=== PATIENT | female | born 1940 | race Caucasian/White ===

== ENCOUNTER 2018-12-25 21:13 | Inpatient (IN) ==
[2018-12-25] MEDS ORDERED: SODIUM CHLORIDE 0.9% 1000ML 2,000 ML IV ONE (21:28)
[2018-12-25] MEDS ORDERED: LEVOFLOXACIN/D5W 750 MG/150 ML BAG IV SCH (21:30)
[2018-12-25 21:55] LABS: Basophils # (auto) 0.02 K/uL (0-0.2); Basophils % (auto) 0.2 %; Eosinophils # (auto) 0.15 K/uL (0-0.5); Eosinophils % (auto) 1.1 %; Hematocrit (blood only) 33.1 % (37-47); Hemoglobin 11.2 g/dL (12.0-16.0); Immature Granulocytes # (auto) 0.03 K/uL (0.00-0.02); Immature Granulocytes % (auto) 0.2 %; Lymphocytes # (auto) 0.44 K/uL (1.2-3.4); Lymphocytes % (auto) 3.3 %; Mean Corpuscular Hgb Conc 33.8 g/dL (32-36); Mean Corpuscular Volume 89.7 fL (80-100); Mean Platelet Volume 9.7 fL (7.4-10.4); Monocytes # (auto) 0.75 K/uL (0.11-0.59); Monocytes % (auto) 5.7 %; Neutrophils # (auto) 11.85 K/uL (1.4-6.5); Neutrophils % (auto) 89.5 %; Platelet Count 284 K/uL (130-400); RDW Coefficient of Variation 13.5 % (11.5-14.5); RDW Standard Deviation 44.6 fL (36.4-46.3); Red Blood Count 3.69 M/uL (4.2-5.4); White Blood Count 13.24 K/uL (4.8-10.8)
--- NOTE | 2018-12-25 21:55 | XRay Report ---
XR chest 1V portable CLINICAL HISTORY: Sepsis COMPARISON STUDY: Chest radiograph October 26, 2015. FINDINGS: There is no pneumothorax or pleural effusion. There is consolidation or evidence for pulmon deyanira edema. There is extensive mitral annular calcification. Mild cardiomegaly is noted. IMPRESSION: No acute cardiopulmonary findings. Electronically signed by: Frank Beal M.D. 12/25/2018 9:54 PM
[2018-12-25 22:10] LABS: Partial Thromboplastin Ratio 0.9; Partial Thromboplastin Time 24.1 Seconds (21.0-31.0); Prothrombin Time 9.7 Seconds (9.0-12.0)
[2018-12-25 22:11] LABS: Alanine Aminotransferase 54 U/L (12-78); Albumin Level 2.9 gm/dl (3.4-5.0); Aspartate Aminotransferase 77 U/L (15-37); BUN Creatinine Ratio 23.9 (10-20); Blood Urea Nitrogen 39 mg/dl (7-18); Calcium 8.4 mg/dl (8.5-10.1); Carbon Dioxide 23 mmol/L (21-32); Chloride 94 mmol/L (98-107); Est GFR (African American) 33.9; Est GFR (Non-African American) 29.2; Glucose 136 mg/dl (70-99); Potassium 3.7 mmol/L (3.5-5.1); Sodium 127 mmol/L (136-145)
[2018-12-25 22:11] LABS: iSTAT Hemoglobin 11.6 g/dl (12.0-16.0); iSTAT Ionized Calcium 1.08 mmol/l (1.12-1.32)
[2018-12-25 22:14] LABS: Albumin Globulin Ratio 0.7 (0.9-2); Alkaline Phosphatase 91 U/L (45-117); Bilirubin,Total 0.5 mg/dl (0.2-1); Globulin 4.3 gm/dl (2.5-4.0); Total Protein 7.2 gm/dl (6.4-8.2)
[2018-12-25] MEDS ORDERED: IOVERSOL 100ml IV PRN (22:31)
--- NOTE | 2018-12-25 22:58 | CT Scan Report ---
CT ANGIOGRAPHY OF THE CHEST, PULMONARY EMBOLUS PROTOCOL CLINICAL HISTORY: Hypoxia. Tachycardia. COMPARISON STUDY: Chest CT October 25, 2015. TECHNIQUE: Following IV administration of 94 mL of Optiray-320, helical axial images of the chest wer e obtained utilizing the pulmonary embolus protocol. Maximal intensity projections and sagittal and coronal reformats were viewed on an independent 3D workstation. IV contrast was administered without complication. Automated exposure control was utilized for the study. A dose lowering technique was utilized adhering to the principles of ALARA. CT DOSE: 186.32 mGy.cm FINDINGS: No central or lobar pulmonary emboli are identified. The segmental and subsegmental pulmon deyanira arteries are suboptimally assessed due to respiratory motion. The heart is moderately enlarged. T here is extensive mitral annular calcification. There is no pericardial effusion. Mildly enlarged sub carinal lymph node is similar to CT of October 25, 2015. The lungs are suboptimally assessed given r espiratory motion. There are scattered tree-in-bud nodules predominantly within the lower lobes and r ight middle lobe. There is minimal bronchiectasis. No pneumothorax or pleural effusion is noted. Calc ified granulomas within the liver and spleen are incidentally noted. IMPRESSION: 1. Exam moderately compromised by respiratory motion. No central or lobar pulmonary emboli. 2. Lungs suboptimally assessed given significant respiratory motion artifact. Mild bilateral lower lo be, right middle lobe and lingular opacities which favor an infectious process such as an atypical my cobacterial infection. 3. Moderate cardiomegaly. Electronically signed by: Frank Beal M.D. 12/25/2018 10:56 PM
[2018-12-25] MEDS ORDERED: cefTRIAXone SODIUM 1,000 MG/50 ML BAG IV STA (23:09)
[2018-12-25] MEDS ORDERED: ACETAMINOPHEN 500 MG TAB PO STA (23:09)
--- NOTE | 2018-12-26 00:02 | History & Physical Report ---
Date of Service December 26, 2018 Assessment & Plan (1) Multifocal pneumonia: CT scan this admission, was read similarly to CT scan from admission 2015 , with concerns regarding possibility of atypical mycobacterial infection. At that time, pulmonary was consulted, but did not want bronchoscopy performed at that time. We will consult pulmonology again this time, and she and family are aware that if she does not respond completely to the treatment begun, that a bronchoscopy would be in order to find out the exact cause, and treat appropriately. Placed on ceftriaxone 1 g IV daily, levofloxacin 500 mg IV every 24 hours Duonebs every 4 hours while awake and every 2 hours when necessary. Solu-Medrol 40 mg IV every 8 hours. Present on Admission?: Yes (2) Sepsis: Sepsis with mild hypotension-- Responded to initial 2 L of normal saline fluid bolus by the ED. Then additional 500 mL's normal saline and 25 g of albumin IV. Present on Admission?: Yes (3) Hypotension: As above Present on Admission?: Yes (4) Hyponatremia: Likely secondary to hydrochlorothiazide, which will be held. Rehydration as noted above, and then retest in the a.m. Present on Admission?: Yes (5) Acute kidney injury: Likely related in part to decreased overall oral intake due to illness. We will hold lisinopril/HCTZ as it is a likely contributor in this setting. Present on Admission?: Yes History of Present Illness Chief Complaint: The patient presents to the emergency department with symptoms of generalized weakness and a cough that began a few months ago. Her family who is with her reports that she almost fell over when she was trying to walk due to generalized weakness. Primary Care Provider: Joellen Kolb MD The patient is an 78-year-old female who presents to the emergency department with worsening generalized weakness that began with an intermittent cough a few months ago, but worsened considerably over the past days. She has been treated recently with antibiotics and prednisone, but her symptoms have been persistent and progressive. She had a similar episode happened in 2014, when she was admitted to this hospital. Allergies Allergy/AdvReac Type Severity Reaction Status Date / Time Penicillins AdvReac Unknown GI SYMPTOMS Verified 12/25/18 22:48 Home Medications Home Medications Medication Instructions Recorded Confirmed Type amlodipine 2.5 mg PO DAILY 12/25/18 12/25/18 History aspirin [Aspir-81] 81 mg PO DAILY 12/25/18 12/25/18 History lisinopril-hydrochlorothiazide 1 tab PO DAILY 12/25/18 12/25/18 History lovastatin 40 mg PO DAILY 12/25/18 12/25/18 History metoprolol succinate 50 mg PO DAILY 12/25/18 12/25/18 History ranitidine HCl 150 mg PO HS 12/25/18 12/25/18 History Past Med/Surg History Medical History Heart murmur (Chronic) High blood pressure (Chronic) High cholesterol (Chronic) Family History Other No pertinent family history Social History Current Living Situation: Family Other Information That Helps Us Care for You: No Feels Safe at Home: Yes Safety Concerns: Feels Safe At This Time Smoking Status: Never smoker Do You Dip or Chew Tobacco: No Second Hand Exposure: No Tobacco Cessation Education Requested by Patient: No Hx Alcohol Use: No Hx Substance Use: No Beliefs That Will Affect Care: None Preferred Language: Sergio Reid Communication Ability: Effective Hospice Nurse Required: No Review of Systems The patient denies chest pain, palpitations, lower extremity swelling, sore throat, sweats, weight change, nausea, vomiting, diarrhea , constipation, abdominal pain, pelvic pain, blood in urine or stool, dysuria, urinary frequency or urgency, headache, memory loss, loss of consciousness, rash, abnormal bruising or bleeding, focal weakness, numbness or tingling in arms or legs, generalized arthralgias or myalgias, back or neck pain, or night sweats. The review of systems is otherwise negative other than for that already noted above, and at least 10 systems have been reviewed. Physical Exam 2 Vital Signs (Past 24 Hours): Last Vital Signs Temp 36.9 C 12/25/18 23:42 Pulse 113 H 12/25/18 23:45 Resp 32 H 12/25/18 23:45 BP 96/66 L 12/25/18 23:45 Pulse Ox 95 12/25/18 23:45 Physical Exam: The patient is awake, alert and oriented �3, normocephalic and atraumatic, lying in bed and in no acute distress. HEENT--PERRL, EOMI, mucous membranes and oropharynx dry. Neck--supple. No JVD. No bruits. Thyroid normal, trachea midline, no adenopathy. Heart--normal S1 and S2. No murmurs, rubs or gallops. Lungs--decreased breath sounds overall, few coarse breath sounds Abdomen--normal bowel sounds and soft. Nontender. Nondistended. Extremities--no cyanosis or clubbing. No edema. There are good distal pulses b/ l. Dermatologic--normal skin turgor, normal color, no abnormal lymph nodes, no rash. Neurologic--cranial nerves II through XII grossly intact. Rheumatologic--normal range of motion. Psychiatric--normal affect. Results & Data Laboratory Results Laboratory Results WBC 13.24 K/uL (4.8-10.8) H 12/25/18 21:32 RBC 3.69 M/uL (4.2-5.4) L 12/25/18 21:32 Hgb 11.2 g/dL (12.0-16.0) L 12/25/18 21:32 POC Hgb 11.6 g/dl (12.0-16.0) L 12/25/18 21:54 Hct 33.1 % (37-47) L 12/25/18 21:32 POC Hct 34 % (37-47) L 12/25/18 21:54 MCV 89.7 fL (80-100) 12/25/18 21:32 MCH 30.4 pg (25-34) 12/25/18 21:32 MCHC 33.8 g/dL (32-36) 12/25/18 21:32 RDW Std Deviation 44.6 fL (36.4-46.3) 12/25/18 21:32 RDW Coeff of [place] 13.5 % (11.5-14.5) 12/25/18 21:32 Plt Count 284 K/uL (130-400) 12/25/18 21:32 MPV 9.7 fL (7.4-10.4) 12/25/18 21:32 Immature Gran % (Auto) 0.2 % 12/25/18 21:32 Neut % (Auto) 89.5 % 12/25/18 21:32 Lymph % (Auto) 3.3 % 12/25/18 21:32 [place] % (Auto) 5.7 % 12/25/18 21:32 Eos % (Auto) 1.1 % 12/25/18 21:32 Baso % (Auto) 0.2 % 02/18/19 21:32 Immature Gran # (Auto) 0.03 K/uL (0.00-0.02) H 12/25/18 21:32 Neut # (Auto) 11.85 K/uL (1.4-6.5) H 12/25/18 21:32 Lymph # (Auto) 0.44 K/uL (1.2-3.4) L 12/25/18 21:32 [place] # (Auto) 0.75 K/uL (0.11-0.59) H 12/25/18 21:32 Eos # (Auto) 0.15 K/uL (0-0.5) 12/25/18 21:32 Baso # (Auto) 0.02 K/uL (0-0.2) 12/25/18 21:32 PT 9.7 Seconds (9.0-12.0) 12/25/18 21:32 INR 1.0 (0.9-1.1) 12/25/18 21:32 APTT 24.1 Seconds (21.0-31.0) 12/25/18 21:32 PTT Ratio 0.9 12/25/18 21:32 POC Sodium 127 mEq/L (135-144) L 12/25/18 21:54 Sodium 127 mmol/L (136-145) L 12/25/18 21:32 POC Potassium 3.8 mEq/L (3.3-5.0) 12/25/18 21:54 Potassium 3.7 mmol/L (3.5-5.1) 12/25/18 21:32 POC Chloride 95 mEq/L (101-112) L 12/25/18 21:54 Chloride 94 mmol/L (98-107) L 12/25/18 21:32 Carbon Dioxide 23 mmol/L (21-32) 12/25/18 21:32 POC Total CO2 21 mEq/l (24-31) L 12/25/18 21:54 Anion Gap 9.0 (3-11) 12/25/18 21:32 POC Anion Gap 17.0 mmol/L (16-25) 12/25/18 21:54 POC BUN 33 mg/dl (7-18) H 12/25/18 21:54 BUN 39 mg/dl (7-18) H 12/25/18 21:32 Creatinine 1.64 mg/dl (0.6-1.2) H 12/25/18 21:32 POC Creatinine 1.6 mg/dl (0.6-1.3) H 12/25/18 21:54 Est Cr Clr Drug Dosing Not Reportable 12/25/18 21:32 Est GFR ( Amer) 33.9 12/25/18 21:32 Est GFR (Non-Af Amer) 29.2 12/25/18 21:32 BUN/Creatinine Ratio 23.9 (10-20) H 12/25/18 21:32 Glucose 136 mg/dl (70-99) H 12/25/18 21:32 POC Glucose (other) 140 mg/dl (70-99) H 12/25/18 21:54 Osmolality 278 mOsm/kg (280-300) L 12/25/18 21:32 Lactate 1.7 mmol/L (0.4-2.0) 12/25/18 21:32 Calcium 8.4 mg/dl (8.5-10.1) L 12/25/18 21:32 POC Ioniz Calcium [place] 1.08 mmol/l (1.12-1.32) L 12/25/18 21:54 Phosphorus 3.0 mg/dl (2.5-4.9) 12/25/18 21:32 Total Bilirubin 0.5 mg/dl (0.2-1) 12/25/18 21:32 AST 77 U/L (15-37) H 12/25/18 21:32 ALT 54 U/L (12-78) 12/25/18 21:32 Alkaline Phosphatase 91 U/L (45-117) 12/25/18 21:32 Troponin I 0.130 ng/ml (0-0.045) H* 12/25/18 21:32 Total Protein 7.2 gm/dl (6.4-8.2) 12/25/18 21:32 Albumin 2.9 gm/dl (3.4-5.0) L 12/25/18 21:32 Globulin 4.3 gm/dl (2.5-4.0) H 12/25/18 21:32 Albumin/Globulin Ratio 0.7 (0.9-2) L 12/25/18 21:32 Urine Color Yellow 12/26/18 01:45 Urine Appearance Clear (Clear) 12/26/18 01:45 Urine pH 5.0 (4.5-7.5) 12/26/18 01:45 Ur Specific [place] > 1.045 (1.000-1.030) H 12/26/18 01:45 Urine Protein Negative (Negative) 12/26/18 01:45 Urine Glucose (UA) Negative (Negative) 12/26/18 01:45 Urine Ketones Negative (Negative) 12/26/18 01:45 Urine Blood Negative (Negative) 12/26/18 01:45 Urine Nitrite Negative (Negative) 12/26/18 01:45 Urine Bilirubin Negative (Negative) 12/26/18 01:45 Urine Urobilinogen Negative (Negative) 12/26/18 01:45 Ur Leukocyte Esterase Negative (Negative) 12/26/18 01:45 Urine Osmolality 471 mOsm/kg (500-800) L 12/26/18 01:45 Influenza Type A Ag Neg for Influ A (Neg) 12/25/18 21:38 Influenza Type B Ag Neg for Influ B (Neg) 12/25/18 21:38 Diagnostic Findings [place], [place] [phone] XRay Report Patient: ELIZABEHT HERRERAAdmit Date: 12/25/18 MR#: [id number]: [address] Acct ID:[id number]: Date: 1940City Zip: [place] [address] Age: 78Location: ED Sex: F Room/Bed: Att Phy: Diagnosis: WEAK AND COUGHING Jamilah Phy: Joellen Kolb MDService Date: 12/25/18 Fam Phy: Interpreting Phy: Frank Beal MD Admit Phy: Ordering Phy: Raciel Foote DO cc: ~ XR chest 1V portable CLINICAL HISTORY: Sepsis COMPARISON STUDY: Chest radiograph October 26, 2015. FINDINGS: There is no pneumothorax or pleural effusion. There is consolidation or evidence for pulmonary edema. There is extensive mitral annular calcification. Mild cardiomegaly is noted. IMPRESSION: No acute cardiopulmonary findings. Electronically signed by: Frank Beal M.D. 12/25/2018 9:54 PM Dictated: 12/25/[id number] Transcribed: 12/25/182151 [place], [place] [phone] CT Scan Report Patient: ELIZABETH HERRERAAdmit Date: 12/25/18 MR#: [id number]: [address] Acct ID:[id number]: Date: 1940City Zip: [place] [address] Age: 78Location: ED Sex: F Room/Bed: Att Phy: Diagnosis: WEAK AND COUGHING Jamilah Phy: Kennedi Lucgirish MDService Date: 12/25/18 Fam Phy: Interpreting Phy: Frank Beal MD Admit Phy: Ordering Phy: Raciel Foote, cc: ~ CT ANGIOGRAPHY OF THE CHEST, PULMONARY EMBOLUS PROTOCOL CLINICAL HISTORY: Hypoxia. Tachycardia. COMPARISON STUDY: Chest CT October 25, 2015. TECHNIQUE: Following IV administration of 94 mL of Optiray-320, helical axial images of the chest were obtained utilizing the pulmonary embolus protocol. Maximal intensity projections and sagittal and coronal reformats were viewed on an independent 3D workstation. IV contrast was administered without complication. Automated exposure control was utilized for the study. A dose lowering technique was utilized adhering to the principles of ALARA. CT DOSE: 186.32 mGy.cm FINDINGS: No central or lobar pulmonary emboli are identified. The segmental and subsegmental pulmonary arteries are suboptimally assessed due to respiratory motion. The heart is moderately enlarged. There is extensive mitral annular calcification. There is no pericardial effusion. Mildly enlarged subcarinal lymph node is similar to CT of October 25, 2015. The lungs are suboptimally assessed given respiratory motion. There are scattered tree-in-bud nodules predominantly within the lower lobes and right middle lobe. There is minimal bronchiectasis. No pneumothorax or pleural effusion is noted. Calcified granulomas within the liver and spleen are incidentally noted. IMPRESSION: 1. Exam moderately compromised by respiratory motion. No central or lobar pulmonary emboli. 2. Lungs suboptimally assessed given significant respiratory motion artifact. Mild bilateral lower lobe, right middle lobe and lingular opacities which favor an infectious process such as an atypical mycobacterial infection. 3. Moderate cardiomegaly. Electronically signed by: Frank Beal M.D. 12/25/2018 10:56 PM Dictated: 12/25/[id number] Transcribed: 12/25/188 Code Status & VTE Plan Code Status Full code VTE Prophylaxis Plan VTE Prophylaxis will be ordered: Yes _ (1) Sepsis Sepsis type: sepsis due to unspecified organism Qualified Code(s): A41.9 - Sepsis, unspecified organism
[2018-12-26] MEDS ORDERED: SODIUM CHLORIDE 0.9% 1000ML 500 ML IV ONE (01:02)
[2018-12-26] MEDS ORDERED: ALBUMIN 25% 50 ML IV ONE (01:03)
[2018-12-26] MEDS ORDERED: ALBUMIN HUMAN 25% 12.5 GM/50 ML VIAL IV ONE (01:15)
--- NOTE | 2018-12-26 01:27 | Emergency Department Note ---
Entered by Lanny Roman acting as a scribe for History of Present Illness General Chief complaint: Weakness Stated complaint: WEAK AND COUGHING Source: patient History of Present Illness Onset (ago): month(s) (a few months ago) Location: chest, upper extremity and lower extremity Pain Consistency: + other (worsening) Quality: + other (weakness and cough) Associated symptoms: + cough and + other (Positive runny nose, ear pain. Negative abdominal pain, urinary symptoms); no chest pain The patient is a 78 year old female who presents to the Emergency Room with complaints of weakness beginning a few months ago. She reports she is weak and has a cough but every time she completes a course of medications, her cough returns. She notes her cough has worsened and she has a runny nose and right ear pain. Pt denies chest pain, abdominal pain, or urinary symptoms. Her last normal BM was yesterday. No other exacerbating or remitting factors. She does note that she feels extremely weak. She denies any belly pain dysuria urgency or frequency. No nausea vomiting. Home Medications Home Medications Medication Instructions Recorded Confirmed Type amlodipine 2.5 mg PO DAILY 12/25/18 12/25/18 History aspirin [Aspir-81] 81 mg PO DAILY 12/25/18 12/25/18 History lisinopril-hydrochlorothiazide 1 tab PO DAILY 12/25/18 12/25/18 History lovastatin 40 mg PO DAILY 12/25/18 12/25/18 History metoprolol succinate 50 mg PO DAILY 12/25/18 12/25/18 History ranitidine HCl 150 mg PO HS 12/25/18 12/25/18 History Allergies Allergy/AdvReac Type Severity Reaction Status Date / Time Penicillins AdvReac Unknown GI SYMPTOMS Verified 12/25/18 22:48 Past Med/Surg History Medical History Heart murmur (Chronic) High blood pressure (Chronic) High cholesterol (Chronic) Family History Other No pertinent family history Social History Feels Safe at Home: Yes Smoking Status: Never smoker Review of Systems See HPI for pertinent positives & negatives. and A total of 10 systems reviewed and were otherwise negative Physical Exam Vital Signs Vital Signs - 24 hr 12/25/18 21:15 12/25/18 21:35 12/25/18 22:12 Temperature 38.1 C H Temperature Source Oral Sepsis Recent Fever Within 48 Hours Yes Sepsis New/Unexplained Change in Mental Status Yes Sepsis Action Taken by Nursing No Action Required Pulse Rate 118 H 113 H Respiratory Rate 21 27 H Respiratory Effort / Characteristics Non-Labored Spontaneous Respiratory Depth Normal Blood Pressure 96/60 L 94/52 L Blood Pressure Mean 72 66 Pulse Oximetry 89 L 93 95 Oxygen Delivery Method Room Air Room Air Room Air 12/25/18 22:15 12/25/18 23:13 12/25/18 23:15 Temperature Temperature Source Sepsis Recent Fever Within 48 Hours Sepsis New/Unexplained Change in Mental Status Sepsis Action Taken by Nursing Pulse Rate 112 H 113 H 113 H Respiratory Rate 32 H 25 H 29 H Respiratory Effort / Characteristics Respiratory Depth Blood Pressure 86/55 L 95/55 L 94/53 L Blood Pressure Mean 65 68 66 Pulse Oximetry 95 96 95 Oxygen Delivery Method Room Air Room Air Room Air 12/25/18 23:30 12/25/18 23:42 12/25/18 23:45 Temperature 36.9 C Temperature Source Oral Sepsis Recent Fever Within 48 Hours Sepsis New/Unexplained Change in Mental Status Sepsis Action Taken by Nursing Pulse Rate 113 H 113 H Respiratory Rate 30 H 32 H Respiratory Effort / Characteristics Respiratory Depth Blood Pressure 98/59 L 96/66 L Blood Pressure Mean 72 76 Pulse Oximetry 94 95 Oxygen Delivery Method Room Air Room Air 12/26/18 00:00 12/26/18 00:15 12/26/18 00:20 Temperature Temperature Source Sepsis Recent Fever Within 48 Hours Sepsis New/Unexplained Change in Mental Status Sepsis Action Taken by Nursing Pulse Rate 114 H 112 H 108 H Respiratory Rate 30 H 32 H 23 Respiratory Effort / Characteristics Respiratory Depth Blood Pressure 84/52 L 79/44 L 63/43 L Blood Pressure Mean 62 55 49 Pulse Oximetry 98 95 96 Oxygen Delivery Method Room Air Room Air Room Air 12/26/18 00:22 12/26/18 00:26 12/26/18 00:27 Temperature Temperature Source Sepsis Recent Fever Within 48 Hours Sepsis New/Unexplained Change in Mental Status Sepsis Action Taken by Nursing Pulse Rate 110 H 107 H 107 H Respiratory Rate 29 H 24 29 H Respiratory Effort / Characteristics Respiratory Depth Blood Pressure 78/43 L 76/44 L 73/42 L Blood Pressure Mean 54 54 52 Pulse Oximetry 95 97 97 Oxygen Delivery Method Room Air Room Air Room Air 12/26/18 00:31 12/26/18 00:45 Temperature Temperature Source Sepsis Recent Fever Within 48 Hours Sepsis New/Unexplained Change in Mental Status Sepsis Action Taken by Nursing Pulse Rate 107 H 106 H Respiratory Rate 28 H 29 H Respiratory Effort / Characteristics Respiratory Depth Blood Pressure 82/50 L 73/43 L Blood Pressure Mean 60 53 Pulse Oximetry 98 98 Oxygen Delivery Method Room Air Room Air GENERAL: Laying in bed, alert, disheveled, non-toxic EYE EXAM: normal conjunctiva. OROPHARYNX: no exudate, no erythema, lips, buccal mucosa, and tongue normal and mucous membranes are moist NECK: supple, no nuchal rigidity, no adenopathy, non-tender LUNGS: Clear to auscultation. Normal chest wall mechanics. Coarse at the bases. HEART: Positive systolic ejection murmur, S1 normal and S2 normal ABDOMEN: abdomen soft, non-tender, normo-active bowel, sounds, no masses, no rebound or guarding. BACK: Back is symmetrical on inspection and there is no deformity, no midline tenderness, no CVA tenderness. SKIN: no rashes and no bruising UPPER EXTREMITIES: upper extremities are grossly normal. LOWER EXTREMITIES: No pitting edema. NEURO EXAM: Normal sensorium, cranial nerves II-XII grossly intact, normal speech, no gross weakness of arms, no gross weakness of legs. Course ED COURSE: Vital signs were reviewed and showed hypotensive The patients medical record was reviewed The above diagnostic studies were performed and reviewed. ED treatments and interventions as stated above. 2123: The patient was evaluated in room C2. A complete history and physical examination was performed. 2155: Previous echo reviewed. EF of 50% with moderate to severe . 2356: I reviewed the patient's case with Dr. Fuentes [facility] Hospitalist. He will evaluate the patient for further management. 2300: Upon reevaluation, the patient is feeling slightly better. I discussed my findings with the patient and she understands and agrees with the treatment plan. Based on the patients age, coexisting illnesses, exam and lab findings the decision to treat as an inpatient was made. The patient remained stable while under my care. The patient will be evaluated for further management. Consultations Consultation #1: I reviewed the patient's case with Dr. Fuentes, [facility] Hospitalist. He will evaluate the patient for further management. Time: 23:56 Administered Medications Levofloxacin/Dextrose (Levaquin/D5w) 750 mg in 150 mls @ 100 mls/hr IV Q24H [facility] Stop: 12/27/18 21:29 Last Infusion: 12/26/18 00:23 Dose: 0 mls/hr Admin: 12/25/18 22:14 Dose: 100 mls/hr Sodium Chloride (Nss 1000ml) 500 mls @ 999 mls/hr IV .Q31M ONE Stop: 12/26/18 01:32 Last Admin: 12/26/18 01:10 Dose: 999 mls/hr Albumin Human (Albumin 25%) 50 mls @ 50 mls/hr IV ONE ONE Stop: 12/26/18 02:02 Last Admin: 12/26/18 01:18 Dose: 50 mls/hr Ioversol (Optiray 320 100ml) 94 ml IV ONCE PRN PRN Reason: Interaction Checking Stop: 12/29/18 22:30 Last Admin: 12/25/18 22:31 Dose: 94 ml Discontinued Medications Acetaminophen (Tylenol) 1,000 mg PO NOW STA Stop: 12/25/18 23:10 Last Admin: 12/25/18 23:38 Dose: Not Given Sodium Chloride (Nss 1000ml) 2,000 mls @ 999 mls/hr IV .Q2H1M ONE Stop: 12/25/18 23:28 Last Infusion: 12/26/18 00:54 Dose: 0 mls/hr Admin: 12/25/18 22:13 Dose: 999 mls/hr Ceftriaxone Sodium (Rocephin) 1,000 mg in 50 mls @ 100 mls/hr IV NOW STA Stop: 12/25/18 23:38 Last Infusion: 12/26/18 00:14 Dose: 0 mls/hr Admin: 12/25/18 23:38 Dose: 100 mls/hr Medical Decision Making Differential Diagnosis Differential diagnosis includes etiologies such as sepsis, UTI, pneumonia, metabolic, electrolyte abnormalities, cardiac sources, intracerebral event, toxicologic, neurologic, as well as others were entertained. Medical Records Attestation: I reviewed the patient's medical records. Home Medications Current Medication List: was personally reviewed by me Laboratory Data Attestation: I reviewed the patient's lab results. Result diagrams: 12/25/18 21:32 12/25/18 21:32 Lab Results 12/25/18 12/25/18 12/25/18 Range/Units 21:32 21:32 21:32 WBC 13.24 H (4.8-10.8) K/uL RBC 3.69 L (4.2-5.4) M/uL Hgb 11.2 L (12.0-16.0) g/dL POC Hgb (12.0-16.0) g/dl Hct 33.1 L (37-47) % POC Hct (37-47) % MCV 89.7 (80-100) fL MCH 30.4 (25-34) pg MCHC 33.8 (32-36) g/dL RDW Std Deviation 44.6 (36.4-46.3) fL RDW Coeff of Savanna 13.5 (11.5-14.5) % Plt Count 284 (130-400) K/uL MPV 9.7 (7.4-10.4) fL Immature Gran % (Auto) 0.2 % Neut % (Auto) 89.5 % Lymph % (Auto) 3.3 % Tyler % (Auto) 5.7 % Eos % (Auto) 1.1 % Baso % (Auto) 0.2 % Immature Gran # (Auto) 0.03 H (0.00-0.02) K/uL Neut # (Auto) 11.85 H (1.4-6.5) K/uL Lymph # (Auto) 0.44 L (1.2-3.4) K/uL Tyler # (Auto) 0.75 H (0.11-0.59) K/uL Eos # (Auto) 0.15 (0-0.5) K/uL Baso # (Auto) 0.02 (0-0.2) K/uL PT 9.7 (9.0-12.0) Seconds INR 1.0 (0.9-1.1) APTT 24.1 (21.0-31.0) Seconds PTT Ratio 0.9 POC Sodium (135-144) mEq/L Sodium 127 L (136-145) mmol/L POC Potassium (3.3-5.0) mEq/L Potassium 3.7 (3.5-5.1) mmol/L POC Chloride (101-112) mEq/L Chloride 94 L (98-107) mmol/L Carbon Dioxide 23 (21-32) mmol/L POC Total CO2 (24-31) mEq/l Anion Gap 9.0 (3-11) POC Anion Gap (16-25) mmol/L POC BUN (7-18) mg/dl BUN 39 H (7-18) mg/dl Creatinine 1.64 H (0.6-1.2) mg/dl POC Creatinine (0.6-1.3) mg/dl Est Cr Clr Drug Dosing Not Reportable Est GFR ( Amer) 33.9 Est GFR (Non-Af Amer) 29.2 BUN/Creatinine Ratio 23.9 H (10-20) Glucose 136 H (70-99) mg/dl POC Glucose (other) (70-99) mg/dl Osmolality (280-300) mOsm/kg Lactate (0.4-2.0) mmol/L Calcium 8.4 L (8.5-10.1) mg/dl POC Ioniz Calcium Cintia (1.12-1.32) mmol/l Total Bilirubin 0.5 (0.2-1) mg/dl AST 77 H (15-37) U/L ALT 54 (12-78) U/L Alkaline Phosphatase 91 (45-117) U/L Total Protein 7.2 (6.4-8.2) gm/dl Albumin 2.9 L (3.4-5.0) gm/dl Globulin 4.3 H (2.5-4.0) gm/dl Albumin/Globulin Ratio 0.7 L (0.9-2) Influenza Type A Ag (Neg) Influenza Type B Ag (Neg) 12/25/18 12/25/18 12/25/18 Range/Units 21:32 21:32 21:38 WBC (4.8-10.8) K/uL RBC (4.2-5.4) M/uL Hgb (12.0-16.0) g/dL POC Hgb (12.0-16.0) g/dl Hct (37-47) % POC Hct (37-47) % MCV (80-100) fL MCH (25-34) pg MCHC (32-36) g/dL RDW Std Deviation (36.4-46.3) fL RDW Coeff of Savanna (11.5-14.5) % Plt Count (130-400) K/uL MPV (7.4-10.4) fL Immature Gran % (Auto) % Neut % (Auto) % Lymph % (Auto) % Tyler % (Auto) % Eos % (Auto) % Baso % (Auto) % Immature Gran # (Auto) (0.00-0.02) K/uL Neut # (Auto) (1.4-6.5) K/uL Lymph # (Auto) (1.2-3.4) K/uL Tyler # (Auto) (0.11-0.59) K/uL Eos # (Auto) (0-0.5) K/uL Baso # (Auto) (0-0.2) K/uL PT (9.0-12.0) Seconds INR (0.9-1.1) APTT (21.0-31.0) Seconds PTT Ratio POC Sodium (135-144) mEq/L Sodium (136-145) mmol/L POC Potassium (3.3-5.0) mEq/L Potassium (3.5-5.1) mmol/L POC Chloride (101-112) mEq/L Chloride (98-107) mmol/L Carbon Dioxide (21-32) mmol/L POC Total CO2 (24-31) mEq/l Anion Gap (3-11) POC Anion Gap (16-25) mmol/L POC BUN (7-18) mg/dl BUN (7-18) mg/dl Creatinine (0.6-1.2) mg/dl POC Creatinine (0.6-1.3) mg/dl Est Cr Clr Drug Dosing Est GFR ( Amer) Est GFR (Non-Af Amer) BUN/Creatinine Ratio (10-20) Glucose (70-99) mg/dl POC Glucose (other) (70-99) mg/dl Osmolality 278 L (280-300) mOsm/kg Lactate 1.7 (0.4-2.0) mmol/L Calcium (8.5-10.1) mg/dl POC Ioniz Calcium Cintia (1.12-1.32) mmol/l Total Bilirubin (0.2-1) mg/dl AST (15-37) U/L ALT (12-78) U/L Alkaline Phosphatase (45-117) U/L Total Protein (6.4-8.2) gm/dl Albumin (3.4-5.0) gm/dl Globulin (2.5-4.0) gm/dl Albumin/Globulin Ratio (0.9-2) Influenza Type A Ag Neg for Influ A (Neg) Influenza Type B Ag Neg for Influ B (Neg) 12/25/18 Range/Units 21:54 WBC (4.8-10.8) K/uL RBC (4.2-5.4) M/uL Hgb (12.0-16.0) g/dL POC Hgb 11.6 L (12.0-16.0) g/dl Hct (37-47) % POC Hct 34 L (37-47) % MCV (80-100) fL MCH (25-34) pg MCHC (32-36) g/dL RDW Std Deviation (36.4-46.3) fL RDW Coeff of Savanna (11.5-14.5) % Plt Count (130-400) K/uL MPV (7.4-10.4) fL Immature Gran % (Auto) % Neut % (Auto) % Lymph % (Auto) % Tyler % (Auto) % Eos % (Auto) % Baso % (Auto) % Immature Gran # (Auto) (0.00-0.02) K/uL Neut # (Auto) (1.4-6.5) K/uL Lymph # (Auto) (1.2-3.4) K/uL Tyler # (Auto) (0.11-0.59) K/uL Eos # (Auto) (0-0.5) K/uL Baso # (Auto) (0-0.2) K/uL PT (9.0-12.0) Seconds INR (0.9-1.1) APTT (21.0-31.0) Seconds PTT Ratio POC Sodium 127 L (135-144) mEq/L Sodium (136-145) mmol/L POC Potassium 3.8 (3.3-5.0) mEq/L Potassium (3.5-5.1) mmol/L POC Chloride 95 L (101-112) mEq/L Chloride (98-107) mmol/L Carbon Dioxide (21-32) mmol/L POC Total CO2 21 L (24-31) mEq/l Anion Gap (3-11) POC Anion Gap 17.0 (16-25) mmol/L POC BUN 33 H (7-18) mg/dl BUN (7-18) mg/dl Creatinine (0.6-1.2) mg/dl POC Creatinine 1.6 H (0.6-1.3) mg/dl Est Cr Clr Drug Dosing Est GFR ( Amer) Est GFR (Non-Af Amer) BUN/Creatinine Ratio (10-20) Glucose (70-99) mg/dl POC Glucose (other) 140 H (70-99) mg/dl Osmolality (280-300) mOsm/kg Lactate (0.4-2.0) mmol/L Calcium (8.5-10.1) mg/dl POC Ioniz Calcium Cintia 1.08 L (1.12-1.32) mmol/l Total Bilirubin (0.2-1) mg/dl AST (15-37) U/L ALT (12-78) U/L Alkaline Phosphatase (45-117) U/L Total Protein (6.4-8.2) gm/dl Albumin (3.4-5.0) gm/dl Globulin (2.5-4.0) gm/dl Albumin/Globulin Ratio (0.9-2) Influenza Type A Ag (Neg) Influenza Type B Ag (Neg) Imaging Data Radiologist's Impression: Radiology results as stated below per my review and the radiologist's interpretation: XR chest 1V portable CLINICAL HISTORY: Sepsis COMPARISON STUDY: Chest radiograph October 26, 2015. FINDINGS: There is no pneumothorax or pleural effusion. There is consolidation or evidence for pulmonary edema. There is extensive mitral annular calcification. Mild cardiomegaly is noted. IMPRESSION: No acute cardiopulmonary findings. Electronically signed by: Frank Beal M.D. 12/25/2018 9:[address] ANGIOGRAPHY OF THE CHEST, PULMONARY EMBOLUS PROTOCOL CLINICAL HISTORY: Hypoxia. Tachycardia. COMPARISON STUDY: Chest CT October 25, 2015. TECHNIQUE: Following IV administration of 94 mL of Optiray-320, helical axial images of the chest were obtained utilizing the pulmonary embolus protocol. Maximal intensity projections and sagittal and coronal reformats were viewed on an independent 3D workstation. IV contrast was administered without complication. Automated exposure control was utilized for the study. A dose lowering technique was utilized adhering to the principles of ALARA. CT DOSE: 186.32 mGy.cm FINDINGS: No central or lobar pulmonary emboli are identified. The segmental and subsegmental pulmonary arteries are suboptimally assessed due to respiratory motion. The heart is moderately enlarged. There is extensive mitral annular calcification. There is no pericardial effusion. Mildly enlarged subcarinal lymph node is similar to CT of October 25, 2015. The lungs are suboptimally assessed given respiratory motion. There are scattered tree-in-bud nodules predominantly within the lower lobes and right middle lobe. There is minimal bronchiectasis. No pneumothorax or pleural effusion is noted. Calcified granulomas within the liver and spleen are incidentally noted. IMPRESSION: 1. Exam moderately compromised by respiratory motion. No central or lobar pulmonary emboli. 2. Lungs suboptimally assessed given significant respiratory motion artifact. Mild bilateral lower lobe, right middle lobe and lingular opacities which favor an infectious process such as an atypical mycobacterial infection. 3. Moderate cardiomegaly. Electronically signed by: Frank Beal M.D. 12/25/2018 10:56 PM ECG Data Attestation: I personally reviewed and interpreted this ECG as follows: Indication: weakness Rate (beats per minute): 116 Rhythm: sinus tachycardia Findings: + Q waves (septal), + T-wave inversion (high lateral) and + left axis deviation Comparison ECG Date: from (10/25/15) Change: the following changes noted (High lateral and left axis deviation are old. Septal Q waves are new. ) Blood Pressure Blood Pressure Findings: Low blood pressure Blood Pressure Disposition: further management by hospitalist LINDA Alex Patient is an 78-year-old female who presents the ER for weakness. Upon presentation she is found to be hypotensive, tachycardic febrile and tachypneic. Systolic blood pressures are in the 70s. Heart rates in the low 120s with a respiratory rate of 30. Labs were obtained and showed a leukocytosis of 13,000. No significant anemia. INR was unremarkable. BMP with hyponatremia at 127. Creatinine was elevated at 1.6. Mild transaminitis. Influenza a and B was negative. Chest x-ray was unremarkable. CT of the chest confirms a multifocal pneumonia. She was treated with IV Levaquin and IV Rocephin. Patient was given 2 L IV normal saline. Previous echo was reviewed with an EF of 30% and moderate to severe left ear. Patient and family were updated at bedside. Patient was admitted to the hospitalist with sepsis secondary to pneumonia. Systolic blood pressures did improve to the high 90s. At one point it did drop into the 60s but was responsive to fluids and trended up into the low 90s. Impression & Plan Sepsis, Pneumonia Critical Care Time I have personally spent 35 minutes of critical care time in the direct management of this patient. This includes bedside care, interpretation of diagnostic studies, and testing, discussion with consultants, patient, and family members, and other required patient management activities. This 35 minutes is in excess of all separately billable procedures. Critical Care Time: Yes Total Critical Care Time: 35 Discharge Plan Visit Data Chief Complaint: Weakness Stated Complaint: WEAK AND COUGHING ED Provider: Raciel Foote Discharge Problem: Sepsis, Pneumonia Patient Disposition: Being Evaluated by Hospitalist Sepsis Evaluation Sepsis screening result: Possible Severe Sepsis Risk Current stage of sepsis: severe sepsis Focused Exam Vital Signs Temp Pulse Resp BP Pulse Ox 12/26/18 00:45 106 H 29 H 73/43 L 98 12/26/18 00:31 107 H 28 H 82/50 L 98 12/26/18 00:27 107 H 29 H 73/42 L 97 12/26/18 00:26 107 H 24 76/44 L 97 12/26/18 00:22 110 H 29 H 78/43 L 95 12/26/18 00:20 108 H 23 63/43 L 96 12/26/18 00:15 112 H 32 H 79/44 L 95 12/26/18 00:00 114 H 30 H 84/52 L 98 12/25/18 23:45 113 H 32 H 96/66 L 95 12/25/18 23:42 36.9 C 12/25/18 23:30 113 H 30 H 98/59 L 94 12/25/18 23:15 113 H 29 H 94/53 L 95 12/25/18 23:13 113 H 25 H 95/55 L 96 12/25/18 22:15 112 H 32 H 86/55 L 95 12/25/18 22:12 113 H 27 H 94/52 L 95 12/25/18 21:35 93 12/25/18 21:15 38.1 C H 118 H 21 96/60 L 89 L The scribe's documentation has been prepared under my direction and personally reviewed by me in its entirety. I confirm that the note above accurately reflects all work, treatment, procedures, and medical decision making performed by me.
[2018-12-26 01:55] LABS: Appearance Urine Clear (Clear); Bilirubin Urine Negative (Negative); Color Urine Yellow; Glucose Urine UA Negative (Negative); Ketones Urine Negative (Negative); Leukocyte Esterase Urine Negative (Negative); Nitrite Urine Negative (Negative); Protein Urine Negative (Negative); Specific Gravity Urine > 1.045 (1.000-1.030); Urobilinogen Urine Negative (Negative)
[2018-12-26] MEDS ORDERED: ACETAMINOPHEN 325 MG TAB PO PRN (01:56)
[2018-12-26] MEDS ORDERED: ACETAMINOPHEN 1000 MG/100 ML IV IV PRN (01:56)
[2018-12-26] MEDS: methylPREDNISolone 40 MG in SYRINGE 0 ML IV SCH ×3 (02:46→18:00)
[2018-12-26] MEDS ORDERED: methylPREDNISolone 40 MG in SYRINGE 0 ML IV SCH (05:30)
[2018-12-26] MEDS ORDERED: LEVOFLOXACIN/D5W 500 MG/100 ML BAG IV SCH (05:30)
[2018-12-26 06:51] LABS: Basophils # (auto) 0.01 K/uL (0-0.2); Basophils % (auto) 0.1 %; Eosinophils # (auto) 0.07 K/uL (0-0.5); Eosinophils % (auto) 0.9 %; Hematocrit (blood only) 26.8 % (37-47); Hemoglobin 8.8 g/dL (12.0-16.0); Immature Granulocytes # (auto) 0.02 K/uL (0.00-0.02); Immature Granulocytes % (auto) 0.2 %; Lymphocytes # (auto) 0.63 K/uL (1.2-3.4); Lymphocytes % (auto) 7.7 %; Mean Corpuscular Hgb Conc 32.8 g/dL (32-36); Mean Corpuscular Volume 90.2 fL (80-100); Mean Platelet Volume 9.5 fL (7.4-10.4); Monocytes # (auto) 0.76 K/uL (0.11-0.59); Monocytes % (auto) 9.3 %; Neutrophils % (auto) 81.8 %; Platelet Count 217 K/uL (130-400); RDW Coefficient of Variation 13.7 % (11.5-14.5); RDW Standard Deviation 45.3 fL (36.4-46.3); Red Blood Count 2.97 M/uL (4.2-5.4); White Blood Count 8.19 K/uL (4.8-10.8)
[2018-12-26 07:07] LABS: INR 1.1 (0.9-1.1); Partial Thromboplastin Ratio 1.1; Partial Thromboplastin Time 29.4 Seconds (21.0-31.0); Prothrombin Time 11.1 Seconds (9.0-12.0)
[2018-12-26 07:20] LABS: RBC Morphology Unremarkable
[2018-12-26] MEDS: ALBUT/IPRATROP 3MG/0.5MG NEB 3 ML VIAL NEB SCH ×4 (07:26→19:04)
[2018-12-26] MEDS: HEPARIN SOD 5,000 UNIT/0.5 ML VIAL SQ SCH ×2 (08:09→21:55)
[2018-12-26] MEDS: ASPIRIN 81 MG ECTAB PO SCH (08:10)
[2018-12-26] MEDS: LOVASTATIN 20 MG TAB PO SCH (08:10)
[2018-12-26] MEDS ORDERED: LISINOPRIL/HCTZ 20/12.5MG 1 TAB TAB PO SCH (09:00)
[2018-12-26] MEDS ORDERED: AMLODIPINE BESYLATE 5 MG TAB PO SCH (09:00)
[2018-12-26] MEDS ORDERED: METOPROLOL SUCC 50MG EXT REL TAB PO SCH (09:00)
--- NOTE | 2018-12-26 14:44 | History & Physical Bridge Note ---
Date of Service December 26, 2018 History & Physical Bridge Note Patient seen and examined this morning. Feeling much better. Feels she is breathing better as well. No major complaints. Still tachycardic, but BP is stable. Continue abx; await pulmonology consult.
[2018-12-26] MEDS ORDERED: COUGH DROP (SUGAR FREE) LOZ 24 LOZ/1 BOX BUCCAL ONE (18:07)
[2018-12-26] MEDS ORDERED: COUGH DROP (SUGAR FREE) LOZ 24 LOZ/1 BOX BUCCAL PRN (21:59)
[2018-12-26] MEDS: LEVOFLOXACIN/D5W 500 MG/100 ML BAG IV SCH (22:14)
[2018-12-26] MEDS ORDERED: cefTRIAXone SODIUM 1,000 MG/50 ML BAG IV SCH (23:00)
[2018-12-27 02:07] LABS: Hematocrit (blood only) 27.9 % (37-47); Hemoglobin 9.5 g/dL (12.0-16.0); Immature Granulocytes # (auto) 0.02 K/uL (0.00-0.02); Immature Granulocytes % (auto) 0.3 %; Lymphocytes # (auto) 0.39 K/uL (1.2-3.4); Lymphocytes % (auto) 5.4 %; Mean Platelet Volume 9.5 fL (7.4-10.4); Monocytes # (auto) 0.15 K/uL (0.11-0.59); Monocytes % (auto) 2.1 %; Neutrophils # (auto) 6.66 K/uL (1.4-6.5); Neutrophils % (auto) 92.2 %; Platelet Count 262 K/uL (130-400); RDW Coefficient of Variation 13.9 % (11.5-14.5); RDW Standard Deviation 45.5 fL (36.4-46.3); White Blood Count 7.22 K/uL (4.8-10.8)
[2018-12-27 02:12] LABS: Mean Corpuscular Hgb Conc 34.1 g/dL (32-36)
[2018-12-27] MEDS: methylPREDNISolone 40 MG in SYRINGE 0 ML IV SCH ×3 (02:19→12:25)
[2018-12-27 02:22] LABS: BUN Creatinine Ratio 25.4 (10-20); Calcium 7.8 mg/dl (8.5-10.1); Creatinine Clr Calc Pharmacy 19.3 ml/min; Est GFR (African American) 33.9; Est GFR (Non-African American) 29.2; Magnesium 2.2 mg/dl (1.8-2.4); Potassium 3.8 mmol/L (3.5-5.1)
[2018-12-27 02:30] LABS: Phosphorus 4.1 mg/dl (2.5-4.9); Troponin I 0.823 ng/ml (0-0.045)
[2018-12-27 06:50] LABS: Basophils # (auto) 0.01 K/uL (0-0.2); Basophils % (auto) 0.1 %; Hematocrit (blood only) 28.3 % (37-47); Hemoglobin 9.4 g/dL (12.0-16.0); Immature Granulocytes # (auto) 0.02 K/uL (0.00-0.02); Immature Granulocytes % (auto) 0.2 %; Lymphocytes # (auto) 0.44 K/uL (1.2-3.4); Lymphocytes % (auto) 4.9 %; Mean Corpuscular Hgb Conc 33.2 g/dL (32-36); Mean Corpuscular Volume 89.8 fL (80-100); Mean Platelet Volume 9.7 fL (7.4-10.4); Monocytes # (auto) 0.29 K/uL (0.11-0.59); Monocytes % (auto) 3.3 %; Neutrophils # (auto) 8.15 K/uL (1.4-6.5); Neutrophils % (auto) 91.5 %; Platelet Count 281 K/uL (130-400); RDW Coefficient of Variation 13.8 % (11.5-14.5); RDW Standard Deviation 45.6 fL (36.4-46.3); Red Blood Count 3.15 M/uL (4.2-5.4); White Blood Count 8.91 K/uL (4.8-10.8)
[2018-12-27 07:00] LABS: Prothrombin Time 10.6 Seconds (9.0-12.0)
[2018-12-27] MEDS: ALBUT/IPRATROP 3MG/0.5MG NEB 3 ML VIAL NEB SCH (07:14)
[2018-12-27 07:17] LABS: BUN Creatinine Ratio 26.8 (10-20); Calcium 8.2 mg/dl (8.5-10.1); Creatinine Clr Calc Pharmacy 21.2 ml/min; Est GFR (African American) 38.1; Est GFR (Non-African American) 32.8; Magnesium 2.4 mg/dl (1.8-2.4); Potassium 3.6 mmol/L (3.5-5.1)
[2018-12-27 07:23] LABS: Troponin I 0.898 ng/ml (0-0.045)
[2018-12-27] MEDS: HEPARIN SOD 5,000 UNIT/0.5 ML VIAL SQ SCH ×2 (08:09→20:49)
[2018-12-27] MEDS: LOVASTATIN 20 MG TAB PO SCH (08:09)
[2018-12-27] MEDS: ASPIRIN 81 MG ECTAB PO SCH (08:10)
[2018-12-27] MEDS ORDERED: ALBUT/IPRATROP 3MG/0.5MG NEB 3 ML VIAL NEB PRN (10:22)
--- NOTE | 2018-12-27 10:39 | Cardiology Consultation ---
Date of Consultation December 27, 2018 Assessment & Plan (1) V-tach: The rhythm recorded on telemetry is wide-complex, but I think the nature of this arrhythmia is unclear. She has frequent atrial ectopy and obvious episodes of Kofi's phenomenon with beats conducted aberrantly. The wide- complex rhythm seen last evening was certainly irregular. I think there is a reasonable chance that this represents aberrant conduction rather than true ventricular tachycardia. This diagnosis is also supported by the relatively narrow nature of the QRS complex as well as the relatively rapid intrinsicoid deflection. The morphology of this wide-complex rhythm is identical to aberrantly conducted beats is seen at other times on telemetry. Certainly given her advanced age and comorbidities she has an element of coronary artery disease she does not appear to have symptoms associated with coronary artery disease in a preliminary review of her echocardiogram performed today reveals preserved LV systolic function. While she may have episodes of dizziness at times, she is known to have long-standing palpitations and has never experienced syncope. I did have a discussion with her regarding possible additional evaluation as well as possible interventions for heart disease including valve surgery, coronary interventions and device therapy. At this point she does not appear to be interested in more aggressive therapies given her absence of symptoms. I think the most reasonable intervention currently is simply resumption of her beta-blockade. We can continue to monitor on telemetry while she is admitted. I do not believe that her antibiotic therapy played a role in the arrhythmia identified. (2) Aortic stenosis: Long Standing Hx appears to be stable -Last echo 09/18/2018 showed NL LV function with EF of 65-70% LVH Grade II Diastolic dysfunction moderate to Severe Valvular Mild MS Mod MR no significant changes since previous echo 06/27/2017 -Blood Pressure control -Resume home BP meds upon resolution of YANG Additional echocardiogram pending. (3) Hypertension: Pressures have been reasonable -Resume home BP meds upon resolution of YANG Supervising Physician Co-Signing Physician Notes I saw and examined the patient at the bedside and agree with the documentation provided by Briefly, the patient was admitted for weakness and felt to have evidence of a pulmonary infection. She has a history of valvular heart disease. On telemetry monitoring overnight she was noted to have a wide- complex rhythm. She has been noted to have frequent atrial ectopy and atrial arrhythmias as well. She was not symptomatic with this rhythm which occurred during the or the morning hours. She did not describe symptoms of coronary disease or valvular heart disease to me during interview today. She appears to be a relatively sedentary individual who is limited by an element of fatigue more than any other symptom. She did report very rare episodes of chest discomfort at rest. These appear to be quite random and long-standing. They are relatively fleeting and she has no exertional symptoms History of Present Illness Reason for Consultation: V-Tach Attending Physician: Henri Sanchez MD History of Present Illness Admission HPI: The patient is an 78-year-old female who presents to the emergency department on 12/25 with worsening generalized weakness that began with an intermittent cough a few months ago, but worsened considerably over the past days. She has been treated recently with antibiotics and prednisone, but her symptoms have been persistent and progressive. She had a similar episode happened in 2014, when she was admitted to this hospital. Pt was started on on ceftriaxone 1 g IV daily, levofloxacin 500 mg IV every 24 hours, Duonebs every 4 hours while awake and every 2 hours when necessary and Solu-Medrol 40 mg IV every 8 hours.She improved throughout the night on this regimen and continued to improve the following day 12/26. During the evening of 12/26 she had episode of V-Tach and cardiology was consulted. Patient is sitting up in her chair watching the snow during the exam. She reports episode of v-tach was asyx, specfically denying chest pain, pressure, funny feeling in neck or left arm, upset stomach, n/v, and diaphoresis. She follows with Dr. Davis as an out pt. She relayed she does not understand what everyone is excited about as she has been " having these spells for 18 years". Upon further questioning she endorsed a long history of chest pressure, " I have been having pressure for years". She states it comes and comes and occurs both with activity and at rest. She endorses having these symptoms of the day [employer] however has not experienced them during this admission. She states from a cardiac standpoint she has been asyx since admission. Family history is positive for a CVA on her mothers side. 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 She lives in [place] alone in a trailer, however recently she has been living with her Family members as she has not been feeling well. Telemetry this morning showed Sinus PAC, Sinus Arrythmia, Sinus Tach, HR 110-120, large T waves Of Note: The nurse spoke to the pt's family and relayed that the patient is very stoic and often will down play symptoms. Family member stated prior to admission pt had 2 episodes where she had to stop moving and brace herself on the wall, they state it was not related to her breathing. Allergies Allergy/AdvReac Type Severity Reaction Status Date / Time Penicillins AdvReac Unknown GI SYMPTOMS Verified 12/25/18 22:48 Home Medications Home Medications Medication Instructions Recorded Confirmed Type amlodipine 2.5 mg PO DAILY 12/25/18 12/25/18 History aspirin [Aspir-81] 81 mg PO DAILY 12/25/18 12/25/18 History lisinopril-hydrochlorothiazide 1 tab PO DAILY 12/25/18 12/25/18 History lovastatin 40 mg PO DAILY 12/25/18 12/25/18 History metoprolol succinate 50 mg PO DAILY 12/25/18 12/25/18 History ranitidine HCl 150 mg PO HS 12/25/18 12/25/18 History Patient History Medical History Heart murmur (Chronic) High blood pressure (Chronic) High cholesterol (Chronic) Family History Other No pertinent family history Social History Current Living Situation: Family Other Information That Helps Us Care for You: No Feels Safe at Home: Yes Safety Concerns: Feels Safe At This Time Smoking Status: Never smoker Do You Dip or Chew Tobacco: No Second Hand Exposure: No Tobacco Cessation Education Requested by Patient: No Hx Alcohol Use: No Hx Substance Use: No Beliefs That Will Affect Care: None Preferred Language: [place] Tongan Communication Ability: Effective Eye Glass Frame Polisher Required: No Review of Systems Positive: Weakness, N/V on Tuesday [employer], Night time diaphoresis, chest pressure at rest, Heart murmur, Negative: Orthopnea, change in bowel or bladder habits, blood in stool, melena, abd pain, sensory changes, pain 12 point ros negative except as above Physical Exam 2 Vital Signs (Past 24 Hours): Last Vital Signs Temp 36.4 C L 12/27/18 07:22 Pulse 100 H 12/27/18 07:22 Resp 18 12/27/18 07:22 BP 108/60 12/27/18 07:22 Pulse Ox 99 12/27/18 07:22 Physical Exam: General: Short , well nourished, 78 year old female sitting up in chair HEENT: EOMI, visual nieto normal by confrontation Neck: - JVD, Trachea midline, normal to visual inspection, -for bruits, r+ radiation of cardiac murmur Cards: Tachycardia, with a holosystolic grade 3/6 murmur heard loudest at the right sternal border radiating to the carotids Resp: Left lower lobe not moving good air, course breath sounds, otherwise CTAB/ L Abd: NL BS, soft nontender, nondistended MSK: Moved all 4 extremities Skin: warm, dry, intact, well perfused Neuro: AAOx3 Results & Data Laboratory Results 12/27/18 12/27/18 12/27/18 Range/Units 06:11 06:11 06:11 WBC 8.91 (4.8-10.8) K/uL RBC 3.15 L (4.2-5.4) M/uL Hgb 9.4 L (12.0-16.0) g/dL Hct 28.3 L (37-47) % MCV 89.8 (80-100) fL MCH 29.8 (25-34) pg MCHC 33.2 (32-36) g/dL RDW Std Deviation 45.6 (36.4-46.3) fL RDW Coeff of [place] 13.8 (11.5-14.5) % Plt Count 281 (130-400) K/uL MPV 9.7 (7.4-10.4) fL Immature Gran % (Auto) 0.2 % Neut % (Auto) 91.5 % Lymph % (Auto) 4.9 % Talbot % (Auto) 3.3 % Eos % (Auto) 0.0 % Baso % (Auto) 0.1 % Immature Gran # (Auto) 0.02 (0.00-0.02) K/uL Neut # (Auto) 8.15 H (1.4-6.5) K/uL Lymph # (Auto) 0.44 L (1.2-3.4) K/uL Talbot # (Auto) 0.29 (0.11-0.59) K/uL Eos # (Auto) 0.00 (0-0.5) K/uL Baso # (Auto) 0.01 (0-0.2) K/uL PT 10.6 (9.0-12.0) Seconds INR 1.0 (0.9-1.1) Sodium 135 L (136-145) mmol/L Potassium 3.6 (3.5-5.1) mmol/L Chloride 105 (98-107) mmol/L Carbon Dioxide 20 L (21-32) mmol/L Anion Gap 10.0 (3-11) BUN 40 H (7-18) mg/dl Creatinine 1.49 H (0.6-1.2) mg/dl Est Cr Clr Drug Dosing 21.2 ml/min Est GFR ( Amer) 38.1 Est GFR (Non-Af Amer) 32.8 BUN/Creatinine Ratio 26.8 H (10-20) Glucose 151 H (70-99) mg/dl Calcium 8.2 L (8.5-10.1) mg/dl Phosphorus (2.5-4.9) mg/dl Magnesium 2.4 (1.8-2.4) mg/dl Troponin I 0.898 H* (0-0.045) ng/ml 12/27/18 12/27/18 12/26/18 Range/Units 01:45 01:45 18:00 WBC 7.22 (4.8-10.8) K/uL RBC 3.10 L (4.2-5.4) M/uL Hgb 9.5 L (12.0-16.0) g/dL Hct 27.9 L (37-47) % MCV 90.0 (80-100) fL MCH 30.6 (25-34) pg MCHC 34.1 (32-36) g/dL RDW Std Deviation 45.5 (36.4-46.3) fL RDW Coeff of Savanna 13.9 (11.5-14.5) % Plt Count 262 (130-400) K/uL MPV 9.5 (7.4-10.4) fL Immature Gran % (Auto) 0.3 % Neut % (Auto) 92.2 % Lymph % (Auto) 5.4 % Talbot % (Auto) 2.1 % Eos % (Auto) 0.0 % Baso % (Auto) 0.0 % Immature Gran # (Auto) 0.02 (0.00-0.02) K/uL Neut # (Auto) 6.66 H (1.4-6.5) K/uL Lymph # (Auto) 0.39 L (1.2-3.4) K/uL Talbot # (Auto) 0.15 (0.11-0.59) K/uL Eos # (Auto) 0.00 (0-0.5) K/uL Baso # (Auto) 0.00 (0-0.2) K/uL PT (9.0-12.0) Seconds INR (0.9-1.1) Sodium 133 L (136-145) mmol/L Potassium 3.8 (3.5-5.1) mmol/L Chloride 104 (98-107) mmol/L Carbon Dioxide 21 (21-32) mmol/L Anion Gap 8.0 (3-11) BUN 42 H (7-18) mg/dl Creatinine 1.64 H (0.6-1.2) mg/dl Est Cr Clr Drug Dosing 19.3 ml/min Est GFR ( Amer) 33.9 Est GFR (Non-Af Amer) 29.2 BUN/Creatinine Ratio 25.4 H (10-20) Glucose 190 H (70-99) mg/dl Calcium 7.8 L (8.5-10.1) mg/dl Phosphorus 4.1 D (2.5-4.9) mg/dl Magnesium 2.2 (1.8-2.4) mg/dl Troponin I 0.823 H* 1.580 H* (0-0.045) ng/ml Medications Administered Current Inpatient Medications Acetaminophen (Ofirmev) 1,000 mg IV Q8H PRN PRN Reason: Pain or Fever Stop: 01/25/19 01:55 Acetaminophen (Tylenol) 650 mg PO Q4H PRN PRN Reason: Pain or Fever Stop: 01/25/19 01:55 Albuterol (Duoneb) 3 ml NEB QIDR PRN PRN Reason: Shortness Of Breath Or Wheezing Stop: 01/25/19 07:59 Aspirin (Ecotrin Ectab) 81 mg PO DAILY JAZIEL Stop: 01/25/19 08:59 Last Admin: 12/27/18 08:10 Dose: 81 mg Heparin Sodium (Porcine) (Heparin Sodium (Porcine)) 5,000 units SQ Q12 JAZIEL Stop: 01/25/19 08:59 Last Admin: 12/27/18 08:09 Dose: 5,000 units Levofloxacin/Dextrose (Levaquin/D5w) 500 mg in 100 mls @ 100 mls/hr IV Q24H JAZIEL Stop: 12/31/18 22:59 Last Infusion: 12/26/18 23:22 Dose: Infused Ceftriaxone Sodium (Rocephin) 1,000 mg in 50 mls @ 100 mls/hr IV Q24H JAZIEL Stop: 12/31/18 23:29 Last Infusion: 12/27/18 00:33 Dose: Infused Methylprednisolone 40 mg/ (Syringe) 0.64 mls @ 1.5 mls/min IV Q8H JAZIEL Stop: 01/25/19 02:29 Last Admin: 12/27/18 02:19 Dose: 1.5 mls/min Ioversol (Optiray 320 100ml) 94 ml IV ONCE PRN PRN Reason: Interaction Checking Stop: 12/29/18 22:30 Last Admin: 12/25/18 22:31 Dose: 94 ml Lovastatin (Mevacor) 40 mg PO DAILY JAZIEL Stop: 01/25/19 08:59 Last Admin: 12/27/18 08:09 Dose: 40 mg Menthol (Nice) 1 rosa BUCCAL PRN PRN PRN Reason: Sore Throat Stop: 01/25/19 21:58 Last Admin: 12/26/18 22:04 Dose: 1 rosa Metoprolol Succinate (Toprol Xl) 50 mg PO QAM JAZIEL Stop: 01/26/19 10:16 Ranitidine HCl (Zantac) 150 mg PO HS JAZIEL Stop: 01/25/19 20:59 Last Admin: 12/26/18 21:52 Dose: 150 mg Resident Activity Tracking Resident Involvement: Resident Care Provided Care Provided: Adult Hospital Medicine
[2018-12-27] MEDS: METOPROLOL SUCC 50MG EXT REL TAB PO SCH (12:25)
--- NOTE | 2018-12-27 15:46 | Hospitalist Progress Note ---
Date of Service December 27, 2018 Assessment & Plan (1) V-tach: Overnight had periods of atrial tachycardia, and one run of ~20 seconds of NSVT. Completely asymptomatic. - Echo ordered - Per prelim report from cardiology, shows good EF and no major valvular issues. - Seen by cardiology - Appreciate recs; could consider further testing, but patient prefers minimal testing/procedures, so will hold off and can discuss with Dr. Davis outpatient. (2) NSTEMI (non-ST elevated myocardial infarction): Troponin peaked on 12/26 at 1.6. Patient had no chest pain. EKGs when she is in atrial tachycardia do show some lateral ST depressions. As above, patient prefers minimal testing, so defer further work up at this time. - Continue ASA 81mg daily - Continue statin, beta-neelima (3) Multifocal pneumonia: CT chest on 12/25 showed multifocal pneumonia with concerns for atypical mycobacterial infection. Similar to CT chest in 2014. At that time, pulmonary was consulted, but did not want bronchoscopy performed at that time. - Initially on ceftriaxone and levofloxacin. Ceftrixone discontinued on 12/27 as it does not provide additional coverage. - Duonebs standing and PRN - Initially on Solu-Medrol; switched to prednisone on 12/27 (4) Acute kidney injury: Baseline Cr is ~0.8. On admission, up to 1.6. Likely pre-renal vs. ATN from hypotension. - Recieved IV fluids; now BP normal. - Trend Cr (5) Sepsis: Sepsis with mild hypotension. Improved with IV fluids and antibiotics. - Resolved by 12/27 (6) Hypotension: As above (7) Hyponatremia: Likely secondary to hydrochlorothiazide. - Holding HCTZ - Given IV fluids initially. - By 12/27, had resolved. (8) DVT prophylaxis: Heparin 5000 units Q12h Subjective 78yo F w/ hx of HTN and likely CAD who presents with pneumonia and hypotension. This morning she is feeling well. No major complaints. No further shortness of breath and cough has greatly improved. Reports no fevers/chills, chest pain, shortness of breath, abdominal pain, nausea, or vomiting. Physical Exam 2 Vital Signs (Past 24 Hours): Last Vital Signs Temp 36.7 C 12/27/18 11:02 Pulse 98 H 12/27/18 11:02 Resp 17 12/27/18 11:02 BP 97/52 L 12/27/18 11:02 Pulse Ox 97 12/27/18 11:02 Constitutional: WD/WN, vitals as above Eyes: EOM intact bilaterally; no conjunctival abnormality ENMT: external ear and nose normal, oropharynx normal Neck: trachea midline, no thyromegaly normal visual inspection Respiratory: normal respiratory effort, lungs clear to auscultation no respiratory distress Cardiovascular: RRR, no murmur, no edema Gastrointestinal (Abdomen): Inspection/Auscultation: abdomen normal to inspection; abdomen not distended Musculoskeletal: no cyanosis or clubbing, extremities motor strength 5/5 Skin: no rashes, warm and dry Neurologic: moves all extremities and awake Psychiatric: Orientation: alert, oriented to person and cooperative _ (1) Sepsis Sepsis type: sepsis due to unspecified organism Qualified Code(s): A41.9 - Sepsis, unspecified organism
[2018-12-27] MEDS ORDERED: CHLORASEPTIC 1.4% SOLN 180 ML BTL MT PRN (16:59)
[2018-12-27] MEDS: LEVOFLOXACIN/D5W 500 MG/100 ML BAG IV SCH (20:49)
[2018-12-27] MEDS: FLUTICASONE PROPIONATE NA SPR 16 GM BTL SCH (20:52)
[2018-12-28 05:55] LABS: Immature Granulocytes # (auto) 0.06 K/uL (0.00-0.02); Immature Granulocytes % (auto) 0.5 %; Lymphocytes # (auto) 0.67 K/uL (1.2-3.4); Lymphocytes % (auto) 5.4 %; Mean Corpuscular Hgb Conc 33.3 g/dL (32-36); Mean Corpuscular Volume 90.6 fL (80-100); Mean Platelet Volume 9.3 fL (7.4-10.4); Monocytes # (auto) 0.82 K/uL (0.11-0.59); Monocytes % (auto) 6.6 %; Neutrophils # (auto) 10.92 K/uL (1.4-6.5); Neutrophils % (auto) 87.5 %; Platelet Count 333 K/uL (130-400); RDW Coefficient of Variation 14.3 % (11.5-14.5); RDW Standard Deviation 47.5 fL (36.4-46.3); Red Blood Count 2.98 M/uL (4.2-5.4); White Blood Count 12.47 K/uL (4.8-10.8)
[2018-12-28 06:05] LABS: Prothrombin Time 10.6 Seconds (9.0-12.0)
[2018-12-28 06:35] LABS: BUN Creatinine Ratio 27.1 (10-20); Calcium 8.2 mg/dl (8.5-10.1); Creatinine Clr Calc Pharmacy 23.1 ml/min; Est GFR (African American) 42.1; Est GFR (Non-African American) 36.3; Magnesium 2.4 mg/dl (1.8-2.4); Potassium 4.3 mmol/L (3.5-5.1)
[2018-12-28] MEDS: LOVASTATIN 20 MG TAB PO SCH (07:46)
[2018-12-28] MEDS: ASPIRIN 81 MG ECTAB PO SCH (07:46)
[2018-12-28] MEDS: METOPROLOL SUCC 50MG EXT REL TAB PO SCH (07:46)
[2018-12-28] MEDS: FLUTICASONE PROPIONATE NA SPR 16 GM BTL SCH (07:47)
[2018-12-28] MEDS: HEPARIN SOD 5,000 UNIT/0.5 ML VIAL SQ SCH (07:47)
[2018-12-28] MEDS ORDERED: predniSONE 20 MG TAB PO SCH (09:00)
--- NOTE | 2018-12-28 17:24 | Discharge Summary ---
Date of Service December 28, 2018 Admission HPI Per Admitting Provider The patient is an 78-year-old female who presents to the emergency department with worsening generalized weakness that began with an intermittent cough a few months ago, but worsened considerably over the past days. She has been treated recently with antibiotics and prednisone, but her symptoms have been persistent and progressive. She had a similar episode happened in 2014, when she was admitted to this hospital. Principal Diagnosis Multifocal pneumonia Discharge Exam Constitutional WD/WN, vitals as above Eyes EOM intact bilaterally; no conjunctival abnormality ENMT external ear and nose normal, oropharynx normal Neck trachea midline, no thyromegaly normal visual inspection Respiratory normal respiratory effort, lungs clear to auscultation no respiratory distress Cardiovascular RRR, no murmur, no edema Gastrointestinal (Abdomen) Inspection/Auscultation: abdomen normal to inspection; abdomen not distended Musculoskeletal no cyanosis or clubbing, extremities motor strength 5/5 Skin no rashes, warm and dry Neurologic moves all extremities and awake Psychiatric Orientation: alert, oriented to person and cooperative Discharge Data Allergies Allergy/AdvReac Type Severity Reaction Status Date / Time Penicillins AdvReac Unknown GI SYMPTOMS Verified 12/25/18 22:48 Consultations 12/25/18 23:09 ED Decision to Admit Stat 12/27/18 10:10 Consult Cardiology Routine Ordered Studies 12/25/18 22:01 CT angio chest PE protocol Stat Hospital Course (1) V-tach: Overnight on 12/27, she had periods of atrial tachycardia, and one run of ~20 seconds of NSVT. Completely asymptomatic. - Echo ordered - Showed EF 60-65% without wall motion abnormalities. Moderate and moderate/severe mitral stenosis. - Seen by cardiology - Appreciate recs; could consider further testing, but patient prefers minimal testing/procedures, so will hold off and can discuss with Dr. Davis as outpatient. (2) Hypotension: Normally has high blood pressure, but her BP was low-normal the entire hospital stay. She reports feeling weak for several weeks, and I wonder if her BP was low the entire time, partly due to iatrogenic hypotension. - On discharge, only continued the beta-neelima for her cardiac arrythemias. - Hold other HTN meds until seen by PCP. (3) NSTEMI (non-ST elevated myocardial infarction): Troponin peaked on 12/26 at 1.6. Patient had no chest pain. EKGs when she is in atrial tachycardia do show some lateral ST depressions. As above, patient prefers minimal testing, so defer further work up at this time. - Continue ASA 81mg daily - Continue statin, beta-neelima (4) Multifocal pneumonia: CT chest on 12/25 showed multifocal pneumonia with concerns for atypical mycobacterial infection. Similar to CT chest in 2014. At that time, pulmonary was consulted, but did not want bronchoscopy performed at that time. - Initially on ceftriaxone and levofloxacin. Ceftrixone discontinued on 12/27 as it does not provide additional coverage. - Duonebs standing and PRN - Initially on Solu-Medrol; switched to prednisone on 12/27 - Discharged on levofloxacin and steroids for 3 more days. (5) Acute kidney injury: Baseline Cr is ~0.8. On admission, up to 1.6. Likely pre-renal vs. ATN from hypotension. - Received IV fluids. - Cr was down to 1.37 on discharge, returning to normal. - Will need BMP in 1-2 weeks to ensure it has resolved. (6) Sepsis: Sepsis with mild hypotension. Improved with IV fluids and antibiotics. - Resolved by 12/27 (7) Hyponatremia: Likely secondary to hydrochlorothiazide. - Held HCTZ - Given IV fluids initially. - By 12/27, had resolved with Na up to 138. (8) DVT prophylaxis: Heparin 5000 units Q12h Total Time Total Time Spent Total Time Spent (In Minutes): 45 Total Time Includes: Examination of the Patient, Discharge Planning and Medication Reconciliation Discharge Plan Discharge Items Patient Disposition: Home - Self-Care Reason For Visit: MULTIFOCAL PNEUMONIA Discharge Diagnosis: Pneumonia, fast heart rate Discharge Goals: Decrease discomfort and Improve function Activity: Resume your previous activity Non-emergency contact: Primary Care Provider and Hiv/Aids Care Nurse Call non-emergency contact if: you have any medication questions, your symptoms worsen, your pain is unusual for you and your temperature is above 100.5 Follow-up/Referrals: Joellen Kolb MD [Primary Care Provider] - 01/01/19 10:00 am (Please, follow up at [facility] with Dr. Kolb on TuesdayJanuary 01 at 10:00 am. *If you need to change this appointment, call the office at [phone]. ) Diet: Heart Healthy Addtl Provider Instructions: Ms. Spence, You came to hospital with weakness that was caused by a pneumonia. Your blood pressure was quite low when you came to the hospital. We gave you antibiotics and fluids, and your blood pressure returned to normal and you felt much better. We are giving you 3 more days of antibiotics (to take 1 time per day). You may take this with your other medications as well. Take the first dose of the levofloxacin (antibiotic) tonight before bed, then the next 2 nights as well until it is gone. You can take the steroid in the morning or night, but only take it one time per day. Take all the medications until they are gone. We are having you hold your blood pressure medications except for your metoprolol because your blood pressure even after feeling very well is only 90/ 60. This is low enough that you don't need your two extra medications (the amlodipine and the lisinopril-hydrochlorothiazide). Please hold these until you see your primary doctor (Dr. Kolb) in the office. You had a rise in your troponin level and also had some funny heart rhythms while in the hospital. We had the heart doctors see you. In discussion with them , you did not want to have further testing, so we restarted your metoprolol and the rhythms reduced. Please follow up with Dr. Davis to help make sure your heart is doing well. Prescriptions: New prednisone 20 mg Tablet 20 mg PO DAILY Qty: 3 RF: 0 levofloxacin 500 mg tablet 500 mg PO DAILY 3 Days Qty: 3 RF: 0 Continue metoprolol succinate 50 mg Tablet Extended Release 24 Hr 50 mg PO DAILY RF: 0 ranitidine HCl 150 mg Tablet 150 mg PO HS RF: 0 aspirin [Aspir-81] 81 mg Tablet,Delayed Release (Dr/Ec) 81 mg PO DAILY RF: 0 lovastatin 40 mg Tablet 40 mg PO DAILY RF: 0 Discontinued lisinopril-hydrochlorothiazide 20-12.5 mg Tablet 1 tab PO DAILY RF: 0 amlodipine 2.5 mg Tablet 2.5 mg PO DAILY RF: 0 Stand-Alone Forms: My [facility] [facility]/Other Patient Handouts: Levofloxacin Oral tablet, Prednisone Oral tablet , Pneumonia Prevent, Pneumonia Tx, Pneumonia Dc Discharge Orders: Discharge Order (Routine); Ordered 12/28/18 Ordered By: Henri Sanchez Admission Data Admit Date/Time: 12/26/18 00:01 Attending Provider: Henri Sanchez Admit Provider: Primitivo Fuentes Primary Care Provider: Joellen Kolb Other Providers: Henri Sanchez ; Emigdio Calhoun Service: Telemetry Other Interventions: Discharge Summary Assessment (RN) Last Done: 12/28/18 11:27 DC Date/Time DO NOT enter until pt leaves facility: 12/28/18 15:39
== END 2018-12-28 15:39 | disposition home or self-care (01) ==
LOC: EDACCT# → ED 21:13 → 2S 12-26 00:01 → SUATTDRO 12-26 00:01 → 2S 12-26 01:18

== ENCOUNTER 2019-03-02 11:19 | Inpatient (IN) ==
--- NOTE | 2019-03-02 12:05 | XRay Report ---
XR chest 1V portable HISTORY: Short of breath. COMPARISON: Chest 02/21/2019. FINDINGS: The heart remains enlarged. Small bilateral pleural effusions, mild interstitial pulmonary edema, and bibasilar densities have progressed. No pneumothorax. Mitral calcifications are again note d. IMPRESSION: Interval progression of the mild pulmonary edema, small bilateral pleural effusions, and bibasilar op acities. Electronically signed by: Valeriy Clarke M.D. 03/02/2019 12:04 PM
[2019-03-02 12:28] LABS: Basophils # (auto) 0.04 K/uL (0-0.2); Basophils % (auto) 0.4 %; Eosinophils # (auto) 0.05 K/uL (0-0.5); Eosinophils % (auto) 0.5 %; Hematocrit (blood only) 35.9 % (37-47); Immature Granulocytes # (auto) 0.02 K/uL (0.00-0.02); Immature Granulocytes % (auto) 0.2 %; Lymphocytes # (auto) 1.11 K/uL (1.2-3.4); Lymphocytes % (auto) 12.2 %; Mean Corpuscular Hgb Conc 33.4 g/dL (32-36); Mean Corpuscular Volume 93.7 fL (80-100); Mean Platelet Volume 9.3 fL (7.4-10.4); Monocytes # (auto) 0.58 K/uL (0.11-0.59); Monocytes % (auto) 6.4 %; Neutrophils # (auto) 7.33 K/uL (1.4-6.5); Neutrophils % (auto) 80.3 %; Platelet Count 300 K/uL (130-400); RDW Coefficient of Variation 14.2 % (11.5-14.5); RDW Standard Deviation 48.3 fL (36.4-46.3); Red Blood Count 3.83 M/uL (4.2-5.4); White Blood Count 9.13 K/uL (4.8-10.8)
[2019-03-02 12:40] LABS: Partial Thromboplastin Ratio 0.9; Partial Thromboplastin Time 24.6 Seconds (21.0-31.0); Prothrombin Time 10.5 Seconds (9.0-12.0)
[2019-03-02 12:46] LABS: Alanine Aminotransferase 23 U/L (12-78); Albumin Level 3.3 gm/dl (3.4-5.0); Aspartate Aminotransferase 25 U/L (15-37); BUN Creatinine Ratio 25.4 (10-20); Blood Urea Nitrogen 20 mg/dl (7-18); Carbon Dioxide 25 mmol/L (21-32); Chloride 107 mmol/L (98-107); Creatinine Clr Calc Pharmacy 35.4 ml/min; Est GFR (African American) 81.4; Est GFR (Non-African American) 70.2; Glucose 102 mg/dl (70-99); Potassium 4.3 mmol/L (3.5-5.1); Sodium 139 mmol/L (136-145)
[2019-03-02 12:51] LABS: Albumin Globulin Ratio 0.8 (0.9-2); Alkaline Phosphatase 78 U/L (45-117); Bilirubin,Total 0.5 mg/dl (0.2-1); Globulin 3.9 gm/dl (2.5-4.0); Total Protein 7.2 gm/dl (6.4-8.2); Troponin I < 0.015 ng/ml (0-0.045)
[2019-03-02] MEDS ORDERED: LEVOFLOXACIN/D5W 750 MG/150 ML BAG IV SCH (13:15)
--- NOTE | 2019-03-02 14:17 | History & Physical Report ---
Date of Service March 02, 2019 Assessment & Plan (1) Acute respiratory failure with hypoxia: (2) Dyspnea: (3) Multifocal pneumonia: - Admit to med surg - Pt hypoxic at 87% on RA upon arrival to the ER, placed on supplemental O2 at 2L and sats improved. She does not wear home O2 at baseline. - Consult pulmonology for possible needs for repeat bronch. - Was recently completed by Dr. 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 - had been taking doxycline 100 mg Q12H x 10 days, and has 1 day left of the treatment. - Failure of outpatient tx with doxycycline, will continue on levaquin IV for now, received 1 dose in the ER. Allergic to pcns. Checking a MRSA swab. - Supportive care and pulmonary toilet: duonebs QID and Q2H prn, incentive spirometry, flutter - Sputum culture (4) CHF (congestive heart failure): - Stable - no signs of volume overload - Continue asa 81 mg, lovastatin 40 mg daily, metoprolol succinate 50 mg daily (5) NSTEMI (non-ST elevated myocardial infarction): - hx of such, stable (6) Aortic stenosis: - Loud, stable (7) Hypertension: - Cont antihypertensives as above. BP 140s/70s at bedside. (8) DVT prophylaxis: - teds, scds, lovenox sub q History of Present Illness Primary Care Provider: Joellen Kolb MD This is an 79 yo F with PMHx of CAD s/p NSTEMI Dec 2018, HTN, HLD, pulmonary HTN, moderate aortic stenosis, mitral stenosis, dwarfism, GERD, osteoporosis who presents with worsening shortness of breath. The patient was admitted in Dec for multifocal pneumonia and treated with ceftriaxone and levaquin and completed a course of steroids at that time. She then underwent bronchoscopy by Dr. Palomino on 02/14/19 for hemoptysis, and found moderate amount of milky white purulent secretions from all bibasilar segments of the right lower lobe. 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 She had been taking doxycline 100 mg Q12H x 10 days, and has 1 day left of the treatment. Pt notes that in the past 3 days specifically she in unable to participate in normal ADLs, including standing up to dry dishes, and becomes significantly short of breath within 10 steps. She denies fever, chills or sweats. Pt reports overall feeling of malaise and generalized fatigue. Allergi es Allergy/AdvReac Type Severity Reaction Status Date / Time acetaminophen [From Tylenol] AdvReac Intermediate Nausea Verified 03/02/19 12:30 Penicillins AdvReac Unknown GI SYMPTOMS Verified 03/02/19 12:30 Home Medications Home Medications Medication Instructions Recorded Confirmed Type aspirin [Aspir-81] 81 mg PO DAILY 12/25/18 03/02/19 History lovastatin 40 mg PO DAILY 12/25/18 03/02/19 History metoprolol succinate 50 mg PO DAILY 12/25/18 03/02/19 History ranitidine HCl 150 mg PO HS 12/25/18 03/02/19 History Breo Ellipta 1 inh INHALATION DAILY 02/14/19 03/02/19 History Vortex Holding Chamber 02/14/19 03/02/19 History doxycycline hyclate 100 mg PO BID 03/02/19 03/02/19 History Past Med/Surg History Medical History NSTEMI (non-ST elevated myocardial infarction) (Acute) Heart murmur (Chronic) High blood pressure (Chronic) High cholesterol (Chronic) Family History Other No pertinent family history Social History Preferred Language: Turkish Communication Ability: Effective Beliefs That Will Affect Care: None Current Living Situation: Family Feels Safe at Home: Yes Smoking Status: Never smoker Second Hand Exposure: No Hx Alcohol Use: No Hx Substance Use: No Review of Systems Review of Systems: Constitutional: No fever, sweats or chills Eyes: No diplopia, no worsening or blurred vision ENT: normal hearing, no trouble swallowing Respiratory: + cough, + chest heaviness, +minor sputum production, +dyspnea on exertion but not at rest. Cardiovascular: No chest pain, tightness or palpitations Abdomen: No pain, nausea, vomiting, diarrhea or constipation, last BM yesterday. Musculoskeletal: No joint pain, calf pain, swelling Neurologic: No weakness, numbness/tingling, or balance problems Psychiatric: No anxiety or depression Skin: No rash or itch Physical Exam Physical Exam: General: awake, alert, no apparent distress, + dwarfism Head: Normocephalic, atraumatic ENT: PERRL, EOMI, no pharyngeal exudate, mucous membranes moist Chest: On 2 L via NC with sats at 98%, + absent breath sounds bibasilarly, + crackles in LLL and RML, RUL, no wheezing of rales Cardiac: Regular rate and rhythm, no murmur, no JVD, normal peripheral pulses, good capillary refill Abdominal: NABS x 4 quadrants, soft, nontender to palpation, no rebound, guarding or tenderness Extremities: Normal inspection, no peripheral edema or erythema, calfs nontender to palpation Psych: Normal mood and affect Neuro: AAO x 3, strength intact bilaterally and related 5/5, no motor deficits, speech is clear, no peripheral sensory deficits Constitutional: WD/WN, vitals as above Eyes: normal visual nieto by confrontation and + anicteric sclerae Neck: normal visual inspection and trachea midline Respiratory: normal respiratory effort; no respiratory distress Auscultation: + crackles; no wheezes Cardiovascular: Rate/Rhythm: regular rate and regular rhythm Gastrointestinal (Abdomen): Inspection/Auscultation: abdomen not distended Percussion/Palpation: abdomen soft; abdomen nontender Musculoskeletal: Head/Neck/Chest: normocephalic and head atraumatic Neg for peripheral LE edema, + pedal pulses Skin: no rashes, warm and dry Neurologic: awake; not confused Speech / Cognition: normal speech Psychiatric: A+Ox3, euthymic affect Lymphatic: Exam as done by Veda López DO Results & Data Vital Signs (Past 12 Hours) Vital Signs Temp Pulse Pulse Resp BP BP Pulse Ox 03/02/19 13:00 76 25 H 162/99 H 96 03/02/19 11:51 98 03/02/19 11:35 86 L 03/02/19 11:30 37.0 C 100 H 22 194/99 H 86 L Diagnostic Findings XR chest 1V portable HISTORY: Short of breath. COMPARISON: Chest 02/21/2019. FINDINGS: The heart remains enlarged. Small bilateral pleural effusions, mild interstitial pulmonary edema, and bibasilar densities have progressed. No pneumothorax. Mitral calcifications are again noted. IMPRESSION: Interval progression of the mild pulmonary edema, small bilateral pleural effusions, and bibasilar opacities. ECG Additional Comments: 02-MAR-2019 11:25:34 [facility]-EDSTAT ROUTINE RETRIEVAL Sinus rhythm with Premature atrial complexes Septal infarct , age undetermined Abnormal ECG When compared with ECG of 27-DEC-2018 06:15, Premature ventricular complexes are no longer Present Septal infarct is now Present Nonspecific T wave abnormality has replaced inverted T waves in Lateral leads 25mm/s 10mm/mV 150Hz 9.0.8 12SL 241 KARI: 16 Unconfirmed Vent. rate 83 BPM CA interval 168 ms QRS duration 84 ms QT/QTc 370/434 ms P-R-T axes 0 -27 62 Code Status & VTE Plan Code Status DNR - discussed with pt and daughter at bedside. Supervising Physician Co-Signing Physician Notes Pt seen and examined by me. Denies chest pain. States her SOB is much better with the O2 in place. Tolerating PO without issue. Agree with HPI/ROS as noted by PA See above for my exam in PE section Agree with plan as outlined above PNA, failure of outpt tx Hypoxic on RA, stable on NC now Mild pleural effusions, likely related to post-bronch status and PNA Monitor for fluid overload Abx t/c ECHO for further management (1) CHF (congestive heart failure) Heart failure chronicity: unspecified Heart failure type: unspecified Qualified Code(s): I50.9 - Heart failure, unspecified (2) Dyspnea Dyspnea type: unspecified Qualified Code(s): R06.00 - Dyspnea, unspecified
[2019-03-02] MEDS ORDERED: ACETAMINOPHEN 325 MG TAB PO PRN (14:40)
[2019-03-02] MEDS ORDERED: ONDANSETRON INJ 2 MG/ML 2 ML VIAL IV PRN (14:40)
--- NOTE | 2019-03-02 17:26 | Emergency Department Note ---
Entered by Mati Muhammad acting as a scribe for Raciel Foote DO History of Present Illness General Chief complaint: Shortness of Breath/Dyspnea Source: patient History of Present Illness Provider complaint: Shortness of breath Onset (ago): day(s) 3 Location: chest Pain Consistency: + constant and + other (Worsening) Relieved By: + none Exacerbated By: + none Associated symptoms: + cough and + other (No abdominal pain); no chest pain and no nausea/vomiting The patient is an 79 year old female who presents to the Emergency Room with complaints of worsening shortness of breath that has been persistent over the past 3 days ago. The patient was recently diagnosed with pneumonia and placed on Doxycycline on February 21. The pneumonia was found during a lung procedure that she had done. The patient also notes she was supposed to have a breathing test done 5 days ago but she did not. The shortness of breath is worse with exertion and any movement, even moving around in bed. She denies any chest pain but does state her chest feels tight. She also denies any abdominal pain, nausea, vomiting, diarrhea, urinary symptoms, or fevers. She has a history of asthma and takes baby Aspirin daily. Home Medications Home Medications Medication Instructions Recorded Confirmed Type aspirin [Aspir-81] 81 mg PO DAILY 12/25/18 03/02/19 History lovastatin 40 mg PO DAILY 12/25/18 03/02/19 History metoprolol succinate 50 mg PO DAILY 12/25/18 03/02/19 History ranitidine HCl 150 mg PO HS 12/25/18 03/02/19 History Breo Ellipta 1 inh INHALATION DAILY 02/14/19 03/02/19 History Vortex Holding Chamber 02/14/19 03/02/19 History doxycycline hyclate 100 mg PO BID 03/02/19 03/02/19 History Allergies Allergy/AdvReac Type Severity Reaction Status Date / Time acetaminophen [From Tylenol] AdvReac Intermediate Nausea Verified 03/02/19 12:30 Penicillins AdvReac Unknown GI SYMPTOMS Verified 03/02/19 12:30 Past Med/Surg History Medical History NSTEMI (non-ST elevated myocardial infarction) (Acute) Heart murmur (Chronic) High blood pressure (Chronic) High cholesterol (Chronic) Family History Other No pertinent family history Social History Preferred Language: Kinyarwanda Communication Ability: Effective 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 and A total of 10 systems reviewed and were otherwise negative Physical Exam Vital Signs Vital Signs - 24 hr 03/02/19 11:30 03/02/19 11:35 03/02/19 11:51 Temperature 37.0 C Temperature Source Oral Sepsis Recent Fever Within 48 Hours No Sepsis New/Unexplained Change in Mental Status No Sepsis Action Taken by Nursing No Action Required Pulse Rate 100 H Pulse Rate [Left Finger] Respiratory Rate 22 Respiratory Effort / Characteristics Non-Labored Respiratory Depth Normal Respiratory Pattern Regular Blood Pressure 194/99 H Blood Pressure [Left Arm] Blood Pressure Mean 130 Blood Pressure Mean [Left Arm] Pulse Oximetry 86 L 86 L 98 Oxygen Delivery Method Room Air Room Air Nasal Cannula Oxygen Flow Rate 2 03/02/19 13:00 03/02/19 14:00 03/02/19 15:58 Temperature Temperature Source Sepsis Recent Fever Within 48 Hours Sepsis New/Unexplained Change in Mental Status Sepsis Action Taken by Nursing Pulse Rate Pulse Rate [Left Finger] 76 79 78 Respiratory Rate 25 H 22 20 Respiratory Effort / Characteristics Non-Labored Non-Labored Non-Labored Respiratory Depth Normal Normal Normal Respiratory Pattern Regular Regular Regular Blood Pressure Blood Pressure [Left Arm] 162/99 H 148/79 H 158/68 H Blood Pressure Mean Blood Pressure Mean [Left Arm] 120 102 98 Pulse Oximetry 96 99 96 Oxygen Delivery Method Nasal Cannula Nasal Cannula Nasal Cannula Oxygen Flow Rate 2 2 2 03/02/19 16:16 Temperature Temperature Source Sepsis Recent Fever Within 48 Hours Sepsis New/Unexplained Change in Mental Status Sepsis Action Taken by Nursing Pulse Rate Pulse Rate [Left Finger] Respiratory Rate Respiratory Effort / Characteristics Respiratory Depth Respiratory Pattern Blood Pressure Blood Pressure [Left Arm] Blood Pressure Mean Blood Pressure Mean [Left Arm] Pulse Oximetry 96 Oxygen Delivery Method Nasal Cannula Oxygen Flow Rate 2 GENERAL: Sitting up in bed on NC, alert, well appearing, well nourished, no distress, non-toxic EYE EXAM: normal conjunctiva. OROPHARYNX: no exudate, no erythema, lips, buccal mucosa, and tongue normal and mucous membranes are moist NECK: supple, no nuchal rigidity, no adenopathy, non-tender LUNGS: Wheezing at the bilateral bases. Normal chest wall mechanics HEART: Positive systolic injection murmur, S1 normal and S2 normal ABDOMEN: abdomen soft, non-tender, normo-active bowel, sounds, no masses, no rebound or guarding. BACK: Back is symmetrical on inspection and there is no deformity, no midline tenderness, no CVA tenderness. SKIN: no rashes and no bruising UPPER EXTREMITIES: upper extremities are grossly normal. LOWER EXTREMITIES: No pitting edema. NEURO EXAM: Normal sensorium, cranial nerves II-XII grossly intact, normal speech, no gross weakness of arms, no gross weakness of legs. Course ED COURSE: Vital signs were reviewed and showed hypertension The patients medical record was reviewed The above diagnostic studies were performed and reviewed. ED treatments and interventions as stated above. 1202: The patient was evaluated in room C10. A complete history and physical examination was performed. 1320: Upon reevaluation, the patient is resting in bed. I discussed my findings with the patient and she understands and agrees with the treatment plan. 1330: I spoke to Dr. Rene Oakes [facility] Hospitalist about the patient's case and s he is going to accept her for further evaluation. Based on the patients age, coexisting illnesses, exam and lab findings the decision to treat as an inpatient was made. The patient remained stable while under my care. The patient will be evaluated for further management. Consultations Consultation #1: I spoke to Dr. Rene Oakes [facility] Hospitalist about the patient's case and she is going to accept her for further evaluation. Time: 13:30 Administered Medications Levofloxacin/Dextrose (Levaquin/D5w) 750 mg in 150 mls @ 100 mls/hr IV Q24H JAZIEL Stop: 03/04/19 13:14 Last Infusion: 03/02/19 15:49 Dose: 0 mls/hr Documented by: [id number] Admin: 03/02/19 13:52 Dose: 100 mls/hr Documented by: [id number] Medical Decision Making Differential Diagnosis Differential diagnoses includes but is not limited to pneumonia, bronchitis, COPD/Asthma exacerbation, pneumothorax, pulmonary embolism, congestive heart failure, acute coronary syndrome Medical Records Attestation: I reviewed the patient's medical records. Home Medications Current Medication List: was personally reviewed by me Laboratory Data Attestation: I reviewed the patient's lab results. Result diagrams: 03/02/19 12:15 03/02/19 12:15 Lab Results 03/02/19 03/02/19 03/02/19 Range/Units 12:15 12:15 12:15 WBC 9.13 (4.8-10.8) K/uL RBC 3.83 L (4.2-5.4) M/uL Hgb 12.0 (12.0-16.0) g/dL Hct 35.9 L (37-47) % MCV 93.7 (80-100) fL MCH 31.3 (25-34) pg MCHC 33.4 (32-36) g/dL RDW Std Deviation 48.3 H (36.4-46.3) fL RDW Coeff of [place] 14.2 (11.5-14.5) % Plt Count 300 (130-400) K/uL MPV 9.3 (7.4-10.4) fL Immature Gran % (Auto) 0.2 % Neut % (Auto) 80.3 % Lymph % (Auto) 12.2 % Bertie % (Auto) 6.4 % Eos % (Auto) 0.5 % Baso % (Auto) 0.4 % Immature Gran # (Auto) 0.02 (0.00-0.02) K/uL Neut # (Auto) 7.33 H (1.4-6.5) K/uL Lymph # (Auto) 1.11 L (1.2-3.4) K/uL Bertie # (Auto) 0.58 (0.11-0.59) K/uL Eos # (Auto) 0.05 (0-0.5) K/uL Baso # (Auto) 0.04 (0-0.2) K/uL PT 10.5 (9.0-12.0) Seconds INR 1.0 (0.9-1.1) APTT 24.6 (21.0-31.0) Seconds PTT Ratio 0.9 Sodium 139 (136-145) mmol/L Potassium 4.3 (3.5-5.1) mmol/L Chloride 107 (98-107) mmol/L Carbon Dioxide 25 (21-32) mmol/L Anion Gap 7.0 (3-11) BUN 20 H (7-18) mg/dl Creatinine 0.79 (0.6-1.2) mg/dl Est Cr Clr Drug Dosing 35.4 ml/min Est GFR ( Amer) 81.4 Est GFR (Non-Af Amer) 70.2 BUN/Creatinine Ratio 25.4 H (10-20) Glucose 102 H (70-99) mg/dl Calcium 9.0 (8.5-10.1) mg/dl Total Bilirubin 0.5 (0.2-1) mg/dl AST 25 (15-37) U/L ALT 23 (12-78) U/L Alkaline Phosphatase 78 (45-117) U/L Troponin I < 0.015 (0-0.045) ng/ml Total Protein 7.2 (6.4-8.2) gm/dl Albumin 3.3 L (3.4-5.0) gm/dl Globulin 3.9 (2.5-4.0) gm/dl Albumin/Globulin Ratio 0.8 L (0.9-2) Imaging Data Radiologist's Impression: Radiology results as stated below per my review and the radiologist's interpretation: XR chest 1V portable HISTORY: Short of breath. COMPARISON: Chest 02/21/2019. FINDINGS: The heart remains enlarged. Small bilateral pleural effusions, mild interstitial pulmonary edema, and bibasilar densities have progressed. No pneumothorax. Mitral calcifications are again noted. IMPRESSION: Interval progression of the mild pulmonary edema, small bilateral pleural ef fusions, and bibasilar opacities. Electronically signed by: Valeriy Clarke M.D. 03/02/2019 12:04 PM ECG Data Attestation: I personally reviewed and interpreted this ECG as follows: Indication: SOB/dyspnea Rate (beats per minute): 83 Rhythm: normal sinus Findings: + other (Poor baseline in V4 and V5), + Q waves (Septal) and + left axis deviation Blood Pressure Blood Pressure Findings: Elevated blood pressure Blood Pressure Disposition: further management by hospitalist LINDA Narrative Patient is a 79-year-old female that presents the ER for shortness of breath which is been worsening over the past 72 hours. Patient was sent in by the PCP as she was found to be hypoxic. Upon presentation to the ER patient was 86% on room air. She is recently been treated for pneumonia. Labs were obtained and showed no significantly distress or anemia. INR was normal BMP along with LFTs bilirubin and troponin was negative. Chest x-ray with mild pulmonary edema. EKG showed no acute ischemia. Patient was up to the bedside. She was given a dose of IV Levaquin and admitted to the hospital for hypoxia with a fever at this point is likely secondary to CHF although could be from bronchitis. Impression & Plan Hypoxia, CHF (congestive heart failure), Dyspnea Discharge Plan Visit Data *Final* Discharge Date/Time: 03/02/19 16:16 Chief Complaint: Shortness of Breath/Dyspnea ED Provider: Raciel Foote Discharge Problem: Hypoxia, CHF (congestive heart failure), Dyspnea Patient Disposition: Admitted As Inpatient Discharge Instructions Interventions: ED Discharge Assessment Last Done: 03/02/19 16:16 Discharge Problem: CHF (congestive heart failure) Qualifiers: Heart failure type: unspecified Heart failure chronicity: unspecified Qualified Code(s): I50.9 - Heart failure, unspecified Dyspnea Qualifiers: Dyspnea type: unspecified Qualified Code(s): R06.00 - Dyspnea, unspecified The scribe's documentation has been prepared under my direction and personally reviewed by me in its entirety. I confirm that the note above accurately reflects all work, treatment, procedures, and medical decision making performed by me.
[2019-03-02] MEDS: ALBUT/IPRATROP 3MG/0.5MG NEB 3 ML VIAL NEB SCH ×3 (17:56→23:07)
[2019-03-02] MEDS: guaiFENesin 600 MG TABCR PO SCH (20:55)
[2019-03-02] MEDS ORDERED: ENOXAPARIN INJ 40 MG/0.4 ML SYR SQ SCH (21:00)
[2019-03-03] MEDS: ALBUT/IPRATROP 3MG/0.5MG NEB 3 ML VIAL NEB SCH ×6 (04:11→23:10)
[2019-03-03 06:53] LABS: Hematocrit (blood only) 35.4 % (37-47); Hemoglobin 11.6 g/dL (12.0-16.0); Mean Corpuscular Hgb Conc 32.8 g/dL (32-36); Mean Corpuscular Volume 94.1 fL (80-100); Mean Platelet Volume 9.8 fL (7.4-10.4); Platelet Count 294 K/uL (130-400); RDW Coefficient of Variation 14.3 % (11.5-14.5); Red Blood Count 3.76 M/uL (4.2-5.4); White Blood Count 7.59 K/uL (4.8-10.8)
[2019-03-03 07:26] LABS: BUN Creatinine Ratio 21.9 (10-20); Calcium 8.7 mg/dl (8.5-10.1); Creatinine Clr Calc Pharmacy 25.6 ml/min; Est GFR (African American) 55.8; Est GFR (Non-African American) 48.1; Potassium 4.4 mmol/L (3.5-5.1)
[2019-03-03 07:30] LABS: Albumin Globulin Ratio 0.8 (0.9-2); Bilirubin,Total 0.4 mg/dl (0.2-1)
[2019-03-03] MEDS: guaiFENesin 600 MG TABCR PO SCH ×2 (08:25→20:10)
[2019-03-03] MEDS: LOVASTATIN 20 MG TAB PO SCH (08:26)
[2019-03-03] MEDS: METOPROLOL SUCC 50MG EXT REL TAB PO SCH (08:26)
[2019-03-03] MEDS: ASPIRIN 81 MG ECTAB PO SCH (08:26)
--- NOTE | 2019-03-03 09:52 | Infectious Disease Consult ---
Date of Consultation March 03, 2019 Assessment & Plan (1) Pneumonia: 79-year-old female admitted with acute hypoxia, now much improved with bilateral changes on chest x-ray with previous BAL cultures positive for Aspergillus and CMV. I would not expect such rapid improvement with either CMV or aspergillus without specific, so findings on previous bronchoscopy of unclear significance. Patient is at risk for both infections because of prior steroid use, but suspect these are not pathogens in this case. Worry about possibility of fluid overload as cause given rapid clinical improvement. Patient will be continued on levofloxacin for now pending further culture results. Have ordered additional CMV studies. Will follow. (2) Aspergillosis: (3) CMV (cytomegalovirus) infection: History of Present Illness Reason for Consultation: Bilateral pneumonia, Aspergillus on recent bronchoscopy Attending Physician: Veda López DO History of Present Illness 79-year-old female with history of coronary artery disease status post MD, aortic stenosis, mitral insufficiency, pulmonary hypertension, congestive heart failure, who was hospitalized in December for pneumonia treated with ceftriaxone and levofloxacin. She continued with intermittent episodes of shortness of breath with abnormal x-ray, and earlier this month underwent bronchoscopy with findings of mucopurulent secretions with cultures positive for Aspergillus. CMV PCR also positive on bronchial fluid. Patient was given 10-day course of doxycycline. She is now readmitted with 1 to 2-day history of severely worsening shortness of breath with hypoxia. She was felt to have possible bilateral pneumonia and was started on levofloxacin. Patient has improved significantly since admission, breathing much improved. Patient has not had any significant fever, worsening sputum production, or chest pain. Has been off and on steroids for the past 6 months. Allergies Allergy/AdvReac Type Severity Reaction Status Date / Time acetaminophen [From Tylenol] AdvReac Intermediate Nausea Verified 03/02/19 12:30 Penicillins AdvReac Unknown GI SYMPTOMS Verified 03/02/19 12:30 Home Medications Home Medications Medication Instructions Recorded Confirmed Type aspirin [Aspir-81] 81 mg PO DAILY 12/25/18 03/02/19 History lovastatin 40 mg PO DAILY 12/25/18 03/02/19 History metoprolol succinate 50 mg PO DAILY 12/25/18 03/02/19 History ranitidine HCl 150 mg PO HS 12/25/18 03/02/19 History Breo Ellipta 1 inh INHALATION DAILY 02/14/19 03/02/19 History Vortex Holding Chamber 02/14/19 03/02/19 History doxycycline hyclate 100 mg PO BID 03/02/19 03/02/19 History Patient History Medical History NSTEMI (non-ST elevated myocardial infarction) (Acute) Heart murmur (Chronic) High blood pressure (Chronic) High cholesterol (Chronic) Family History Other No pertinent family history Social History Preferred Language: Sri Lankan Communication Ability: Effective 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 Beliefs That Will Affect Care: None Current Living Situation: Family Other Information That Helps Us Care for You: No Feels Safe at Home: Yes Safety Concerns: Feels Safe At This Time Smoking Status: Never smoker Second Hand Exposure: No Hx Alcohol Use: No Hx Substance Use: No Review of Systems Review of Systems: All systems reviewed & are unremarkable except as noted in HPI & below Physical Exam Constitutional: WD/WN, vitals as above comfortable; no acute distress Eyes: PERRL, conjunctivae normal, anicteric sclerae ENMT: external ear and nose normal, oropharynx normal Neck: trachea midline, no thyromegaly neck nontender Respiratory: normal respiratory effort and normal percussion; no respiratory distress and does not use accessory muscles Auscultation: + rales (Bibasilar) Cardiovascular: Rate/Rhythm: regular rate and regular rhythm Heart Sounds: normal S1, normal S2 and + murmur (Loud systolic); no gallop and no cardiac rub Vessels: normal peripheral pulses; no JVD Gastrointestinal (Abdomen): normal bowel sounds, soft, nontender, no hepatosplenomegaly Musculoskeletal: no cyanosis or clubbing, extremities motor strength 5/5 Spine: thoracic spine normal to inspection and lumbar spine normal to inspection; no cervical spinal tenderness Skin: no rashes, warm and dry normal turgor; no lesions Neurologic: patellar DTR's 2+ bilat, sensation intact no focal motor deficits Psychiatric: A+Ox3, euthymic affect Orientation: cooperative Lymphatic: no cervical or axillary lymphadenopathy no inguinal lymphadenopathy Results & Data Vital Signs (Past 12 Hours) Vital Signs Temp Pulse Resp BP BP Pulse Ox 03/03/19 07:31 95 H 18 95 03/03/19 07:00 36.7 C 93 H 18 148/82 H 92 03/03/19 04:14 92 H 16 94 03/03/19 00:17 37.0 C 96 H 20 124/71 92 03/02/19 23:07 89 16 97 Laboratory Results Short CBC 03/02/19 03/03/19 Range/Units 12:15 06:31 WBC 9.13 7.59 (4.8-10.8) K/uL Hgb 12.0 11.6 L (12.0-16.0) g/dL Hct 35.9 L 35.4 L (37-47) % Plt Count 300 294 (130-400) K/uL BMP 03/02/19 03/03/19 12:15 06:31 Sodium 139 139 Potassium 4.3 4.4 Chloride 107 109 H Carbon Dioxide 25 24 BUN 20 H 24 H Creatinine 0.79 1.08 Glucose 102 H 93 Calcium 9.0 8.7 Cardiac Enzymes 03/02/19 Range/Units 12:15 Troponin I < 0.015 (0-0.045) ng/ml Liver Function 03/02/19 03/03/19 Range/Units 12:15 06:31 Total Bilirubin 0.5 0.4 (0.2-1) mg/dl AST 25 23 (15-37) U/L ALT 23 18 (12-78) U/L Alkaline Phosphatase 78 71 (45-117) U/L Albumin 3.3 L 3.0 L (3.4-5.0) gm/dl Diagnostic Findings Microbiology 03/02/19 23:45 Sputum, Expectorated Gram Stain - Final XR chest 1V portable HISTORY: Short of breath. COMPARISON: Chest 02/21/2019. FINDINGS: The heart remains enlarged. Small bilateral pleural effusions, mild interstitial pulmonary edema, and bibasilar densities have progressed. No pneumothorax. Mitral calcifications are again noted. IMPRESSION: Interval progression of the mild pulmonary edema, small bilateral pleural effusions, and bibasilar opacities. Electronically signed by: Valeriy Clarke M.D. 03/02/2019 12:04 PM Dictated: 03/02/19 1203 Transcribed: 03/02/19 1203 (1) Pneumonia Laterality: bilateral Lung location: lower lobe of lung Pneumonia type: due to unspecified organism Qualified Code(s): J18.1 - Lobar pneumonia, unspecified organism
[2019-03-03] MEDS ORDERED: FUROSEMIDE 40 MG TAB PO ONE (09:54)
--- NOTE | 2019-03-03 10:07 | Pulmonary Consultation ---
Date of Consultation March 03, 2019 Assessment & Plan (1) Acute respiratory failure with hypoxia: Impression: 1. Pulmonary vascular congestion with CHF picture, cardiomegaly, pleural effusion right greater than left, in elderly patient who has been recently treated for pneumonia representing fluid overload. 2. It is difficult to determine if the patient has pneumonia or not, the patient was recently treated for community-acquired pneumonia. However, chest x-ray is compatible with CHF. 3. Right-sided pleural effusion which could be parapneumonic, however it favors fluid overload. 4. No evidence of aspergillus infection. 5. The presence CMV by PCR on bronchial fluid does not diagnosis CMV infection. Plan: 1. Lasix 40 mg p.o. now. 2. If the pleural fluid are not cleared by diuresis, thoracentesis would be helpful, discussed with the patient. 3. The patient is planned to have PFT, this should be delayed for 2 weeks until she feels better. 4. Change antibiotics to Levaquin p.o. and complete the course of 5 days only. 5. Obtain echocardiogram. 6. Obtain BNP and procalcitonin. Thank you History of Present Illness Reason for Consultation: Pneumonia Requesting Physician: Dr. López Attending Physician: Veda López, DO History of Present Illness Dear Dr. López: Thank you for the kind referral Mrs. Spence to pulmonary service. This is a 79-year-old female with a history of pneumonia been diagnosed recently by Dr. Hughes my colleague, underwent bronchoscopy for persistent infiltrate, the patient did have mucopurulent secretions in the lower lobes. The patient was treated with antibiotics at that time. The patient over the past 2 weeks, she has been having increasing orthopnea as well as dyspnea on exertion. She denies any chest pain per se. No increased swelling in her lower extremities. No nausea or vomiting no dysphagia no aspiration reported. No URI symptoms sore throat and she did not have GI symptoms or symptoms as well. No skin rash no dizziness or near syncopal episodes. The patient was admitted this time to the hospital, due to shortness of breath, and we were consulted due to persistent pneumonia on chest x-ray. In fact I reviewed the chest x-ray myself in addition to the CAT scan previously which showed development of pulmonary vascular congestion and bilateral pleural effusion. Allergies Allergy/AdvReac Type Severity Reaction Status Date / Time acetaminophen [From Tylenol] AdvReac Intermediate Nausea Verified 03/02/19 12:30 Penicillins AdvReac Unknown GI SYMPTOMS Verified 03/02/19 12:30 Home Medications Home Medications Medication Instructions Recorded Confirmed Type aspirin [Aspir-81] 81 mg PO DAILY 12/25/18 03/02/19 History lovastatin 40 mg PO DAILY 12/25/18 03/02/19 History metoprolol succinate 50 mg PO DAILY 12/25/18 03/02/19 History ranitidine HCl 150 mg PO HS 12/25/18 03/02/19 History Breo Ellipta 1 inh INHALATION DAILY 02/14/19 03/02/19 History Vortex Holding Chamber 02/14/19 03/02/19 History doxycycline hyclate 100 mg PO BID 03/02/19 03/02/19 History Patient History Medical History NSTEMI (non-ST elevated myocardial infarction) (Acute) Heart murmur (Chronic) High blood pressure (Chronic) High cholesterol (Chronic) Family History Other No pertinent family history Social History Preferred Language: Micronesian Communication Ability: Effective 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 Physical Exam Physical Exam: Vital signs are stable, O2 sat 95% on room air, diminished breath sounds at the right base, S1-S2 regular rate and rhythm, abdomen is benign, no edema. Oral mucosa is moist, neurologically she is intact. Results & Data Vital Signs (Past 12 Hours) Vital Signs Temp Pulse Resp BP BP Pulse Ox 03/03/19 07:31 95 H 18 95 03/03/19 07:00 36.7 C 93 H 18 148/82 H 92 03/03/19 04:14 92 H 16 94 03/03/19 00:17 37.0 C 96 H 20 124/71 92 03/02/19 23:07 89 16 97 Laboratory Results Labs were reviewed which showed no leukocytosis, stable hematocrit, earlier she did have leukocytosis. BMP is stable. Diagnostic Findings Chest x-ray showed pulmonary vascular congestion with bilateral pleural effusion, consistent with CHF. Previous work-up revealed CMV positive antibodies.
[2019-03-03] MEDS ORDERED: LEVOFLOXACIN/D5W 750 MG/150 ML BAG IV SCH (13:00)
--- NOTE | 2019-03-03 15:39 | Hospitalist Progress Note ---
Date of Service March 03, 2019 Assessment & Plan (1) Acute respiratory failure with hypoxia: The patient had 87% room air oxygen saturation on admission with air hunger. This has subsequently resolved. She is now 93% on room air Present on Admission?: Yes (2) Multifocal pneumonia: - Admit to med surg - Pt hypoxic at 87% on RA upon arrival to the ER, placed on supplemental O2 at 2L and sats improved. She does not wear home O2 at baseline. - Consult pulmonology for possible needs for repeat bronch. - Was recently completed by Dr. 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 - had been taking doxycline 100 mg Q12H x 10 days, and has 1 day left of the treatment. - Failure of outpatient tx with doxycycline, will continue on levaquin IV for now, received 1 dose in the ER. Allergic to pcns. Checking a MRSA swab. - Supportive care and pulmonary toilet: duonebs QID and Q2H prn, incentive spirometry, flutter - Sputum culture (3) CHF (congestive heart failure): This appears to be acute on chronic diastolic CHF. Lasix has been administered. We will monitor urine output. Appreciate infectious disease and pulmonary medicine consultation (4) NSTEMI (non-ST elevated myocardial infarction): - hx of such, stable (5) Aortic stenosis: - stable (6) Hypertension: - Cont antihypertensives as above. Stable (7) DVT prophylaxis: - teds, scds, lovenox sub q Subjective The patient is feeling much better. Pulmonary medicine consultation and infectious disease consultation entries noted. This may be acute exacerbation of diastolic CHF. Recent cardiac echo report reviewed. She has a normal ejection fraction with moderate aortic stenosis with moderately severe mitral stenosis and moderate MR. Severe left atrial enlargement. She has received 1 dose of oral Lasix. She denies any fever or productive cough. She currently is on Levaquin. Oxygen saturation is now 93% on room air. She was 87% on room air on admission. Review of Systems Review of Systems: All systems reviewed & are unremarkable except as noted in HPI & below Respiratory: + dyspnea; no sputum production Physical Exam Constitutional: no acute distress and not ill appearing Dwarfism Eyes: PERRL, conjunctivae normal, anicteric sclerae ENMT: external ear and nose normal, oropharynx normal Neck: trachea midline, no thyromegaly Respiratory: Bibasilar inspiratory rales. No rhonchi. No current wheezing. No dullness to percussion Cardiovascular: Grade 3/6 harsh systolic murmur consistent with aortic valve stenosis. Regular rhythm. Occasional premature beat Gastrointestinal (Abdomen): normal bowel sounds, soft, nontender, no hepatosplenomegaly Musculoskeletal: Endorses him Skin: no rashes, warm and dry Neurologic: CN's II-XI intact bilaterally; no focal motor deficits Results & Data Vital Signs (Past 12 Hours) Vital Signs Temp Pulse Resp BP Pulse Ox 03/03/19 15:07 87 18 93 03/03/19 15:00 36.7 C 94 H 18 105/70 96 03/03/19 11:16 92 H 18 95 03/03/19 07:31 95 H 18 95 03/03/19 07:00 36.7 C 93 H 18 148/82 H 92 03/03/19 04:14 92 H 16 94 Laboratory Results 03/03/19 06:31 03/03/19 06:31 (1) CHF (congestive heart failure) Heart failure chronicity: unspecified Heart failure type: unspecified Qualified Code(s): I50.9 - Heart failure, unspecified
[2019-03-03] MEDS ORDERED: ENOXAPARIN INJ 30 MG/0.3 ML SYR SQ SCH (21:00)
[2019-03-04] MEDS: ALBUT/IPRATROP 3MG/0.5MG NEB 3 ML VIAL NEB SCH ×2 (03:37→07:12)
[2019-03-04 07:08] LABS: Hematocrit (blood only) 33.8 % (37-47); Hemoglobin 11.1 g/dL (12.0-16.0); Mean Corpuscular Hgb Conc 32.8 g/dL (32-36); Mean Corpuscular Volume 93.1 fL (80-100); Mean Platelet Volume 9.4 fL (7.4-10.4); Platelet Count 275 K/uL (130-400); RDW Coefficient of Variation 14.4 % (11.5-14.5); RDW Standard Deviation 49.1 fL (36.4-46.3); Red Blood Count 3.63 M/uL (4.2-5.4); White Blood Count 6.22 K/uL (4.8-10.8)
[2019-03-04 07:35] LABS: BUN Creatinine Ratio 24.3 (10-20); Calcium 8.6 mg/dl (8.5-10.1); Creatinine Clr Calc Pharmacy 26.9 ml/min; Est GFR (Non-African American) 50.9; Potassium 4.2 mmol/L (3.5-5.1)
[2019-03-04] MEDS: guaiFENesin 600 MG TABCR PO SCH (08:12)
[2019-03-04] MEDS: ASPIRIN 81 MG ECTAB PO SCH (08:12)
[2019-03-04] MEDS: METOPROLOL SUCC 50MG EXT REL TAB PO SCH (08:12)
[2019-03-04] MEDS: LOVASTATIN 20 MG TAB PO SCH (08:12)
--- NOTE | 2019-03-04 11:01 | Discharge Summary ---
Date of Service March 04, 2019 Admission HPI Per Admitting Provider This is an 79 yo F with PMHx of CAD s/p NSTEMI Dec 2018, HTN, HLD, pulmonary HTN, moderate aortic stenosis, mitral stenosis, dwarfism, GERD, osteoporosis who presents with worsening shortness of breath. The patient was admitted in Dec for multifocal pneumonia and treated with ceftriaxone and levaquin and completed a course of steroids at that time. She then underwent bronchoscopy by Dr. Palomino on 02/14/19 for hemoptysis, and found moderate amount of milky white purulent secretions from all bibasilar segments of the right lower lobe. 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 She had been taking doxycline 100 mg Q12H x 10 days, and has 1 day left of the treatment. Pt notes that in the past 3 days specifically she in unable to participate in normal ADLs, including standing up to dry dishes, and becomes significantly short of breath within 10 steps. She denies fever, chills or sweats. Pt reports overall feeling of malaise and generalized fatigue. Admission Exam Per Admitting Provider Physical Exam: General: awake, alert, no apparent distress, + dwarfism Head: Normocephalic, atraumatic ENT: PERRL, EOMI, no pharyngeal exudate, mucous membranes moist Chest: On 2 L via NC with sats at 98%, + absent breath sounds bibasilarly, + crackles in LLL and RML, RUL, no wheezing of rales Cardiac: Regular rate and rhythm, no murmur, no JVD, normal peripheral pulses, good capillary refill Abdominal: NABS x 4 quadrants, soft, nontender to palpation, no rebound, guarding or tenderness Extremities: Normal inspection, no peripheral edema or erythema, calfs nontender to palpation Psych: Normal mood and affect Neuro: AAO x 3, strength intact bilaterally and related 5/5, no motor deficits, speech is clear, no peripheral sensory deficits Constitutional: WD/WN, vitals as above Eyes: normal visual nieto by confrontation and + anicteric sclerae Neck: normal visual inspection and trachea midline Respiratory: normal respiratory effort; no respiratory distress Auscultation: + crackles; no wheezes Cardiovascular: Rate/Rhythm: regular rate and regular rhythm Gastrointestinal (Abdomen): Inspection/Auscultation: abdomen not distended Percussion/Palpation: abdomen soft; abdomen nontender Musculoskeletal: Head/Neck/Chest: normocephalic and head atraumatic Neg for peripheral LE edema, + pedal pulses Skin: no rashes, warm and dry Neurologic: awake; not confused Speech / Cognition: normal speech Psychiatric: A+Ox3, euthymic affect Lymphatic: Exam as done by Veda López DO Principal Diagnosis Acute on chronic diastolic congestive heart failure, mild Acute hypoxemic respiratory failure Discharge Exam Constitutional no acute distress and not ill appearing Eyes PERRL, conjunctivae normal, anicteric sclerae ENMT external ear and nose normal, oropharynx normal Neck trachea midline, no thyromegaly Gastrointestinal (Abdomen) normal bowel sounds, soft, nontender, no hepatosplenomegaly Skin no rashes, warm and dry Neurologic CN's II-XI intact bilaterally; no focal motor deficits Discharge Data Allergies Allergy/AdvReac Type Severity Reaction Status Date / Time acetaminophen [From Tylenol] AdvReac Intermediate Nausea Verified 03/02/19 12:30 Penicillins AdvReac Unknown GI SYMPTOMS Verified 03/02/19 12:30 Consultations 03/02/19 13:30 ED Decision to Admit Stat 03/02/19 14:41 Consult Case Management - Discharge Planning Routine Consult Pulmonology Routine 03/03/19 08:10 Consult Infectious Diseases Routine 03/04/19 10:51 Consult [facility] tree killer Routine Hospital Course (1) Acute respiratory failure with hypoxia: The patient had 87% room air oxygen saturation on admission with air hunger. This has subsequently resolved. She is now 93% on room air (2) Multifocal pneumonia: Pneumonia has been ruled out (3) CHF (congestive heart failure): This appears to be acute on chronic diastolic CHF. She has improved with Lasix administration. She will be discharged with oral Lasix 40 mg daily. (4) NSTEMI (non-ST elevated myocardial infarction): - hx of such, stable. No evidence of regional wall motion abnormalities on cardiac echo. Normal ejection fraction. (5) Aortic stenosis: - stable (6) Hypertension: - Cont antihypertensives as above. Stable (7) DVT prophylaxis: - teds, scds, lovenox sub q Total Time Total Time Spent Total Time Spent (In Minutes): 40 minutes Total Time Includes: Examination of the Patient, Discharge Planning, Medication Reconciliation and Communication With Other Providers Discharge Plan Discharge Items Patient Disposition: Home - Self-Care Reason For Visit: ACUTE HYPOXIC RESPIRATORY FAILURE Discharge Diagnosis: Acute on chronic diastolic CHF, mild acute hypoxic respiratory failure Condition: Good Discharge Goals: Improve disease control, Improve function and Therapeutic intervention Activity: Resume your previous activity Non-emergency contact: Primary Care Provider Call non-emergency contact if: you have any medication questions Follow-up/Referrals: Joellen Kolb MD [Primary Care Provider] - Diet: Heart Healthy Addtl Provider Instructions: Take Lasix (furosemide)Once daily around noontime. Get a potassium level checked in 1 or 2 weeks Prescriptions: New furosemide [Lasix] 40 mg tablet 40 mg PO DAILY Qty: 30 RF: 0 Continued Vortex Holding Chamber Spacer RF: 0 Breo Ellipta 200-25 mcg/dose Blister With Device 1 inh INHALATION DAILY RF: 0 metoprolol succinate 50 mg Tablet Extended Release 24 Hr 50 mg PO DAILY RF: 0 ranitidine HCl 150 mg Tablet 150 mg PO HS RF: 0 aspirin [Aspir-81] 81 mg Tablet,Delayed Release (Dr/Ec) 81 mg PO DAILY RF: 0 lovastatin 40 mg Tablet 40 mg PO DAILY RF: 0 Discontinued doxycycline hyclate 100 mg Capsule 100 mg PO BID RF: 0 Stand-Alone Forms: [facility] Discharge Orders: Discharge Order (Routine); Ordered 03/04/19 Ordered By: Mati Luevano Admission Data Admit Date/Time: 03/02/19 14:40 Attending Provider: Mati Luevano Admit Provider: Veda López Primary Care Provider: Joellen Kolb Other Providers: Bayron Olson ; Veda López ; Yesi Christianson Service: Medical
--- NOTE | 2019-03-04 13:38 | Pulmonology Progress Note ---
Date of Service March 04, 2019 Assessment & Plan (1) Acute respiratory failure with hypoxia: Impression: 1. CHF exacerbation, most recent echo showed moderately severe MR and moderate aortic stenosis. 2. No evidence of pneumonia, procalcitonin is negative, and the findings on the chest x-ray consistent with CHF. 3. Right-sided pleural effusion greater than left-sided pleural effusion, almost certain related to decompensated CHF. 4. No evidence of aspergillus infection. 5. The presence CMV by PCR on bronchial fluid does not represent CMV infection. Plan: 1. Continue diuresis. 2. Discontinue antibiotics. 3. Reschedule PFT in 2 weeks, the patient has it scheduled for this coming week. 4. Patient can be discharged home. 5. Outpatient cardiology follow-up. Thank you, will follow as needed. Subjective No events overnight, the patient is following commands, answering questions, denies any symptoms of shortness of breath or cough, the patient was able to urinate approximately 1500 mL after receiving 20 mg of Lasix p.o. yesterday. Review of Systems Review of Systems: Asymptomatic this a.m., review of system including 10 sym ptoms were unremarkable. Physical Exam Physical Exam: Vital signs are stable, S1-S2 regular rate and rhythm, 93% on room air, systolic ejection murmur, diminished breath sounds at the right base. Abdomen is benign, no edema, neurologically she is intact. Results & Data Vital Signs (Past 12 Hours) Vital Signs Temp Pulse Resp BP BP Pulse Ox 03/04/19 12:50 36.5 C 112 H 18 124/71 133/81 93 03/04/19 07:14 112 H 18 93 03/04/19 07:00 36.5 C 104 H 18 133/81 94 03/04/19 03:37 93 H 16 97 Laboratory Results Labs showed stable CBC, BMP, Diagnostic Findings No new imaging.
--- OUTSIDE RECORDS SUMMARY | 2019-03-05 22:11 | External Medical Summary | Continuity of Care Document ---
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) Diarrhea (787.91) (R19.7) Osteoporosis (733.00) (M81.0) Impaired fasting glucose (790.21) (R73.01) Wheezing (786.07) (R06.2) Murmur (785.2) (R01.1) Acid reflux disease (530.81) (K21.9) Elevated serum creatinine (790.99) (R79.89) Acute bronchitis (466.0) (J20.9) Aortic stenosis (424.1) (I35.0) Dyslipidemia (272.4) (E78.5) Arrhythmia (427.9) (I49.9) Hypertension (401.9) (I10) Mild tricuspid insufficiency (397.0) (I07.1) Mitral insufficiency (424.0) (I34.0) Pulmonary hypertension (416.8) (I27.20) Dyspnea (786.09) (R06.00) Cough (786.2) (R05) Pneumonia (486) (J18.9) Dyspnea on exertion (786.09) (R06.09) Chest heaviness (786.59) (R07.89) CHF (congestive heart failure) (428.0) (I50.9) Allergies and Adverse Reactions Penicillins (Allergy) Reaction: Other Tylenol TABS (Allergy) Reaction: Nausea, Other Medications Breo Ellipta 200-25 MCG/INH Inhalation A erosol Powder Breath Activated; inhale 1 puff daily NENA Garcia Start: 17-Jan-2019 Quantity: 1 60 Inhaler Pack Refills: 3 Lisinopril-hydroCHLOROthiazide 20-12.5 MG Oral Tablet; TAKE 1 TABLET DAILY. Shira Kolb Start: 15-Dec-2018 Quantity: 90 Refills: 1 Vortex Valved Holding Chamber Device; TO USE WITH INHALER NENA Ortiz Start: 17-Jan-2019 Quantity: 1 Refills: 0 Aspir-Low 81 MG Oral Tablet Delayed Release; TAKE 1 TABLET D AILY. Start: 05-Dec-2018 Refills: 0 Metoprolol Succinate ER 50 MG Oral Table t Extended Release 24 Hour; TAKE 1 TABLET DAILY. Shira Kolb Start: 05-Dec-2018 Quantity: 30 Refills: 3 raNITIdine HCl - 150 MG Oral Tablet; TAKE 1 TABLET BY MOUTH AT BEDTIME. Shira Kolb Start: 05-Dec-2018 Quantity: 30 Refills: 4 Lovastatin 40 MG Oral Tablet; TAKE 1 TABLET DAILY D IRECTED. Shira Kolb Start: 20-Sep-2016 Quantity: 90 Refills: 2 Lasix 40 MG Oral Tablet; TAKE 1 TABLET DAILY DIRECTED. Start: 05-Mar-2019 Refills: 0 ProAir HFA 108 (90 Base) MCG/ACT Inhalat ion Aerosol Solution; INHALE 1 TO 2 PUFFS EVERY 4 TO 6 HOURS NEEDED FOR SHORTNESS OF BREATH NENA Garcia Start: 08-Sep-2018 Quantity: 1 8.5 GM Inhaler Refills: 0 Procedures Spirometry- Pre&Post, Lung Vol/CO (60mins) Date: 21-Feb-2019 Immunizations Immunizations not documented Family History Mother No pertinent family history (G26.89) (Z78.9) Status: Active Social History - Smoking Status Never smoker Plan of Treatment Planned Encounters Appointment; Favian Davis M.D. Start: 20-Apr-2019 10:00 R equest Planned Observations Planned Goals not documented Results Bronch Wash Cult + Gram Stain 14-Feb-2019 0:00 BRONCHAL WASH CULT & GRAM STAIN ORDERED PROCEDURE : Bronch Wash Culture/Gram Stain; Speciment : Bronch Wash,Left Lower Lobe GRAM STAIN RESULT\S\Gram Stain Result Moderate Polys No Organisms Seen Bronchoalveolar Lavage Culture : Aspergillus fumigatus NORMAL BROCK\S\Normal Brock Scant Normal Brock QUANTITY\S\Quantity Rare S\S\Sens No Sensitivities to Follow AFB Culture/Smear 14-Feb-2019 0:00 AFB CULTURE/SMEAR ORDERED PROCEDURE : AFB Culture/Smear; Speciment : Bronch Wash,Left Lower Lobe AFB Smear : SEE COMMENT AFB SMEAR RESULTS\S\AFB Smear Results No Acid-Fast Bacilli Seen Cytomegalovirus Quant. PCR Laboratory: [employer] Comments: [facility] ACCESSION NUMBER: [employer] [id number] 14-Feb-2019 0:00 CMV DNA PCR QUANT SOURCE Bronchial Wash CMV DNA QN REAL TIME Range: <200 IU/mL 2854 {IU/mL} (above high threshold) CMV DNA QUANTPCR 3.46 Range: <2.30 log IU/mL {log_IU/mL} (above high Comments: This t est was developed and its analytical performancecharacteristics have been determined by [employer], [place]. It hasnot been cleared or approved by the U.S. Food and Dr threshold) ugAdministration. Th is assay has been validated pursuantto the CLIA regulations and is used for clinicalpurposes.For additional information, please refer tohttp://education.Pinstripe/faq/CMVa ndEBVPCR(This link i s being provided for informational/educational purposes only.)THIS TEST WAS PERFORMED AT:[employer] [id number] ALVAREZ MD, PHD Aspergillus Antigen, BAL Laboratory: [employer] Comments: [employer] ACCESSION NUMBER: [employer] [id number] 14-Feb-2019 0:00 Aspergillus Ag Index, Range: <0.50 BAL 0.47 Aspergillus Ag, BAL Not Range: Not Dete cted Detected Comments: A negative result does not exclude invasiveaspergillosis. Follow-up testing may beindicated for high-risk patients.RESULT INTERPRETATION:An Index <0.50 is considered to be negative.An Index >=0.5 0 is considered to b e positive.A positive result for patients being treated withpiperacillin-tazobactam and other beta-lactamantibiotics such as amoxicillin-clavulanate may hang false positive due to red cross worker ss reactivity and sh ouldbe viewed in conjunction with all clinical findings.Positive results with this assay has also been reportedin patients infected with Penicillium marneffei andCryptococcus.THIS TE ST WAS PERFORMED AT: [facility] [place], [place] [address]URWXXZWMALICK ALVAREZ MD, PHD X-ray Chest, PA and Laboratory: [facility] Lateral Routine Diagnostic Imaging [address] [facility] 21-Feb-2019 9:59 CHEST 2 VIEWS ROUTINE [place], [place] [phone] XRay Report Patient: ELIZABETH HERRERA Admit Date: 02/21/19 MR#: [id number] Address1: [address] [place] [address] Acct ID:[id number] Address2: Date: 1940 [facility] Zip: [place] [address] Age: 79 Location: [facility] Sex: F Room/Bed: Att Phy: Veda Smith PA-C Diagnosis: R05 Jamilah Phy: Joellen Kolb MD Service Date : 02/21/19 Fam Phy: Interpreting Phy: Juan Miguel De Luna MD Admit Phy: Ordering Phy: Veda Smith PA-C cc: XR chest 2V routine CLINICAL HISTORY: Cough COMPARISON STUDY: December 25, 2018 FINDINGS: The heart remains enlarged. Since the prior study, the patient developed a right basilar consolidation. There are small pleural effusions right greater than left. IMPRESSION: 1. Stable cardiomegaly 2. Interval development of right basilar airspace opacity suspicious for a pneumonia. Clinical and radiographic follow-up is recommended 3. Small bilateral pleural effusions right greater than left. Electronically signed by: Juan Miguel De Luna M.D. 02/21/2019 10:00 AM Dictated: 02/21/1961 Transcribed: 02/21/1961 Quantiferon TB Gold Laboratory: [employer] Comments: [employer] ACCE SSION NUMBER: DIAGNOSTICS, [employer] [id number] 15-Feb-2019 14:10 Quantiferon TB Gold Plus Range: NEGATIV E NEGATIVE Comments: M.TUBERCUL OSIS INFECTION NOT LIKELYThe Nil tube value reflects the background interferon gammaresponse of the patient's blood sample. This value has beensubtracted from the patient's displayed TB and Mi togenresults.Lower t gomez expected results with the Miltogen tube preventfalse- negative Quantiferon readings by detecting a patientwith a potential immune suppressive condition and/orsuboptimal pre-analyt ical specimen handli ng.The TB1 Antigen tube is coated with the M.tuberculosis- specific antigens designed to elicit responsesfrom TB antigen primed CD4+ helper T-lymphocytes.The TB2 Antigen tube is coate d with the M.tubercu losis-specific antigens designed to elicit responsesfrom TB antigen primed CD4+ helper and CD8+ cytotoxicT-lymphocytes.For additional information, please refer to:http://education.OROS/f aq/204 (This link isbeing provided for information/educational purposes only.)In healthy persons who have a low likelihood both ofM.tuberculosis infection and of progession to active tuberculosis if infe cted, a single positive QFT resultshould not be taken as reliable evidence of M.tuberculosisinfection. Repeat testing, with either the initial test ora different test, may be conside red on a case-by-andrea e basis.The CDC advises that caution is warranted when using theassay in children aged <5 years (KJQT8381;59(RR-05):1-25). Quantiferon NIL 0.01 Range: IU/ML {IU/ML} Quantiferon Mitogen-NIL Range: IU/ML 7.44 {IU/ML} Quantiferon TB1-NIL 0.00 Range: IU/ML {IU/ML} Quantiferon TB2-NIL 0.00 Range: IU/ML {IU/ML} Comments: THIS TEST WAS PERFORMED AT:[facility] [address] [place] [address]PNETQVJOAQUÍN MI MD Aspergillus Antibodies, Laboratory: [facility] Comments: [employer] ACCESSION NUMBER: [place]. [employer] [id number] 15-Feb-2019 14:10 ASPERGILLUS NIGER Range: Negative Negative ASPERGILLUS FUMIGATUS Range: Negative Negative Comments: Interpreti ve Criteria: Negative: Antibody not detected Positive: Antibody detectedA positive result is represented by 1 or moreprecipitin bands, and may indicate fungus ball,allergic bronchopulmon deyanira aspergillosis (A BA) orinvasive aspergillosis. Generally, the appearanceof 3-4 bands indicates either fungus ball or GAYATHRI. ASPERGILLUS FLAVUS Range: Negative Negative Comments: THIS TEST WAS PERFORMED AT:[facility] [place], [place] [address]DPIARRBMALICK ALVAREZ MD, PHD FUNGITELL (1-3)-B-D-GLUCAN Laboratory: [employer] Comments: [facility] ACCESSION NUMBER: [employer] [id number] 15-Feb-2019 14:10 FUNGITELL Range: pg/mL (1-3)-B-D-GLUCAN <31 pg/mL FUNGITELL INT NEGATIVE Comments: REFEREN CE RANGE: <60 pg/mLThis assay is f or the presumptive diagnosi s offungal infections and shoul d be used inconjunction with o ther diagnostic procedures.(1->3)-be ta-D-glucan values of <60 pg/mL areconsidered negative and indicat e the presumptiveabsence o f fungal infection. Glucan va lues of >=60but <79 pg/mL are consid ered indeterminate, andgl ucan values of >=80 pg/mL are consi deredpositive and indicate the pre sumptive presence ofa fungal infection. This assay may not detect certain fungal species that do not produce orproduce low levels of (1->3)-ygqw-Q-wrzotf including: Cryptococcus, Absidi a, Mucor,Rhizopus, and the yeast phase of Blastomycesdermat itidis.Test Performed at:[facility] [address] [place], [place] [address] Martir Boston MD. Direct orTHIS TEST WAS PERFORMED AT:[facility] D [facility] INFECT[facility]OUS [id number] [address] [place], [place] [address]YeureTrista Boston MD Aspergillus Antigen, Serum Laboratory: [employer] Comments: [facility] ACCESSION NUMBER: [employer] [id number] 15-Feb-2019 14:10 Aspergillus Ag Index Range: <0.50 0.07 Aspergillus Antigen, Range: Not Detecte d Serum Not Detected Comments: A negative result does not exclude invasiveaspergillosis. Follow-up testing may beindicated for high-risk patients.RESULT INTERPRETATION:An Index <0.50 is considered to be negative.An Index >=0.5 0 is considered to b e positive.A positive result for patients being treated withpiperacillin-tazobactam and other beta-lactamantibiotics such as amoxicillin-clavulanate may hang false positive due to red cross worker ss reactivity and sh ouldbe viewed in conjunction with all clinical findings.Positive results with this assay has also been reportedin patients infected with Penicillium marneffei andCryptococcus.THIS TE ST WAS PERFORMED AT: [facility] [address] [id number] ALVAREZ MD, PHD Hypersensitivity Laboratory: [employer] Comments: [employer] ACCE SSION NUMBER: Pneumonitis [employer] [id number] 15-Feb-2019 14:10 Saccharomnospoa Rec Not Range: Not dete cted detected S VIRIDIS AB Not Range: Not detected detected T CANDIDUS AB Not Range: Not detected detected T SACCHARI AB Not Range: Not detected detected T VULGARIS AB Not Range: Not detected detected A FUMIGATUS AB Not Range: Not detected detected A PULLULANS IgG < 2.0 Range: < 13.6 mcg /mL {mcg/mL} ALTERNARIA TENUIS IgG < Range: < 13.6 m cg/mL 2.0 {mcg/mL} Cladosporium Herb IGG < Range: < 14.7 m cg/mL 2.0 {mcg/mL} Penicillium Notatum IGG Range: < 17.5 m cg/mL 3.8 {mcg/mL} Phoma SPP IGG < 2.0 Range: < 6.6 mcg/mL {mcg/mL} Trichoderma Viride IGG < Range: < 13.4 mcg/mL 2.0 {mcg/mL} Comments: A. pullula ns IgG, A. alternata (m6) IgG, Cladosporium herbarumIgG, Penicillium notatum IgG, Phoma spp IgG and Trichodermaviride IgG: This test(s) was performed using a kit that has not been clearedor ap proved by the FDA. T he analytical performancecharacteristics of this test have been determined by [employer], [place], [place]. This test should notbe used for diagnosis without conf irmation by other mt dicallyestablished means.THIS TEST WAS PERFORMED AT:[facility] at [address] [id number] SHEPARD MD FACP X-Ray Chest 1 View Laboratory: [facility] Portable (Pending) Diagnostic Imaging [address] [place] ELPIDIO 02-Mar-2019 12:03 X-Ray Chest 1 VW [facility] [phone] XRay Report Patient: ELIZABETH HERRERA Admit Date: 03/02/19 MR#: [id number] Address1: [address] Acct ID:[id number] Address2: Date: 1940 [facility] [address] Age: 79 Location: ED Sex: F Room/Bed: Att Phy: Diagnosis: SOB Jamilah Phy: Joellen Kolb MD Service Date : 03/02/19 Fam Phy: Interpreting Phy: Valeriy viramontes MD Admit Phy: Ordering Phy: Raciel Foote, cc: XR chest 1V portable HISTORY: Short of breath. COMPARISON: Chest 02/21/2019. FINDINGS: The heart remains enlarged. Small bilateral pleural effusions, mild interstitial pulmonary edema, and bibasilar densities have progressed. No pneumothorax. Mitral calcifications areagain noted. IMPRESSION: Interval progression of the mild pulmonary edema, small bilateral pleural effusions, and bibasilar opacities. Electronically signed by: Valeriy Clarke M.D. 03/02/2019 12:04 PM Dictated: 03/02/19 1203 Transcribed: 03/02/19 1203 Vital Signs 02-Mar-2019 9:26 Systolic 150 mm[Hg] Diastolic 84 mm[Hg] Respiration 18 /min O2 Saturation 90 % Heart Rate 83 /min 21-Feb-2019 8:25 Systolic 124 mm[Hg] Comments: Location: LUE; Position: Sitting Diastolic 76 mm[Hg] Comments: Location: LUE; Position: Sitting Respiration 16 /min O2 Saturation 95 % Comments: Source: RA Heart Rate 86 /min BSA Calculated 1.39 m2 BMI Calculated 28.81 kg/m2 Weight 119.5 lb Temperature 97.5 f Height 54 in Encounters Appointment; Carlie Granger CRNP 02-Mar-2019 9:30 Encounter Diagnosis: Problem not documented Appointment; Veda Garcia PA-C 21-Feb-2019 7:30 Encounter Diagnosis: Problem not documented Appointment; Favian Hughes M.D. 14-Feb-2019 10:00 Encounter Diagnosis: Problem not documented Appointment; Veda Garcia PA-C 29-Jan-2019 11:15 Encounter Diagnosis: Problem not documented Appointment; Favian Davis M.D. 23-Jan-2019 10:30 Encounter Diagnosis: Problem not documented Appointment; Veda Garcia PA-C 17-Jan-2019 8:30 Encounter Diagnosis: Problem not documented Appointment; Joellen Kolb M.D. 01-Jan-2019 10:00 Encounter Diagnosis: Problem not documented Appointment; Joellen Kolb M.D. 15-Dec-2018 12:00 Encounter Diagnosis: Problem not documented Appointment; Joellen Kobl M.D. 05-Dec-2018 13:00 Encounter Diagnosis: Problem not documented Appointment; Favian Davis M.D. 26-Sep-2018 14:15 Encounter Diagnosis: Problem not documented Appointment; Stress, Echocardiogram 1 18-Sep-2018 13:00 Encounter Diagnosis: Problem not documented Appointment; Mechelle Lopez PA-C 11-Sep-2018 14:45 Encounter Diagnosis: Problem not documented Appointment; Carlie Granger CRNP 08-Sep-2018 15:00 Encounter Diagnosis: Problem not documented Appointment; Omayra Bonilla CRNP 19-Jul-2018 9:30 Encounter Diagnosis: Problem not documented Appointment; Omayra Bonilla CRNP 23-Feb-2018 11:30 Encounter Diagnosis: Problem not documented Appointment; Echo/Stress, Echo/Stress 27-Jun-2017 13:45 Encounter Diagnosis: Problem not documented Appointment; Omayra Bonilla CRNP 07-Jun-2017 15:30 Encounter Diagnosis: Problem not documented Appointment; Omayra Bonilla CRNP 17-May-2017 13:00 Encounter Diagnosis: Problem not documented Appointment; Favian Davis M.D. 20-Apr-2019 10:00 Encounter Diagnosis: Problem not documented
[2019-03-06 18:06] LABS: CMV DNA Qnt Real Time PCR <200 IU/mL (<200); CMV DNA Quant PCR <2.30 log IU/mL (<2.30); CMV IgG Antibody >10.00 U/ML; CMV IgM Antibody <30.00 Au/mL
== END 2019-03-04 15:00 | disposition home or self-care (01) | DRG 189 ==
LOC: ED 11:19 → 4W 14:40 → SUATTDRO 14:40 → 4W 16:16

== ENCOUNTER 2019-10-15 02:18 | Inpatient (IN) ==
[2019-10-15] MEDS ORDERED: ALBUT/IPRATROP 3MG/0.5MG NEB 3 ML VIAL ONE (02:23)
[2019-10-15] MEDS ORDERED: ALBUT/IPRATROP 3MG/0.5MG NEB 3 ML VIAL INH STA (02:36)
[2019-10-15 02:54] LABS: Basophils # (auto) 0.02 K/uL (0-0.2); Basophils % (auto) 0.2 %; Hematocrit (blood only) 35.4 % (37-47); Hemoglobin 11.7 g/dL (12.0-16.0); Immature Granulocytes # (auto) 0.02 K/uL (0.00-0.02); Immature Granulocytes % (auto) 0.2 %; Lymphocytes # (auto) 0.47 K/uL (1.2-3.4); Lymphocytes % (auto) 4.5 %; Mean Corpuscular Hemoglobin 31.6 pg (25-34); Mean Corpuscular Hgb Conc 33.1 g/dL (32-36); Mean Corpuscular Volume 95.7 fL (80-100); Monocytes # (auto) 0.45 K/uL (0.11-0.59); Monocytes % (auto) 4.3 %; Neutrophils # (auto) 9.49 K/uL (1.4-6.5); Neutrophils % (auto) 90.8 %; Platelet Count 232 K/uL (130-400); RDW Coefficient of Variation 12.7 % (11.5-14.5); RDW Standard Deviation 44.3 fL (36.4-46.3); White Blood Count 10.45 K/uL (4.8-10.8)
[2019-10-15 03:04] LABS: Partial Thromboplastin Ratio 0.8; Prothrombin Time 9.9 Seconds (9.0-12.0)
[2019-10-15 03:16] LABS: Influenza A virus by PCR Neg for Influ A (Neg); Influenza B virus by PCR Neg for Influ B (Neg)
[2019-10-15 03:20] LABS: Albumin Level 3.4 gm/dl (3.4-5.0); BUN Creatinine Ratio 23.5 (10-20); Calcium 8.3 mg/dl (8.5-10.1); Creatinine Clr Calc Pharmacy 12.7 ml/min; Est GFR (African American) 39.7; Est GFR (Non-African American) 34.3; Magnesium 2.2 mg/dl (1.8-2.4); Potassium 4.3 mmol/L (3.5-5.1)
[2019-10-15 03:25] LABS: Albumin Globulin Ratio 0.9 (0.9-2); Bilirubin,Total 0.5 mg/dl (0.2-1); Total Protein 7.4 gm/dl (6.4-8.2); Troponin I 0.019 ng/ml (0-0.045)
[2019-10-15 03:27] LABS: pH VBG 7.34 (7.36-7.41)
[2019-10-15] MEDS ORDERED: methylPREDNISolone 125 MG/2 ML VIAL IV STA (03:36)
[2019-10-15] MEDS ORDERED: FUROSEMIDE 40 MG/4 ML VIAL IV STA (03:36)
[2019-10-15] MEDS ORDERED: levoFLOXacin 750 MG TAB PO ONE (03:53)
[2019-10-15] MEDS ORDERED: levoFLOXacin 250 MG TABLET PO ONE (03:59)
[2019-10-15 04:40] LABS: Appearance Urine Cloudy (Clear); Bacteria Urine Automated Negative (Negative); Bilirubin Urine Negative (Negative); Blood Urine Negative (Negative); Color Urine Yellow; Glucose Urine UA Negative (Negative); Ketones Urine Negative (Negative); Leukocyte Esterase Urine Negative (Negative); Nitrite Urine Negative (Negative); Protein Urine Negative (Negative); Specific Gravity Urine 1.014 (1.000-1.030); Urobilinogen Urine Negative (Negative); pH Urine 5.5 (4.5-7.5)
[2019-10-15] MEDS ORDERED: ALBUT/IPRATROP 3MG/0.5MG NEB 3 ML VIAL NEB PRN (04:52)
--- NOTE | 2019-10-15 05:39 | History & Physical Report ---
Date of Service October 15, 2019 Assessment & Plan (1) Acute respiratory failure with hypoxia: Admit tele improved with 2L nc She was given 20mgIV Lasix in the ED. I continued her usual 40mg po daily, but I do not feel that CHF is the major issue. BNP was 2844, but previously 7629. I will check a CT scan chest for further delineation. (2) Pneumonia: the CXR appears to have right pneumonia IV Levaquin given in the ED, I continued. Pulmonology consult DVT prophylaxis = SCDs and sub-q heparin (3) Bronchospasm: Solu-medrol 40mg IV Q 6 hours Duonebs prn Continue Breo Ellipta (4) GERD (gastroesophageal reflux disease): Pepcid in place of ranitidine (5) Hypertension: BPs are in the lower range of normal I will hold lisinopril for now. (6) Aortic stenosis: Systolic murmur is not new. Last echo in 12/26 showed EF 60-65% History of Present Illness 79 y/o female presented to the ED with a non-productive cough that started 24 hours prior and worsening SOB with exertion. Patient was found to have POX RA of 88% which improved to 96% with 2L nc. She declines having a fever, but does have a mild temp here to 37.6. She was given Levaquin, Lasix 20mg, and solumedrol in the ED. The patient reports feeling some better. No Chest pain, N/V/D, headache, or syncope. Primary Care Provider: Joellen Kolb MD Allergies Allergy/AdvReac Type Severity Reaction Status Date / Time acetaminophen [From Tylenol] AdvReac Intermediate Nausea Verified 10/15/19 02:35 Penicillins AdvReac Unknown GI SYMPTOMS Verified 10/15/19 02:35 Home Medications Home Medications Medication Instructions Recorded Confirmed Type aspirin [Aspir-81] 81 mg PO DAILY 12/25/18 10/15/19 History Breo Ellipta 1 inh INHALATION DAILY 02/14/19 10/15/19 History Vortex Holding Chamber 02/14/19 07/23/19 History furosemide [Lasix] 40 mg PO DAILY #30 tab 03/04/19 10/15/19 Rx ranitidine HCl 150 mg tablet 150 mg PO HS #30 tab 05/03/19 10/15/19 Rx albuterol sulfate 90 mcg/actuation 1 - 2 puffs INHALATION .COMPLEX 08/17/19 10/15/19 History aerosol inhaler PRN gm lisinopril 20 mg tablet 20 mg PO DAILY #90 tab 09/24/19 10/15/19 Rx lovastatin 40 mg tablet 40 mg PO DAILY #90 tab 09/24/19 10/15/19 Rx metoprolol succinate 50 mg 50 mg PO DAILY #90 tab 09/24/19 10/15/19 Rx tablet,extended release 24 hr Past Med/Surg History Medical History Acute respiratory failure with hypoxia Aortic stenosis Aspergillosis CHF (congestive heart failure) (Acute) CMV (cytomegalovirus) infection Heart murmur (Chronic) High blood pressure (Chronic) High cholesterol (Chronic) Hypertension Multifocal pneumonia NSTEMI (non-ST elevated myocardial infarction) NSTEMI (non-ST elevated myocardial infarction) (Acute) Pneumonia (Acute) Sepsis (Acute) V-tach Family History Uncle Myocardial infarction Other No pertinent family history Social History Preferred Language: Guyanese Communication Ability: Effective Carbonating Stone Cleaner Required: No Beliefs That Will Affect Care: None Current Living Situation: Family Feels Safe at Home: Yes Smoking Status: Never smoker Second Hand Exposure: No ; Hx Alcohol Use: No Hx Substance Use: No Review of Systems Review of Systems: All systems reviewed & are unremarkable except as noted in HPI & below Physical Exam Physical Exam: General- adult female, NAD Head- atraumatic Eyes- PERRL, EOMI, anicteric ENT- oropharynx clear Neck- supple, no JVD, no adenopathy, no thyromegaly. Lungs- + exp wheezes b/l with diffuse rhonchi, I do not appreciate any crackles. Heart- regular rhythm, no gallop, no rub appreciated, III/ holosystolic murmur. Abdomen- normal bowel sounds, soft, nontender. Extremities- no pretibial edema, no calf tenderness; peripheral pulses intact Neuro- alert, oriented x 3; prime broker II-XII grossly intact, Non-focal. Skin- warm & dry Results & Data Vital Signs (Past 12 Hours) Vital Signs Temp Pulse Pulse Resp BP Pulse Ox 10/15/19 05:00 121 H 22 110/59 L 96 10/15/19 04:27 117 H 27 H 104/50 L 96 10/15/19 04:07 116 H 25 H 97/50 L 96 10/15/19 02:45 116 H 24 94 10/15/19 02:41 88 L 10/15/19 02:40 115 H 25 H 93 10/15/19 02:25 37.6 C H 140 H 30 H 139/78 90 Laboratory Results Laboratory Results WBC 10.45 K/uL (4.8-10.8) 10/15/19 02:36 RBC 3.70 M/uL (4.2-5.4) L 10/15/19 02:36 Hgb 11.7 g/dL (12.0-16.0) L 10/15/19 02:36 Hct 35.4 % (37-47) L 10/15/19 02:36 MCV 95.7 fL (80-100) 10/15/19 02:36 MCH 31.6 pg (25-34) 10/15/19 02:36 MCHC 33.1 g/dL (32-36) 10/15/19 02:36 RDW Std Deviation 44.3 fL (36.4-46.3) 10/15/19 02:36 RDW Coeff of [place]anna 12.7 % (11.5-14.5) 10/15/19 02:36 Plt Count 232 K/uL (130-400) 10/15/19 02:36 MPV 10.0 fL (7.4-10.4) 10/15/19 02:36 Immature Gran % (Auto) 0.2 % 10/15/19 02:36 Neut % (Auto) 90.8 % 10/15/19 02:36 Lymph % (Auto) 4.5 % 10/15/19 02:36 Walker % (Auto) 4.3 % 10/15/19 02:36 Eos % (Auto) 0.0 % 10/15/19 02:36 Baso % (Auto) 0.2 % 10/15/19 02:36 Immature Gran # (Auto) 0.02 K/uL (0.00-0.02) 10/15/19 02:36 Neut # (Auto) 9.49 K/uL (1.4-6.5) H 10/15/19 02:36 Lymph # (Auto) 0.47 K/uL (1.2-3.4) L 10/15/19 02:36 Walker # (Auto) 0.45 K/uL (0.11-0.59) 10/15/19 02:36 Eos # (Auto) 0.00 K/uL (0-0.5) 10/15/19 02:36 Baso # (Auto) 0.02 K/uL (0-0.2) 10/15/19 02:36 PT 9.9 Seconds (9.0-12.0) 10/15/19 02:36 INR 1.0 (0.9-1.1) 10/15/19 02:36 APTT 23.0 Seconds (21.0-31.0) 10/15/19 02:36 PTT Ratio 0.8 10/15/19 02:36 VBG pH 7.34 (7.36-7.41) L 10/15/19 02:58 VBG pCO2 47 mmHg (38-50) 10/15/19 02:58 VBG pO2 34 mmHg 10/15/19 02:58 VBG HCO3 25 mmol/L 10/15/19 02:58 VBG O2 Saturation 64.0 % 10/15/19 02:58 VBG Base Excess -1.0 mEq/L 10/15/19 02:58 Barometric Pressure 734.4 mm/Hg 10/15/19 02:58 Sodium 139 mmol/L (136-145) 10/15/19 02:36 Potassium 4.3 mmol/L (3.5-5.1) 10/15/19 02:36 Chloride 104 mmol/L (98-107) 10/15/19 02:36 Carbon Dioxide 26 mmol/L (21-32) 10/15/19 02:36 Anion Gap 9.0 (3-11) 10/15/19 02:36 BUN 34 mg/dl (7-18) H 10/15/19 02:36 Creatinine 1.43 mg/dl (0.6-1.2) H 10/15/19 02:36 Est Cr Clr Drug Dosing 12.7 ml/min 10/15/19 02:36 Est GFR ( Amer) 39.7 10/15/19 02:36 Est GFR (Non-Af Amer) 34.3 10/15/19 02:36 BUN/Creatinine Ratio 23.5 (10-20) H 10/15/19 02:36 Glucose 161 mg/dl (70-99) H 10/15/19 02:36 Lactate 3.7 mmol/L (0.4-2.0) H* 10/15/19 02:58 Calcium 8.3 mg/dl (8.5-10.1) L 10/15/19 02:36 Magnesium 2.2 mg/dl (1.8-2.4) 10/15/19 02:36 Total Bilirubin 0.5 mg/dl (0.2-1) 10/15/19 02:36 AST 18 U/L (15-37) 10/15/19 02:36 ALT 15 U/L (12-78) 10/15/19 02:36 Alkaline Phosphatase 62 U/L (45-117) 10/15/19 02:36 Troponin I 0.019 ng/ml (0-0.045) 10/15/19 02:36 NT-Pro-B Natriuret Pep 2844 pg/ml (0-1800) H 10/15/19 02:36 Total Protein 7.4 gm/dl (6.4-8.2) 10/15/19 02:36 Albumin 3.4 gm/dl (3.4-5.0) 10/15/19 02:36 Globulin 4.0 gm/dl (2.5-4.0) 10/15/19 02:36 Albumin/Globulin Ratio 0.9 (0.9-2) 10/15/19 02:36 Urine Color Yellow 10/15/19 04:30 Urine Appearance Cloudy (Clear) A 10/15/19 04:30 Urine pH 5.5 (4.5-7.5) 10/15/19 04:30 Ur Specific Maynard 1.014 (1.000-1.030) 10/15/19 04:30 Urine Protein Negative (Negative) 10/15/19 04:30 Urine Glucose (UA) Negative (Negative) 10/15/19 04:30 Urine Ketones Negative (Negative) 10/15/19 04:30 Urine Blood Negative (Negative) 10/15/19 04:30 Urine Nitrite Negative (Negative) 10/15/19 04:30 Urine Bilirubin Negative (Negative) 10/15/19 04:30 Urine Urobilinogen Negative (Negative) 10/15/19 04:30 Ur Leukocyte Esterase Negative (Negative) 10/15/19 04:30 Urine WBC (Auto) 1-5 /hpf (0-5) 10/15/19 04:30 Urine RBC (Auto) 5-10 /hpf (0-4) H 10/15/19 04:30 U Hyaline Cast (Auto) 1-5 /lpf (0-5) 10/15/19 04:30 U Epithel Cells (Auto) 10-20 /lpf (0-5) H 10/15/19 04:30 Urine Bacteria (Auto) Negative (Negative) 10/15/19 04:30 Influenza Type A (PCR) Neg for Influ A (Neg) 10/15/19 02:40 Influenza Type B (PCR) Neg for Influ B (Neg) 10/15/19 02:40 Code Status & VTE Plan VTE Prophylaxis Plan VTE Prophylaxis will be ordered: Yes PG Care Time/CCT Total # of Minutes Spent Total Time Spent: 55 Total Time Spent with Patient: Total time spent is greater than 50% in coordination of care (as documented) at patient's floor/unit and/or counseling patient: (1) Pneumonia Laterality: bilateral Lung location: lower lobe of lung Pneumonia type: due to unspecified organism Qualified Code(s): J18.1 - Lobar pneumonia, unspecified organism
--- NOTE | 2019-10-15 06:16 | Emergency Department Note ---
Entered by Silvia Luna acting as a scribe for Edgar Dallas M.D. History of Present Illness General Chief complaint: Shortness of Breath/Dyspnea Stated complaint: breathing difficulty Time Seen by Provider: 10/15/19 02:25 Source: patient and family Mode of arrival: EMS History of Present Illness Onset (ago): hour(s) (just prior to arrival) Location: chest Severity: similar to prior episodes Pain Consistency: + other (worsening ) Quality: + other (shortness of breath) Relieved By: + medication (breathing treatment) Associated symptoms: + cough (productive with clear phlegm; several times with blood) and + nausea/vomiting (positive vomiting twice; negative current nausea); no chest pain Treatments prior to arrival: other (breathing treatment) The patient is a 79 year old female with PMHx of CHF, NSTEMI, HTN, aortic stenosis, V-Tach, Sepsis, and acute respiratory failure who presents to the Emergency Room with complaints of worsening shortness of breath that began just prior to arrival. The patient states that she had a productive cough with clear phlegm today, but states that this became worse this evening. The patient's family states that the patient coughed up blood several times. The patient's family states that the patient vomited twice, but denies nausea currently. The patient denies chest pain. The patient denies being on oxygen at home. She states that she has inhalers, but states that she did not use them this evening. The patient reports that she got a breathing treatment by EMS that she states relieved her symptoms. The patient states that this is similar to a prior episode in February, 8 months ago. The patient denies any recent antibiotic use. Home Medications Home Medications Medication Instructions Recorded Confirmed Type aspirin [Aspir-81] 81 mg PO DAILY 12/25/18 10/15/19 History Breo Ellipta 1 inh INHALATION DAILY 02/14/19 10/15/19 History Vortex Holding Chamber 02/14/19 07/23/19 History furosemide [Lasix] 40 mg PO DAILY #30 tab 03/04/19 10/15/19 Rx ranitidine HCl 150 mg tablet 150 mg PO HS #30 tab 05/03/19 10/15/19 Rx albuterol sulfate 90 mcg/actuation 1 - 2 puffs INHALATION .COMPLEX 08/17/19 10/15/19 History aerosol inhaler PRN gm lisinopril 20 mg tablet 20 mg PO DAILY #90 tab 09/24/19 10/15/19 Rx lovastatin 40 mg tablet 40 mg PO DAILY #90 tab 09/24/19 10/15/19 Rx metoprolol succinate 50 mg 50 mg PO DAILY #90 tab 09/24/19 10/15/19 Rx tablet,extended release 24 hr Allergies Allergy/AdvReac Type Severity Reaction Status Date / Time acetaminophen [From Tylenol] AdvReac Intermediate Nausea Verified 10/15/19 02:35 Penicillins AdvReac Unknown GI SYMPTOMS Verified 10/15/19 02:35 Past Med/Surg History Medical History Acute respiratory failure with hypoxia Aortic stenosis Aspergillosis CHF (congestive heart failure) (Acute) CMV (cytomegalovirus) infection Heart murmur (Chronic) High blood pressure (Chronic) High cholesterol (Chronic) Hypertension Multifocal pneumonia NSTEMI (non-ST elevated myocardial infarction) NSTEMI (non-ST elevated myocardial infarction) (Acute) Pneumonia (Acute) Sepsis (Acute) V-tach Family History Uncle Myocardial infarction Other No pertinent family history Social History Preferred Language: Urdu Communication Ability: Effective 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 and A total of 10 systems reviewed and were otherwise negative Physical Exam Vital Signs Vital Signs - 24 hr 10/15/19 02:25 10/15/19 02:40 10/15/19 02:41 Temperature 37.6 C H Temperature Source Oral Pulse Rate 140 H 115 H Pulse Rate [Right Finger] Pulse Rate from SpO2 Sensor 140 H Pulse Rhythm Regular Respiratory Rate 30 H 25 H Respiratory Effort / Characteristics Short of Breath Blood Pressure 139/78 Blood Pressure Mean 93 Pulse Oximetry 90 93 88 L Oxygen Delivery Method Room Air Nasal Cannula Nasal Cannula Oxygen Flow Rate 2 0 Sepsis Recent Fever Within 48 Hours No Sepsis Action Taken by Nursing No Action Required Oxygen Flow Rate - Titration 2 Pulse Oximetry Post Tiitration 94 10/15/19 02:45 10/15/19 04:07 10/15/19 04:27 Temperature Temperature Source Pulse Rate 116 H 117 H Pulse Rate [Right Finger] 116 H Pulse Rate from SpO2 Sensor 117 H 119 H Pulse Rhythm Respiratory Rate 24 25 H 27 H Respiratory Effort / Characteristics Non-Labored Blood Pressure 97/50 L 104/50 L Blood Pressure Mean 65 72 Pulse Oximetry 94 96 96 Oxygen Delivery Method Nasal Cannula Oxygen Flow Rate 2.5 Sepsis Recent Fever Within 48 Hours Sepsis Action Taken by Nursing Oxygen Flow Rate - Titration Pulse Oximetry Post Tiitration 10/15/19 05:00 10/15/19 06:04 Temperature 37.6 C H Temperature Source Pulse Rate 121 H 105 H Pulse Rate [Right Finger] Pulse Rate from SpO2 Sensor 121 H Pulse Rhythm Respiratory Rate 22 26 H Respiratory Effort / Characteristics Blood Pressure 110/59 L 95/62 L Blood Pressure Mean 75 73 Pulse Oximetry 96 97 Oxygen Delivery Method Nasal Cannula Nasal Cannula Oxygen Flow Rate 2 2 Sepsis Recent Fever Within 48 Hours Sepsis Action Taken by Nursing Oxygen Flow Rate - Titration Pulse Oximetry Post Tiitration GENERAL: Awake, alert, with audible wheezing in room HENT: Normocephalic, atraumatic. EYES: Normal conjunctiva. Sclera non-icteric. NECK: Supple. No nuchal rigidity. trachea midline. RESPIRATORY: Increased work of breathing. Right greater than left crackles. Audible wheezing. CARDIAC: Tachycardic rate. Normal rhythm. Extremities warm and well perfused. GI: Soft, non-distended. No tenderness to palpation. No rebound or guarding. MUSCULOSKELETAL: Atraumatic. 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 LOWER EXTREMITIES: Calves are equal size bilaterally and non-tender. Trace lower extremity pedal edema. NEURO: Normal sensorium. No sensory or motor deficits noted. No facial droop. SKIN: Warm and dry. No jaundice noted. Course Course 0230: Past medical records reviewed. The patient was evaluated in room B2. A complete history and physical exam was performed. 0335: I checked on and updated the patient on all results. 0425: I discussed the case with Dr. Artis-[facility] Hospitalist who accepts the patient for further evaluation. Administered Medications Discontinued Medications Albuterol (Duoneb) 3 ml INH NOW STA Stop: 10/15/19 02:37 Last Admin: 10/15/19 02:43 Dose: 3 ml Documented by: [id number] Furosemide (Lasix) 20 mg IV NOW STA Stop: 10/15/19 03:37 Last Admin: 10/15/19 03:50 Dose: 20 mg Documented by: [id number] Levofloxacin (Levaquin) 750 mg PO ONE ONE Stop: 10/15/19 03:54 Last Admin: 10/15/19 04:04 Dose: Not Given Documented by: [id number] Levofloxacin (Levaquin) Confirm Administered Dose 750 mg PO .STK-MED ONE Stop: 10/15/19 04:00 Last Admin: 10/15/19 04:02 Dose: 750 mg Documented by: [id number] Methylprednisolone (Solumedrol) 60 mg IV NOW STA Stop: 10/15/19 03:37 Last Admin: 10/15/19 03:51 Dose: 60 mg Documented by: [id number] Medical Decision Making Differential Diagnosis Differential diagnoses includes but is not limited to pneumonia, bronchitis, COPD/Asthma exacerbation, pneumothorax, pulmonary embolism, congestive heart failure, acute coronary syndrome Medical Records Attestation: I reviewed the patient's medical records. Home Medications Current Medication List: was personally reviewed by me Laboratory Data Attestation: I reviewed the patient's lab results. Result diagrams: 10/15/19 02:36 10/15/19 02:36 Lab Results 10/15/19 10/15/19 10/15/19 Range/Units 02:36 02:36 02:36 WBC 10.45 (4.8-10.8) K/uL RBC 3.70 L (4.2-5.4) M/uL Hgb 11.7 L (12.0-16.0) g/dL Hct 35.4 L (37-47) % MCV 95.7 (80-100) fL MCH 31.6 (25-34) pg MCHC 33.1 (32-36) g/dL RDW Std Deviation 44.3 (36.4-46.3) fL RDW Coeff of [place] 12.7 (11.5-14.5) % Plt Count 232 (130-400) K/uL MPV 10.0 (7.4-10.4) fL Immature Gran % (Auto) 0.2 % Neut % (Auto) 90.8 % Lymph % (Auto) 4.5 % [place] % (Auto) 4.3 % Eos % (Auto) 0.0 % Baso % (Auto) 0.2 % Immature Gran # (Auto) 0.02 (0.00-0.02) K/uL Neut # (Auto) 9.49 H (1.4-6.5) K/uL Lymph # (Auto) 0.47 L (1.2-3.4) K/uL [place] # (Auto) 0.45 (0.11-0.59) K/uL Eos # (Auto) 0.00 (0-0.5) K/uL Baso # (Auto) 0.02 (0-0.2) K/uL PT 9.9 (9.0-12.0) Seconds INR 1.0 (0.9-1.1) APTT 23.0 (21.0-31.0) Seconds PTT Ratio 0.8 VBG pH (7.36-7.41) VBG pCO2 (38-50) mmHg VBG pO2 mmHg VBG HCO3 mmol/L VBG O2 Saturation % VBG Base Excess mEq/L Barometric Pressure mm/Hg Sodium 139 (136-145) mmol/L Potassium 4.3 (3.5-5.1) mmol/L Chloride 104 (98-107) mmol/L Carbon Dioxide 26 (21-32) mmol/L Anion Gap 9.0 (3-11) BUN 34 H (7-18) mg/dl Creatinine 1.43 H (0.6-1.2) mg/dl Est Cr Clr Drug Dosing 12.7 ml/min Est GFR ( Amer) 39.7 Est GFR (Non-Af Amer) 34.3 BUN/Creatinine Ratio 23.5 H (10-20) Glucose 161 H (70-99) mg/dl Lactate (0.4-2.0) mmol/L Calcium 8.3 L (8.5-10.1) mg/dl Magnesium 2.2 (1.8-2.4) mg/dl Total Bilirubin 0.5 (0.2-1) mg/dl AST 18 (15-37) U/L ALT 15 (12-78) U/L Alkaline Phosphatase 62 (45-117) U/L Troponin I 0.019 (0-0.045) ng/ml NT-Pro-B Natriuret Pep 2844 H (0-1800) pg/ml Total Protein 7.4 (6.4-8.2) gm/dl Albumin 3.4 (3.4-5.0) gm/dl Globulin 4.0 (2.5-4.0) gm/dl Albumin/Globulin Ratio 0.9 (0.9-2) Urine Color Urine Appearance (Clear) Urine pH (4.5-7.5) Ur Specific [place] (1.000-1.030) Urine Protein (Negative) Urine Glucose (UA) (Negative) Urine Ketones (Negative) Urine Blood (Negative) Urine Nitrite (Negative) Urine Bilirubin (Negative) Urine Urobilinogen (Negative) Ur Leukocyte Esterase (Negative) Urine WBC (Auto) (0-5) /hpf Urine RBC (Auto) (0-4) /hpf U Hyaline Cast (Auto) (0-5) /lpf U Epithel Cells (Auto) (0-5) /lpf Urine Bacteria (Auto) (Negative) Influenza Type A (PCR) (Neg) Influenza Type B (PCR) (Neg) 10/15/19 10/15/19 10/15/19 Range/Units 02:40 02:58 02:58 WBC (4.8-10.8) K/uL RBC (4.2-5.4) M/uL Hgb (12.0-16.0) g/dL Hct (37-47) % MCV (80-100) fL MCH (25-34) pg MCHC (32-36) g/dL RDW Std Deviation (36.4-46.3) fL RDW Coeff of [place] (11.5-14.5) % Plt Count (130-400) K/uL MPV (7.4-10.4) fL Immature Gran % (Auto) % Neut % (Auto) % Lymph % (Auto) % [place] % (Auto) % Eos % (Auto) % Baso % (Auto) % Immature Gran # (Auto) (0.00-0.02) K/uL Neut # (Auto) (1.4-6.5) K/uL Lymph # (Auto) (1.2-3.4) K/uL [place] # (Auto) (0.11-0.59) K/uL Eos # (Auto) (0-0.5) K/uL Baso # (Auto) (0-0.2) K/uL PT (9.0-12.0) Seconds INR (0.9-1.1) APTT (21.0-31.0) Seconds PTT Ratio VBG pH 7.34 L (7.36-7.41) VBG pCO2 47 (38-50) mmHg VBG pO2 34 mmHg VBG HCO3 25 mmol/L VBG O2 Saturation 64.0 % VBG Base Excess -1.0 mEq/L Barometric Pressure 734.4 mm/Hg Sodium (136-145) mmol/L Potassium (3.5-5.1) mmol/L Chloride (98-107) mmol/L Carbon Dioxide (21-32) mmol/L Anion Gap (3-11) BUN (7-18) mg/dl Creatinine (0.6-1.2) mg/dl Est Cr Clr Drug Dosing ml/min Est GFR ( Amer) Est GFR (Non-Af Amer) BUN/Creatinine Ratio (10-20) Glucose (70-99) mg/dl Lactate 3.7 H* (0.4-2.0) mmol/L Calcium (8.5-10.1) mg/dl Magnesium (1.8-2.4) mg/dl Total Bilirubin (0.2-1) mg/dl AST (15-37) U/L ALT (12-78) U/L Alkaline Phosphatase (45-117) U/L Troponin I (0-0.045) ng/ml NT-Pro-B Natriuret Pep (0-1800) pg/ml Total Protein (6.4-8.2) gm/dl Albumin (3.4-5.0) gm/dl Globulin (2.5-4.0) gm/dl Albumin/Globulin Ratio (0.9-2) Urine Color Urine Appearance (Clear) Urine pH (4.5-7.5) Ur Specific [place] (1.000-1.030) Urine Protein (Negative) Urine Glucose (UA) (Negative) Urine Ketones (Negative) Urine Blood (Negative) Urine Nitrite (Negative) Urine Bilirubin (Negative) Urine Urobilinogen (Negative) Ur Leukocyte Esterase (Negative) Urine WBC (Auto) (0-5) /hpf Urine RBC (Auto) (0-4) /hpf U Hyaline Cast (Auto) (0-5) /lpf U Epithel Cells (Auto) (0-5) /lpf Urine Bacteria (Auto) (Negative) Influenza Type A (PCR) Neg for Influ A (Neg) Influenza Type B (PCR) Neg for Influ B (Neg) 10/15/19 Range/Units 04:30 WBC (4.8-10.8) K/uL RBC (4.2-5.4) M/uL Hgb (12.0-16.0) g/dL Hct (37-47) % MCV (80-100) fL MCH (25-34) pg MCHC (32-36) g/dL RDW Std Deviation (36.4-46.3) fL RDW Coeff of [place] (11.5-14.5) % Plt Count (130-400) K/uL MPV (7.4-10.4) fL Immature Gran % (Auto) % Neut % (Auto) % Lymph % (Auto) % [place] % (Auto) % Eos % (Auto) % Baso % (Auto) % Immature Gran # (Auto) (0.00-0.02) K/uL Neut # (Auto) (1.4-6.5) K/uL Lymph # (Auto) (1.2-3.4) K/uL [place] # (Auto) (0.11-0.59) K/uL Eos # (Auto) (0-0.5) K/uL Baso # (Auto) (0-0.2) K/uL PT (9.0-12.0) Seconds INR (0.9-1.1) APTT (21.0-31.0) Seconds PTT Ratio VBG pH (7.36-7.41) VBG pCO2 (38-50) mmHg VBG pO2 mmHg VBG HCO3 mmol/L VBG O2 Saturation % VBG Base Excess mEq/L Barometric Pressure mm/Hg Sodium (136-145) mmol/L Potassium (3.5-5.1) mmol/L Chloride (98-107) mmol/L Carbon Dioxide (21-32) mmol/L Anion Gap (3-11) BUN (7-18) mg/dl Creatinine (0.6-1.2) mg/dl Est Cr Clr Drug Dosing ml/min Est GFR ( Amer) Est GFR (Non-Af Amer) BUN/Creatinine Ratio (10-20) Glucose (70-99) mg/dl Lactate (0.4-2.0) mmol/L Calcium (8.5-10.1) mg/dl Magnesium (1.8-2.4) mg/dl Total Bilirubin (0.2-1) mg/dl AST (15-37) U/L ALT (12-78) U/L Alkaline Phosphatase (45-117) U/L Troponin I (0-0.045) ng/ml NT-Pro-B Natriuret Pep (0-1800) pg/ml Total Protein (6.4-8.2) gm/dl Albumin (3.4-5.0) gm/dl Globulin (2.5-4.0) gm/dl Albumin/Globulin Ratio (0.9-2) Urine Color Yellow Urine Appearance Cloudy A (Clear) Urine pH 5.5 (4.5-7.5) Ur Specific [place] 1.014 (1.000-1.030) Urine Protein Negative (Negative) Urine Glucose (UA) Negative (Negative) Urine Ketones Negative (Negative) Urine Blood Negative (Negative) Urine Nitrite Negative (Negative) Urine Bilirubin Negative (Negative) Urine Urobilinogen Negative (Negative) Ur Leukocyte Esterase Negative (Negative) Urine WBC (Auto) 1-5 (0-5) /hpf Urine RBC (Auto) 5-10 H (0-4) /hpf U Hyaline Cast (Auto) 1-5 (0-5) /lpf U Epithel Cells (Auto) 10-20 H (0-5) /lpf Urine Bacteria (Auto) Negative (Negative) Influenza Type A (PCR) (Neg) Influenza Type B (PCR) (Neg) Imaging Data Attestation: I personally reviewed and interpreted this imaging study as follows: My Impression: ONE VIEW CHEST X-RAY: Bibasilar right greater than left opacities. No pneumothorax. Possible pulmonary edema. ECG Data Attestation: I personally reviewed and interpreted this ECG as follows: Indication: + SOB/dyspnea Rate (beats per minute): 137 Rhythm: + sinus tachycardia ECG [place]: + Left axis deviation ECG ST segments: + ST depression (possible anterior); no ST elevation Blood Pressure Blood Pressure Findings: Low blood pressure Blood Pressure Disposition: further management by hospitalist Additional Comments: French miranda BPs. MDM Narrative Patient is an 79-year-old female with a history of CHF, aortic stenosis, pne umonia, atypical pneumonia, kidney dysfunction presenting here today with onset of fairly rapid shortness of breath this evening. Endorsed a little bit of cough last day. No fevers reported. No trauma. Denies chest pain. Vomited earlier. No significant leg edema. Has had some improved with DuoNeb prior to arrival. Patient desaturates below 89% on room air improved with oxygen. Afebrile here but 37.6. White blood cell count of 10. Lactate and blood cultures influenza testing was sent. Troponin and BNP were sent. EKG here appears per my interpretation to be more of a sinus tachycardia. X-ray appears similar. Some concern for fluid overload on here versus may be pneumonia given that there is more right than left opacities. Given additional DuoNeb here. No evidence of significant hypercarbia. BNP is elevated. Detectable but not abnormal troponin. Kidney function appears similar to last previous value. This could represents more of a fluid overload situation and I did give her some very small amount Lasix. Patient had significant improvement of symptoms on reevaluation. Heart rate was improving. Given this improvement I have a lower suspicion this represents acute PE. Question of some possible ST depressions initially on the EKG but again the patient is pain-free. History of reactive airway issues and no using home breo; small dose of steroid give. Given that the patient has a history of atypical pneumonias in the past with atypical airspace findings on her x-ray here and elevated lactate which could be related to just breathing treatments and her respiratory issues, but feel that empiric treatment with a dose of Levaquin was indicated. Questions is she has a pneumonia. Blood cultures were obtained. Discussed with the hospitalist for further management. Impression & Plan Pulmonary edema, Hypoxia, Shortness of breath, Pneumonia Discharge Plan Visit Data Chief Complaint: Shortness of Breath/Dyspnea Stated Complaint: breathing difficulty ED Provider: Edgar Dallas Discharge Problem: Pulmonary edema, Hypoxia, Shortness of breath, Pneumonia Patient Disposition: Being Evaluated by Hospitalist Forms Stand Alone Forms: [employer] Prescriptions Prescriptions: No Action ranitidine HCl 150 mg tablet 150 mg PO HS Qty: 30 RF: 4 lisinopril 20 mg tablet 20 mg PO DAILY Qty: 90 RF: 3 lovastatin 40 mg tablet 40 mg PO DAILY Qty: 90 RF: 3 metoprolol succinate 50 mg tablet extended release 24 hr 50 mg PO DAILY Qty: 90 RF: 3 albuterol sulfate 90 mcg/actuation HFA aerosol inhaler 1 - 2 puffs inhalation .COMPLEX PRN (Reason: Shortness Of Breath Or Wheezing) RF: 0 (DME) Vortex Holding Chamber Spacer RF: 0 Breo Ellipta 200-25 mcg/dose Blister With Device 1 inh INHALATION DAILY RF: 0 furosemide [Lasix] 40 mg tablet 40 mg PO DAILY Qty: 30 RF: 0 aspirin [Aspir-81] 81 mg Tablet,Delayed Release (Dr/Ec) 81 mg PO DAILY RF: 0 Referrals Referrals: Joellen Kolb MD [Primary Care Provider] - Discharge Problem: Pulmonary edema Qualifiers: Chronicity: acute Qualified Code(s): J81.0 - Acute pulmonary edema Pneumonia Qualifiers: Pneumonia type: due to unspecified organism Laterality: right Lung location: lower lobe of lung Qualified Code(s): J18.9 - Pneumonia, unspecified organism The scribe's documentation has been prepared under my direction and personally reviewed by me in its entirety. I confirm that the note above accurately reflects all work, treatment, procedures, and medical decision making performed by me.
[2019-10-15] MEDS ORDERED: ONDANSETRON INJ 2 MG/ML 2 ML VIAL IV PRN (07:08)
[2019-10-15] MEDS ORDERED: KETOROLAC TROMETHAMINE 15 MG/ML VIAL IV PRN (07:08)
--- NOTE | 2019-10-15 07:43 | XRay Report ---
XR chest 1V portable CLINICAL HISTORY: Dyspnea COMPARISON STUDY: Chest CT December 25, 2018. Chest radiograph March 02, 2019. FINDINGS: Cardiomegaly is unchanged. There is no pneumothorax. There is a suspected small right pleur al effusion. There are bibasilar opacities. There is no evidence for overt pulmonary edema. IMPRESSION: 1. Bibasilar opacities, right greater than left. The findings may reflect pneumonia or atelectasis. P ulmonary edema could appear similar but is considered less likely. 2. Cardiomegaly. Electronically signed by: Frank Beal M.D. 10/15/2019 7:42 AM
[2019-10-15] MEDS: BREO ~ ORDER AWAITING ACTION SCH ×3 (08:19→22:09)
[2019-10-15] MEDS: HEPARIN SOD 5,000 UNIT/0.5 ML VIAL SQ SCH ×2 (08:20→20:17)
[2019-10-15] MEDS: ASPIRIN 81 MG ECTAB PO SCH (08:20)
[2019-10-15] MEDS: FUROSEMIDE 40 MG TAB PO SCH (08:20)
[2019-10-15] MEDS: FAMOTIDINE 20 MG TAB PO SCH ×2 (08:20→20:17)
[2019-10-15] MEDS: METOPROLOL SUCC 50MG EXT REL TAB PO SCH (08:28)
--- NOTE | 2019-10-15 09:18 | CT Scan Report ---
CT chest wo con CT DOSE: 213.93 mGy.cm HISTORY: Dyspnea SOB/pneumonia TECHNIQUE: Multiaxial CT images of the chest were performed without contrast. A dose lowering techni que was utilized adhering to the principles of ALARA. COMPARISON: 12/25/2018 FINDINGS: Moderate atherosclerotic change and ectasia thoracic aorta. This is unaltered. Several small mediastinal nodes unchanged from the prior study. Diffuse parenchymal infiltrate right lung base as well as right middle lobe region. Trace pleural flu id left and to a lesser extent right base. The left lung is considered clear. IMPRESSION: 1. Parenchymal infiltrative change right middle lobe and inferior aspect right lower lobe. 2. Lungs otherwise appear clear. 3. Trace bilateral pleural effusions. The above report was generated using voice recognition software. It may contain grammatical, syntax or spelling errors. Electronically signed by: Andrei Woods M.D. 10/15/2019 9:16 AM
[2019-10-15] MEDS ORDERED: methylPREDNISolone 40 MG in SYRINGE 0 ML IV SCH (10:30)
--- NOTE | 2019-10-15 12:46 | Pulmonary Consultation ---
Date of Consultation October 15, 2019 Assessment & Plan (1) Hypoxia: Patient presented with hypoxia secondary to pneumonia. She is started on levofloxacin as well as methylprednisolone and has had considerable improvement. 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 At this point patient seems to be responding well to levofloxacin and methylprednisolone Would not treat for fungal infection at this time Titrate supplemental O2 off as tolerated No chronic supplemental O2 use at home Continue to follow clinically Laterality: right Lung location: lower lobe of lung Pneumonia type: due to unspecified organism Qualified Code(s): J18.9 - Pneumonia, unspecified organism (3) Pleural effusion: Very small bilateral pleural effusions These are most likely associated inflammation from the pneumonia Would do plain film chest x-ray tomorrow morning No indication for intervention at this time but would want to watch closely (4) Hemoptysis: Small amount of bright red blood mixed with sputum Patient states that prior to coming in she had hematemesis. Question whether she may have aspirated some blood at that time At this point patient has no significant chest pain No evidence of necrosis on CT scan Continue to monitor as hemoptysis is a primary sequela of pneumonia Thank you for including us in the care of this patient. We will follow along with you. Please refer to Dr. Helm's addendum for further recommendations. Supervising Physician Co-Signing Physician Notes I evaluated the patient with Marko Fischer PA-C. Hypoxia and infiltrate likely related to community acquired pna. Procal 0.46. Change abx to azithro and rocephin. I do not think steroids are adding anything to her care. Unlikely COPD or asthma. Cannot rule out aspiration given distribution. Hemoptysis likely s econdary to pna. Will follow. Small b/l effusions likely related to severe and MS. 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 Cautious diuresis recommended. History of Present Illness Attending Physician: Henri Sanchez MD History of Present Illness Attending: Dr. Helm Is a pleasant 79-year-old [facility] woman who presents with increasing shortness of breath over the last 2 to 3 days. The patient has a past medical history including GERD, severe aortic stenosis, congenital heart murmur, NSTEMI, hypertension, recurrent pneumonia, cytomegalovirus bronchial lavage, history of pulmonary aspergillosis, questionable asthma. The patient states that over the last week she has increasing shortness of breath. She noticed over the last 2 to 3 days that this is worsened. She was brought to the emergency department via ambulance and was treated with nebulizer treatments, steroids, antibiotics with marked improvement since admission. The patient states that she has a history of asthma. However, there is no evidence of PFTs. The patient does follow with Dr. Hughes and is undergone bronchoscopy for which it is noted that she had copious amounts of mucopurulent secretions which grew out CMV and aspergillosis in the past. The patient also has significant hemorrhage during the last bronchoscopy which was lavaged until [facility]. Review of the patient's x-ray shows that she has pneumonia on the right. She states that she has small amount of hemoptysis this morning with bright red blood less than size of a dime x1. She has no chest pain or tightness. She says that her wheezing is gone. She has a mild nonproductive cough. She denies any fever, chills, sweats, rigors. She has no other acute complaints at this time. Allergies Allergy/AdvReac Type Severity Reaction Status Date / Time acetaminophen [From Tylenol] AdvReac Intermediate Nausea Verified 10/15/19 02:35 Penicillins AdvReac Unknown GI SYMPTOMS Verified 10/15/19 02:35 Home Medications Home Medications Medication Instructions Recorded Confirmed Type aspirin [Aspir-81] 81 mg PO DAILY 12/25/18 10/15/19 History Breo Ellipta 1 inh INHALATION DAILY 02/14/19 10/15/19 History Vortex Holding Chamber 02/14/19 07/23/19 History furosemide [Lasix] 40 mg PO DAILY #30 tab 03/04/19 10/15/19 Rx ranitidine HCl 150 mg tablet 150 mg PO HS #30 tab 05/03/19 10/15/19 Rx albuterol sulfate 90 mcg/actuation 1 - 2 puffs INHALATION .COMPLEX 08/17/19 10/15/19 History aerosol inhaler PRN gm lisinopril 20 mg tablet 20 mg PO DAILY #90 tab 09/24/19 10/15/19 Rx lovastatin 40 mg tablet 40 mg PO DAILY #90 tab 09/24/19 10/15/19 Rx metoprolol succinate 50 mg 50 mg PO DAILY #90 tab 09/24/19 10/15/19 Rx tablet,extended release 24 hr Patient History Medical History (Updated 10/15/19 @ 12:45 by Marko Fischer PA-C) Acute respiratory failure with hypoxia Aortic stenosis Aspergillosis CHF (congestive heart failure) (Acute) CMV (cytomegalovirus) infection Heart murmur (Chronic) High blood pressure (Chronic) High cholesterol (Chronic) Hypertension Multifocal pneumonia NSTEMI (non-ST elevated myocardial infarction) NSTEMI (non-ST elevated myocardial infarction) (Acute) Pneumonia (Acute) Sepsis (Acute) V-tach Surgical History (Updated 10/15/19 @ 12:37 by Marko Fischer PA-C) No significant past surgical history Family History Uncle Myocardial infarction Social History Preferred Language: Slovak Communication Ability: Effective Bandage Maker Required: No Beliefs That Will Affect Care: None Current Living Situation: Family and Homeless Feels Safe at Home: Yes Smoking Status: Never smoker Second Hand Exposure: No ; Hx Alcohol Use: No Hx Substance Use: No Review of Systems Review of Systems: All systems reviewed & are unremarkable except as noted in HPI & below Physical Exam Physical Exam: GENERAL : No acute distress. Pleasant EYES: No icterus, gaze conjugate. Pupils equal round and reactive to light NOSE: No evidence of epistaxis. Nasal cannula in place MOUTH: No lesions or candidiasis. Mucosa moist NECK: Supple LUNGS: CTA B/L, no wheezes or rhonchi. Some very fine crackles at the right base HEART: Regular, rate controlled. Significant loud murmur throughout the precordium ABDOMEN: Soft, NT, ND, BS Present. No guarding or rebound tenderness EXTREMITIES: No LE edema, pedal pulses intact NEURO: A&OX3. No focal deficits appreciated. Results & Data Vital Signs (Past 12 Hours) Vital Signs Temp Pulse Pulse Pulse Resp BP BP 10/15/19 11:47 37.5 C 88 18 118/82 10/15/19 09:00 10/15/19 08:26 110 H 118/59 L 10/15/19 08:14 105 H 10/15/19 07:11 37.0 C 103 H 18 10/15/19 06:31 37.8 C H 108 H 18 10/15/19 06:04 37.6 C H 105 H 26 H 95/62 L 10/15/19 05:00 121 H 22 110/59 L 10/15/19 04:27 117 H 27 H 104/50 L 10/15/19 04:07 116 H 25 H 97/50 L 10/15/19 02:45 116 H 24 10/15/19 02:41 10/15/19 02:40 115 H 25 H 10/15/19 02:25 37.6 C H 140 H 30 H 139/78 BP Pulse Ox 10/15/19 11:47 98 10/15/19 09:00 88 L 10/15/19 08:26 10/15/19 08:14 10/15/19 07:11 100/58 L 96 10/15/19 06:31 105/61 96 10/15/19 06:04 97 10/15/19 05:00 96 10/15/19 04:27 96 10/15/19 04:07 96 10/15/19 02:45 94 10/15/19 02:41 88 L 10/15/19 02:40 93 10/15/19 02:25 90 Laboratory Results 10/15/19 02:36 10/15/19 02:36 Laboratory Tests 10/15/19 10/15/19 02:36 08:31 Lactate 7.5 H* NT-Pro-B Natriuret Pep [address] chest wo con CT DOSE: 213.93 mGy.cm HISTORY: Dyspnea SOB/pneumonia TECHNIQUE: Multiaxial CT images of the chest were performed without contrast. A dose lowering technique was utilized adhering to the principles of ALARA. COMPARISON: 12/25/2018 FINDINGS: Moderate atherosclerotic change and ectasia thoracic aorta. This is unaltered. Several small mediastinal nodes unchanged from the prior study. Diffuse parenchymal infiltrate right lung base as well as right middle lobe region. Trace pleural fluid left and to a lesser extent right base. The left lung is considered clear. IMPRESSION: 1. Parenchymal infiltrative change right middle lobe and inferior aspect right lower lobe. 2. Lungs otherwise appear clear. 3. Trace bilateral pleural effusions. Electronically signed by: Andrei Woods M.D. 10/15/2019 9:16 AM PG Care Time/CCT Total # of Minutes Spent Total Time Spent with Patient: Total time spent is greater than 50% in coordination of care (as documented) at patient's floor/unit and/or counseling patient:
--- NOTE | 2019-10-15 12:50 | History & Physical Bridge Note ---
Date of Service October 15, 2019 History & Physical Bridge Note Patient seen and examined today. Already feeling better after breathing treatments. Overall, feels quite comfortable, though tired from being up all night. Reports no fevers/chills, chest pain, abdominal pain, nausea, or vomiting. - Continue abx and steroids - Continue nebulizers - Monitor
[2019-10-15] MEDS ORDERED: cefTRIAXone SODIUM 1,000 MG in DEXTROSE 5% 50 ML IV SCH (15:00)
[2019-10-15] MEDS ORDERED: AZITHROMYCIN 500 MG in DEXTROSE 5% 250 ML IV SCH (16:00)
[2019-10-16] MEDS ORDERED: LEVOFLOXACIN/D5W 750 MG/150 ML BAG IV SCH (05:00)
[2019-10-16 06:43] LABS: Hematocrit (blood only) 29.8 % (37-47); Hemoglobin 10.1 g/dL (12.0-16.0); Mean Corpuscular Hemoglobin 32.1 pg (25-34); Mean Corpuscular Hgb Conc 33.9 g/dL (32-36); Mean Corpuscular Volume 94.6 fL (80-100); Mean Platelet Volume 9.9 fL (7.4-10.4); Platelet Count 198 K/uL (130-400); RDW Coefficient of Variation 12.8 % (11.5-14.5); RDW Standard Deviation 44.2 fL (36.4-46.3); Red Blood Count 3.15 M/uL (4.2-5.4); White Blood Count 15.83 K/uL (4.8-10.8)
[2019-10-16 07:14] LABS: Calcium 8.6 mg/dl (8.5-10.1); Creatinine Clr Calc Pharmacy 10.6 ml/min; Est GFR (African American) 33.6; Potassium 4.3 mmol/L (3.5-5.1)
[2019-10-16] MEDS: BREO ~ ORDER AWAITING ACTION SCH (07:54)
[2019-10-16] MEDS: FAMOTIDINE 20 MG TAB PO SCH (07:56)
[2019-10-16] MEDS: METOPROLOL SUCC 50MG EXT REL TAB PO SCH ×2 (07:56→08:35)
[2019-10-16] MEDS: ASPIRIN 81 MG ECTAB PO SCH (07:56)
[2019-10-16] MEDS: FUROSEMIDE 40 MG TAB PO SCH (07:56)
[2019-10-16] MEDS: HEPARIN SOD 5,000 UNIT/0.5 ML VIAL SQ SCH (07:57)
--- NOTE | 2019-10-16 10:10 | Pulmonology Progress Note ---
Date of Service October 16, 2019 Assessment & Plan (1) Community acquired pneumonia: Patient is symptomatically improving. Continue antibiotics for total of 7 days. She can be transitioned to oral antibiotics at this point. I think she is safe to be discharged home. Cautious diuresis given her valvular issues. Pulmonary will sign off. Thank you for the consult. Please call with questions. Laterality: right Lung location: middle lobe of lung Qualified Code(s): J18.9 - Pneumonia, unspecified organism (2) Hemoptysis: Resolved. Likely secondary to her underlying pneumonia. (3) Bilateral pleural effusion: Subjective The patient is sitting up in a chair today. She denies any shortness of breath. She has some cough with productive sputum. The hemoptysis has pretty much resolved. She has been eating and tolerating her diet well. She denies any chest pain. Physical Exam Constitutional: Very pleasant elderly woman. Very short stature. Eyes: PERRL, conjunctivae normal, anicteric sclerae ENMT: external ear and nose normal, oropharynx normal Respiratory: normal respiratory effort, lungs clear to auscultation Cardiovascular: Systolic flow murmur appreciated. Mild edema bilaterally. Gastrointestinal (Abdomen): normal bowel sounds, soft, nontender, no hepatosplenomegaly Psychiatric: A+Ox3, euthymic affect Results & Data Vital Signs (Past 12 Hours) Vital Signs Temp Pulse Pulse Resp BP Pulse Ox 10/16/19 07:18 99.0 F 78 20 145/74 H 96 10/16/19 04:47 98.6 F 68 19 120/60 96 10/15/19 23:24 98.1 F 76 18 102/57 L 97 10/15/19 23:17 81 I personally reviewed the patient's pertinent labs and chest imaging. PG Care Time/CCT Total # of Minutes Spent Total Time Spent with Patient: Total time spent is greater than 50% in coordination of care (as documented) at patient's floor/unit and/or counseling patient:
[2019-10-16] MEDS ORDERED: AZITHROMYCIN 250 MG TAB PO ONE (13:50)
[2019-10-16] MEDS ORDERED: CEFDINIR 300 MG CAP PO STA (13:50)
--- NOTE | 2019-10-16 17:08 | Discharge Summary ---
Date of Service October 16, 2019 Principal Diagnosis Pneumonia Discharge Exam Constitutional WD/WN, vitals as above Eyes EOM intact bilaterally; no conjunctival abnormality ENMT external ear and nose normal, oropharynx normal Neck trachea midline, no thyromegaly normal visual inspection Respiratory normal respiratory effort, lungs clear to auscultation no respiratory distress Cardiovascular RRR, no murmur, no edema Gastrointestinal (Abdomen) Inspection/Auscultation: abdomen normal to inspection; abdomen not distended Musculoskeletal no cyanosis or clubbing, extremities motor strength 5/5 Skin no rashes, warm and dry Neurologic moves all extremities and awake Psychiatric Orientation: alert, oriented to person and cooperative Discharge Data Allergies Allergy/AdvReac Type Severity Reaction Status Date / Time acetaminophen [From Tylenol] AdvReac Intermediate Nausea Verified 10/15/19 02:35 Penicillins AdvReac Unknown GI SYMPTOMS Verified 10/15/19 02:35 Consultations 10/15/19 04:11 ED Decision to Admit Stat 10/15/19 07:08 Consult Pulmonology Routine Ordered Studies 10/15/19 07:08 CT chest wo con Routine Hospital Course (1) Pneumonia: CT chest showed RML and RLL pneumonia. - On ceftriaxone and azithromycin and improved significantly within 24 hours. - Pulm consulted - Still not clear if she has COPD, a restrictive lung disease, or other. Will get outpatient PFTs in 3 weeks to try to help determine. - Discharged on PO abx. (2) Acute respiratory failure with hypoxia: She was given 20mg IV Lasix in the ED. We continued her usual 40mg po daily, but I did not feel that CHF is the major issue. BNP was 2844, but previously 7629. CT chest showed trace bilteral effusions, but no sign of edema. - Discharged on home Lasix dosing. (3) Bronchospasm: Initially on steroids, but pulm did not feel it was beneficial. Continue Breo Ellipta (4) GERD (gastroesophageal reflux disease): Pepcid in place of ranitidine (5) Hypertension: BPs are in the lower range of normal on admission. Normal after. - Continued home lisinopril. (6) Aortic stenosis: Systolic murmur is not new. 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 Torito Davis on TuesdayOctober 26 at 10:15 am in the [facility] Office. *If you need to change this appointment, call the orrice at [phone].) Joellen Kolb MD [Primary Care Provider] - 10/23/19 10:00 am (Please, follow up at [facility] on TuesdayOctober 23 at 10:00 am. *If you need to change this appointment, call the office at [phone].) Veto Kaba MD [Physician] - 11/19/19 3:00 pm (Please go to the Pulmonary office at this time for your PFT testing.) Diet: Heart Healthy and Low Sodium (2gm) Addtl Attending Provider Instructions: You were here for pneumonia. We are treating you with antibiotics to help get rid of this. The lung doctors saw you and would like you to see them in their clinic in 3 weeks to test your breathing This can help them get you the right medication to prevent you from coming to the hospital. Please take the antibiotics for 5 more days which will help you feel better. Pending Studies at Discharge: No Stand-Alone Forms: My [facility], Smoking Cessation Medications and DC Order Prescriptions: New cefdinir 300 mg capsule 300 mg PO BID 5 Days Qty: 10 RF: 0 azithromycin 500 mg tablet 500 mg PO DAILY Qty: 1 RF: 0 Continued ranitidine HCl 150 mg tablet 150 mg PO HS Qty: 30 RF: 4 lisinopril 20 mg tablet 20 mg PO DAILY Qty: 90 RF: 3 lovastatin 40 mg tablet 40 mg PO DAILY Qty: 90 RF: 3 metoprolol succinate 50 mg tablet extended release 24 hr 50 mg PO DAILY Qty: 90 RF: 3 albuterol sulfate 90 mcg/actuation HFA aerosol inhaler 1 - 2 puffs inhalation .COMPLEX PRN (Reason: Shortness Of Breath Or Wheezing) RF: 0 (DME) Vortex Holding Chamber Spacer RF: 0 Breo Ellipta 200-25 mcg/dose Blister With Device 1 inh INHALATION DAILY RF: 0 furosemide [Lasix] 40 mg tablet 40 mg PO DAILY Qty: 30 RF: 0 aspirin [Aspir-81] 81 mg Tablet,Delayed Release (Dr/Ec) 81 mg PO DAILY RF: 0 Discharge Orders: Discharge Order (Routine); Ordered 10/16/19 Ordered By: Henri Sanchez Admission Data Admit Date/Time: 10/15/19 04:52 Attending Provider: Henri Sanchez Admit Provider: Cj Artis Primary Care Provider: Joellen Kolb Other Providers: Veto Kaba ; Henri Sanchez Other Interventions: Discharge Summary Assessment (RN) Last Done: 10/16/19 14:05 DC Date/Time DO NOT enter until pt leaves facility: 10/16/19 14:34
== END 2019-10-16 14:34 | disposition home or self-care (01) | DRG 193 ==
LOC: ED 02:18 → SUATTDRO 04:52 → 2S 04:52